=== PATIENT | male | born 1955 | race Caucasian/White ===

== ENCOUNTER 2020-07-03 17:02 | Inpatient (IN) | payer OTHER, SELFPAY ==
[2020-07-03] VITALS (7 sets, daily range): BP systolic 122–148; BP diastolic 60–90; PULSE 95–108; RESP 18–30; TEMP 37.3–37.8; O2SAT 88–95; BMI 34.4
[2020-07-03] MEDS: Acetaminophen 325 MG TABLET 650 MG PO (17:23)
[2020-07-03 17:26] LABS: MANUAL DIFF FLAG NO
--- NOTE | 2020-07-03 17:29 | CT_ITS ---
EXAMINATION: CT ANGIOGRAM OF THE CHEST WITH AND WITHOUT CONTRAST (CT PULMONARY ANGIOGRAM FOR PE) CLINICAL INFORMATION: Reason for Exam Shortness of breath, tachycardia, tachypnea, positive COVID COMPARISON: None TECHNIQUE: Prior to contrast administration, noncontrast localization images were obtained. Subsequently, multidetector volumetric imaging was performed from the thoracic inlet to below the diaphragms following the administration of 65 mL Omnipaque 350 intravenous contrast. No contrast reaction reported Sagittal, coronal, and MIP oblique sagittal reformatted images were obtained on the CT workstation, uploaded to PACS, and reviewed. This CT examination was performed using dose optimization techniques as appropriate, variously including the following: *Automated exposure control *Adjustment of mA and/or kV according to patient size (this includes techniques or standardized protocols for targeted exams where dose is matched to indication/reason for exam; i.e. extremities or head) *Use of iterative reconstruction technique Total exam dose-length product 397 mGy-cm FINDINGS: QUALITY OF STUDY/CONTRAST BOLUS: Suboptimal. PULMONARY ARTERIES: No large central or segmental pulmonary emboli. THORACIC AORTA: No aneurysm or dissection. LUNG: Scattered peripheral groundglass infiltrates are present suggestive of Covid 19 lung disease. PLEURA: No pleural effusion or pneumothorax. MEDIASTINUM: Normal heart size. No pericardial effusion. Coronary calcifications are present. No hilar or mediastinal lymphadenopathy. No evidence of septal bowing or right heart strain. CHEST WALL/AXILLA: No axillary or internal mammary lymphadenopathy. OSSEOUS STRUCTURES: No acute or suspicious osseous abnormality. UPPER ABDOMEN: Marked hepatic steatosis is present. No reflux of contrast into the hepatic veins to suggest elevated right heart pressures. CT/CT angio chest PE protocol IMPRESSION: 1. Suboptimal exam but no large central or segmental pulmonary emboli are seen. 2. Lung changes consistent with Covid 19 pulmonary disease. 3. Hepatic steatosis VTE: Negative, but suboptimal
[2020-07-03 17:30] LABS: Basophils Percent Auto 0.3 % (0-2); Hematocrit 45.8 % (42-52); Hemoglobin 15.3 g/dl (14.0-18.0); Imm Gran Abs Auto 0.02 X10*3/uL (0.00-0.03); Imm Gran Pct Auto 0.6 % (0.0-0.4); Lymphocytes Absolute Auto 1.4 X10*3/uL (1.2-4.9); Lymphocytes Percent Auto 39.1 % (20-40); Mean Corpuscular HGB Conc 33.4 g/dl (31.0-36.0); Mean Corpuscular Hemoglobin 30.1 pg (27.0-33.0); Mean Platelet Volume 10.1 fL (9.4-12.4); Monocytes Absolute Auto 0.4 X10*3/uL (0.1-1.2); Neutrophils Absolute Auto 1.8 X10*3/uL (2.0-8.3); Red Blood Count 5.09 X10*6/uL (4.60-5.80); Red Cell Distribution Width 13.1 % (11.0-16.0); White Blood Count 3.5 X10*3/uL (4.8-10.8)
[2020-07-03 17:31] LABS: Platelet Count 87 X10*3/uL (160-400)
--- NOTE | 2020-07-03 17:37 | ED.SOB ---
HPI - SOB/Dyspnea General Chief Complaint: Dyspnea Stated Complaint: INC SOB W/COUGH,+COVID 07/01/19 Time Seen by Provider: 07/03/20 17:24 Source: patient Mode of arrival: ambulatory Limitations: no limitations History of Present Illness HPI Narrative: This is 65-year-old male who reports history of lumbar disc disease status post back surgery, left knee surgery who presents via EMS from home with complaint of progressively worsening shortness of breath over the past couple of days. He reports 3 days ago he tested positive for COVID 19 after having several days of upper respiratory symptoms and ever since then he has been having shortness of breath worsening with exertion and feels like can not catch his breath. Upon arrival patient hypoxic at 88% on room air tachypneic and tachycardic improved with oxygen. Denies any prior cardiopulmonary history. MD elicited complaint: shortness of breath Related Data Home Medications Medication Instructions Recorded Confirmed No Known Home Meds 07/03/20 07/03/20 Allergies Allergy/AdvReac Type Severity Reaction Status Date / Time No Known Allergies Allergy Verified 07/03/20 17:13 Review of Systems Review of Systems: Constitutional: No Weight loss, No Fever, + Chills, + Night Sweats, No Fatigue, No Malaise ENT/Mouth: No Hearing loss, No Ear Pain, No Sinus Pain, No Hoarseness, No sore throat, + Rhinorrhea, No Swallowing Difficulty Eyes: No Eye Pain, No Swelling, No Redness, No Foreign Body, No Discharge, No Vision Changes Cardiovascular: No Chest Pain, + SOB, + Dyspnea on Exertion, No Edema, No Palpitations Respiratory: + Cough, No Sputum, No Wheezing, No Smoke Exposure, No Dyspnea Gastrointestinal: No Nausea, No Vomiting, No Diarrhea, No Constipation, No abdominal Pain, No Hematochezia, No Melena Genitourinary: no irregular bleeding, No Dysuria, No Urinary Frequency, No Hematuria, No Urinary Incontinence, No Urgency Musculoskeletal: No joint pain, No Myalgias, No Joint Swelling Skin: No Skin Lesions, No rash Neuro: No Weakness, No Numbness, No Paresthesias, No Loss of Consciousness, No Dizziness, No Headache Psych: No Social Issues Heme/Lymph: No Bruising, No Bleeding,No Lymphadenopathy Endocrine: No Polyuria, No Polydipsia, No Temperature Intolerance Yes all other systems are reviewed and are negative PMFSH Past Medical History Medical History No known health problems Social History Social History Alcohol intake: current Alcohol intake frequency: a few times a month Alcohol type: beer Smoking Status: Former smoker Use of substances other than those prescribed or required for medical reasons: No Advance Directives: No Advance Directives Information Provided: Yes Physical Exam Vital Signs: Vital Signs: Last Vital Signs Temp 99.1 F 07/03/20 19:22 Pulse 98 07/03/20 19:22 Resp 24 H 07/03/20 19:22 BP 127/73 07/03/20 19:22 Pulse Ox 94 07/03/20 19:22 Body Mass Index 34.4 Reviewed Const: General: cooperative and in distress (Mild without oxygen improved significantly with 4 L of nasal cannula) respiratory; No intoxicated appearing Nutritional Appearance: average body habitus Orientation/consciousness: patient oriented x3 HENMT: Head: Yes normal to inspection Ears: hearing grossly normal bilaterally Eyes: General: appearance normal, both eyes and all related structures Visual Harrison: normal visual harrison by confrontation Neck: Neck: Yes normal visual inspection, No positive Brudzinski's sign, No positive Kernig's sign and No tender Thyroid: Thyroid normal Chest: Chest palpation & inspection: normal inspection of the chest Resp: Effort & Inspection: normal respiratory effort Cardio: Jugular venous distension: no JVD GI: Inspection: Yes normal to inspection Percussion: Yes normal to percussion Auscultation: normal bowel sounds : General: Yes no CVA tenderness Back/Spine/Pelvis: Back: no CVA tenderness Skin: General skin exam: no rashes or lesions noted Neuro: General: patient oriented x3 Extrem: General: Yes normal to inspection Course Course Course Narrative: 1730 In review 65-year-old male with history of back surgery and left knee surgery presenting via EMS with worsening cough and dyspnea for the past 3 days after testing positive for COVID-19 at Urgent Care in [place] and has been progressively getting worse with symptoms since. Upon arrival febrile, hypoxic, tachypneic, tachycardic improved with supplemental oxygen. COVID stratification labs along with cardiac enzymes, EKG chest x-ray ordered. Will treat with supportive care with nebs, steroids and go ahead and empirically cover for atypical PNA with ceftriaxone/ azithromycin. His SpO2 saturation 93 % NC- Will likely require admission. Rx consult placed. Reevaluation(s) Reevaluation #1: Resting comfortably after receiving treatment. In no acute distress SpO2 94% on 4 L. Does drop significantly without oxygen. CTA without evidence of pulmonary embolism does show scattered peripheral infiltrate consistent with COVID-19. Consultations Consultation #1: 5 Case discussed with hospitalist Elva accepted to service for admission. MDM - SOB/Dyspnea Differential Diagnosis Differential diagnosis: Likely pneumonia (COVID-19, COVID-19 pneumonia), pulmonary embolism and pleural effusion; Unlikely acute exacerbation of chronic obstructive airways disease, congestive heart failure, asthma with exacerbation, sleep apnea and anemia Medical Records Attestation: I reviewed the patient's medical records. Lab Data Attestation: I reviewed the patient's lab results. Result diagrams: 07/03/20 17:18 07/03/20 17:17 Labs: Lab Results 07/03/20 07/03/20 07/03/20 Range/Units 17:17 17:17 17:17 WBC (4.8-10.8) X10*3/uL RBC (4.60-5.80) X10*6/uL Hgb (14.0-18.0) g/dl Hct (42-52) % MCV (80-98) fL MCH (27.0-33.0) pg MCHC (31.0-36.0) g/dl RDW (11.0-16.0) % Plt Count (160-400) X10*3/uL MPV (9.4-12.4) fL Immature Gran % (Auto) (0.0-0.4) % Neut % (Auto) (45-73) % Lymph % (Auto) (20-40) % [place] % (Auto) (2-11) % Eos % (Auto) (0-4) % Baso % (Auto) (0-2) % Lymph # (Auto) (1.2-4.9) X10*3/uL [place] # (Auto) (0.1-1.2) X10*3/uL Eos # (Auto) (0.0-0.4) X10*3/uL Baso # (Auto) (0.0-0.2) X10*3/uL Abs Immat Gran (auto) (0.00-0.03) X10*3/uL Absolute Neuts (auto) (2.0-8.3) X10*3/uL Absolute Nucleated RBC (0.0-0.012) X10*3/uL Nucleated RBC % (auto) (0.0-0.2) /100WBC Hold Purple Top PT 14.0 H (10.8-13.0) SEC INR 1.2 H (0.9-1.1) APTT 34.9 (24.1-38.0) SEC Hold Blue Top SEE NOTE Sodium 141 (135-145) mmol/L Potassium 4.2 (3.3-5.1) mmol/l Chloride 104 (96-108) mmol/L Carbon Dioxide 25 (22-29) mmol/L Anion Gap 16 (12-20) BUN 18 H (9-16) mg/dL Creatinine 1.04 (0.5-1.4) mg/dL Estim Creat Clear Calc 88.6 Estimated GFR > 60 Random Glucose 115 (60-115) mg/dL Lactic Acid 1.9 (0.5-2.0) mmol/L Calcium 8.2 L (8.4-10.2) mg/dL Ferritin 1356 H (20-250) ng/mL Lactate Dehydrogenase 258 (118-273) U/L Troponin I High Sens (<3.5-35.0) ng/L C-Reactive Protein 5.05 H (< or = 0.50) mg/dL Procalcitonin ng/mL Hold Yellow Top 07/03/20 07/03/20 07/03/20 Range/Units 17:18 17:18 17:18 WBC 3.5 L (4.8-10.8) X10*3/uL RBC 5.09 (4.60-5.80) X10*6/uL Hgb 15.3 (14.0-18.0) g/dl Hct 45.8 (42-52) % MCV 90.0 (80-98) fL MCH 30.1 (27.0-33.0) pg MCHC 33.4 (31.0-36.0) g/dl RDW 13.1 (11.0-16.0) % Plt Count 87 L (160-400) X10*3/uL MPV 10.1 (9.4-12.4) fL Immature Gran % (Auto) 0.6 H (0.0-0.4) % Neut % (Auto) 50.0 (45-73) % Lymph % (Auto) 39.1 (20-40) % [place] % (Auto) 10.0 (2-11) % Eos % (Auto) 0.0 (0-4) % Baso % (Auto) 0.3 (0-2) % Lymph # (Auto) 1.4 (1.2-4.9) X10*3/uL [place] # (Auto) 0.4 (0.1-1.2) X10*3/uL Eos # (Auto) 0.0 (0.0-0.4) X10*3/uL Baso # (Auto) 0.0 (0.0-0.2) X10*3/uL Abs Immat Gran (auto) 0.02 (0.00-0.03) X10*3/uL Absolute Neuts (auto) 1.8 L (2.0-8.3) X10*3/uL Absolute Nucleated RBC 0.000 (0.0-0.012) X10*3/uL Nucleated RBC % (auto) 0.0 (0.0-0.2) /100WBC Hold Purple Top SEE NOTE PT (10.8-13.0) SEC INR (0.9-1.1) APTT (24.1-38.0) SEC Hold Blue Top Sodium (135-145) mmol/L Potassium (3.3-5.1) mmol/l Chloride (96-108) mmol/L Carbon Dioxide (22-29) mmol/L Anion Gap (12-20) BUN (9-16) mg/dL Creatinine (0.5-1.4) mg/dL Estim Creat Clear Calc Estimated GFR Random Glucose (60-115) mg/dL Lactic Acid (0.5-2.0) mmol/L Calcium (8.4-10.2) mg/dL Ferritin (20-250) ng/mL Lactate Dehydrogenase (118-273) U/L Troponin I High Sens (<3.5-35.0) ng/L C-Reactive Protein (< or = 0.50) mg/dL Procalcitonin ng/mL Hold Yellow Top See Note 07/03/20 07/03/20 Range/Units 17:18 17:18 WBC (4.8-10.8) X10*3/uL RBC (4.60-5.80) X10*6/uL Hgb (14.0-18.0) g/dl Hct (42-52) % MCV (80-98) fL MCH (27.0-33.0) pg MCHC (31.0-36.0) g/dl RDW (11.0-16.0) % Plt Count (160-400) X10*3/uL MPV (9.4-12.4) fL Immature Gran % (Auto) (0.0-0.4) % Neut % (Auto) (45-73) % Lymph % (Auto) (20-40) % [place] % (Auto) (2-11) % Eos % (Auto) (0-4) % Baso % (Auto) (0-2) % Lymph # (Auto) (1.2-4.9) X10*3/uL [place] # (Auto) (0.1-1.2) X10*3/uL Eos # (Auto) (0.0-0.4) X10*3/uL Baso # (Auto) (0.0-0.2) X10*3/uL Abs Immat Gran (auto) (0.00-0.03) X10*3/uL Absolute Neuts (auto) (2.0-8.3) X10*3/uL Absolute Nucleated RBC (0.0-0.012) X10*3/uL Nucleated RBC % (auto) (0.0-0.2) /100WBC Hold Purple Top PT (10.8-13.0) SEC INR (0.9-1.1) APTT (24.1-38.0) SEC Hold Blue Top Sodium (135-145) mmol/L Potassium (3.3-5.1) mmol/l Chloride (96-108) mmol/L Carbon Dioxide (22-29) mmol/L Anion Gap (12-20) BUN (9-16) mg/dL Creatinine (0.5-1.4) mg/dL Estim Creat Clear Calc Estimated GFR Random Glucose (60-115) mg/dL Lactic Acid (0.5-2.0) mmol/L Calcium (8.4-10.2) mg/dL Ferritin (20-250) ng/mL Lactate Dehydrogenase (118-273) U/L Troponin I High Sens 3.6 (<3.5-35.0) ng/L C-Reactive Protein (< or = 0.50) mg/dL Procalcitonin 0.03 ng/mL Hold Yellow Top Imaging Data CTA chest: Radiologist's impression: [address] [address] [address] Scan Report Signed Patient: Mohan GoldMR#: [id number] : 6Acct:[id number] Age/Sex: 65 / MADM Date: 07/03/20 Loc: .ED Attending Dr: Ordering Physician: Tesfaye Nicholson NP Date of Service: 07/03/20 Procedure(s): CT angio chest PE protocol Accession Number(s): [id number] cc: Tesfaye Nicholson 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 Subsequently, multidetector volumetric imaging was performed from the thoracic inlet to below the diaphragms following the administration of 65 mL Omnipaque 350 intravenous contrast. No contrast reaction reported Sagittal, coronal, and MIP oblique sagittal reformatted images were obtained on the CT workstation, uploaded to PACS, and reviewed. This CT examination was performed using dose optimization techniques as appropriate, variously including the following: *Automated exposure control *Adjustment of mA and/or kV according to patient size (this includes techniques or standardized protocols for targeted exams where dose is matched to indication/reason for exam; i.e. extremities or head) *Use of iterative reconstruction technique Total exam dose-length product 397 mGy-cm FINDINGS: QUALITY OF STUDY/CONTRAST BOLUS: Suboptimal. PULMONARY ARTERIES: No large central or segmental pulmonary emboli. THORACIC AORTA: No aneurysm or dissection. LUNG: Scattered peripheral groundglass infiltrates are present suggestive of Covid 19 lung disease. PLEURA: No pleural effusion or pneumothorax. MEDIASTINUM: Normal heart size. No pericardial effusion. Coronary calcifications are present. No hilar or mediastinal lymphadenopathy. No evidence of septal bowing or right heart strain. CHEST WALL/AXILLA: No axillary or internal mammary lymphadenopathy. OSSEOUS STRUCTURES: No acute or suspicious osseous abnormality. UPPER ABDOMEN: Marked hepatic steatosis is present. No reflux of contrast into the hepatic veins to suggest elevated right heart pressures. CT/CT angio chest PE protocol IMPRESSION: 1. Suboptimal exam but no large central or segmental pulmonary emboli are seen. 2. Lung changes consistent with Covid 19 pulmonary disease. 3. Hepatic steatosis VTE: Negative, but suboptimal Dictated By:AROLDO VIVAS MD Signed By:<Electronically signed by AROLDO VIVAS MD in [place]>07/03/20 1910 DD/ 1729 TD/TT: Spinning Mule Operator: MARK ECG Data Interpretation: Sinus tachycardia Rate [address] segment changes No previous to compare to Discharge Plan Discharge Clinical Impression: COVID-19, Hypoxia Patient Disposition: Admitted As Inpatient Prescriptions: No Action No Known Home Meds RF: 0
[2020-07-03 17:48] LABS: Lactic Acid 1.9 mmol/L (0.5-2.0)
[2020-07-03 17:50] LABS: Anion Gap 16 (12-20); Blood Urea Nitrogen 18 mg/dL (9-16); Calcium 8.2 mg/dL (8.4-10.2); Carbon Dioxide 25 mmol/L (22-29); Chloride 104 mmol/L (96-108); Creatinine Clr Calc Pharmacy 88.6; Estimated Glomerular Filt Rate > 60; Glucose Random 115 mg/dL (60-115); Potassium 4.2 mmol/l (3.3-5.1); Sodium 141 mmol/L (135-145)
[2020-07-03 17:52] LABS: INTERNATIONAL NORM RATIO 1.2 (0.9-1.1)
[2020-07-03] MEDS: dexAMETHasone sod phosphate 4 MG/ML VIAL 6 MG IVPUSH (17:53)
[2020-07-03] MEDS: cefTRIAXone sodium 1 GM in 0.9 % Sodium Chloride 50 ML IV ×2 (17:54→21:52)
[2020-07-03 17:55] LABS: Partial Thromboplastin Time 34.9 SEC (24.1-38.0)
[2020-07-03] MEDS: Albuterol Sulfate 90 MCG 8 GM INHALER 4 PUFF INHALE (17:56)
[2020-07-03 17:59] LABS: C Reactive Protein 5.05 mg/dL (< or = 0.50); Lactate Dehydrogenase 258 U/L (118-273)
[2020-07-03] MEDS: iohexoL 350 MG/ML 100 ML INFUS..BTL IV (18:09)
[2020-07-03 18:21] LABS: Ferritin 1356 ng/mL (20-250)
[2020-07-03 18:29] LABS: Troponin-I High Sensitivity 3.6 ng/L (<3.5-35.0)
[2020-07-03] MEDS: Azithromycin 500 MG in 0.9 % Sodium Chloride 250 ML 125 MG IV ×2 (18:30→22:11)
[2020-07-03 18:31] LABS: Procalcitonin 0.03 ng/mL
--- NOTE | 2020-07-03 19:21 | PM.IMHP ---
History of Present Illness Date of Service: 07/03/20 <Elva Feliciano NP - Last Filed: 07/03/20 20:07> Chief Complaint: Shortness of breath <Elva Feliciano NP - Last Filed: 07/03/20 20:07> 65 year old man with no significant medical history presenting with worsening shortness of breath since his Covid 19 diagnosis on Thursday. he reports that he had been together with some of his family approximately 2 weeks ago and then his and mother with whom he lives with started feeling ill. They went to an urgent care and were subsequently diagnosed with COVID-19. He reports worsening shortness of breath over the last 24 hours with cough, clear phlegm, fever, chills, runny nose. He denies nausea, vomiting, diarrhea, chest pain. Ferritin was 1356, lactic acid 1.9, LDH 258. all of his other labs were within acceptable limits. He was noted to be hypoxic at 80% on room air arrival to the ER. He was given a dose Rocephin azithromycin, Decadron, albuterol, Tylenol appear to be admitted for further management of acute respiratory failure secondary to COVID-19. <Elva Feliciano NP - Last Filed: 07/03/20 20:07> Review of Systems Review of Systems: Denies any recent fever chills or decrease in appetite respiratory See HPI cardiovascular is adjustment of any PND or edema gastrointestinal denies any dysphagia abdominal pain nausea vomiting or diarrhea genitourinary denies any dysuria frequency or hematuria musculoskeletal denies any joint pain or swelling neuropsych denies any weakness or seizures all other systems reviewed are negative <Elva Feliciano NP - Last Filed: 07/03/20 20:07> [facility] Medical History: Medical History (Updated 08/02/20 @ 00:00 by Omero White) No known health problems Pneumomediastinum Pneumothorax <DEZ Davis Last Filed: 07/03/20 20:07> Pertinent family history: diabetes <Elva Feliciano NP - Last Filed: 07/03/20 20:07> Surgical History: Surgical History H/O knee surgery <DEZ Davis Last Filed: 07/03/20 20:07> Social History: Social History Household Members: Spouse Housing: House Alcohol intake: current Alcohol intake frequency: a few times a month Alcohol type: beer Smoking Status: Former smoker service: No <Elva Feliciano NP - Last Filed: 07/03/20 20:07> Meds Allergies/Adverse reactions: Allergies Allergy/AdvReac Type Severity Reaction Status Date / Time No Known Allergies Allergy Verified 07/03/20 17:13 <Elva Feliciano NP - Last Filed: 07/03/20 20:07> Home medications: Home Medications Medication Instructions Recorded Confirmed Type No Known Home Meds 07/03/20 07/03/20 History <Elva Feliciano NP - Last Filed: 07/03/20 20:07> Physical Exam Vital Signs and Narrative: Vital Signs: Last Vital Signs Temp 99.3 F 07/03/20 18:39 Pulse 95 07/03/20 18:39 Resp 18 07/03/20 18:39 BP 127/73 07/03/20 18:39 Pulse Ox 94 07/03/20 18:39 Body Mass Index 34.4 <Elva Feliciano NP - Last Filed: 07/03/20 20:07> Appearing in no acute distress head is normocephalic atraumatic eyes pupils are PERRLA sclera is anicteric mouth throat mucous membranes are intact and moist neck is supple no lymphadenopathy, no JVD noted lung sounds are clear to auscultation heart regular rate rhythm, clear S1, S2 positive bowel sounds, abdomen is soft, nontender neuro patient is alert x3, no focal deficits <Elva Feliciano NP - Last Filed: 07/03/20 20:07> Results Labs CBC and Chem 7: : 07/23/20 05:30 07/24/20 05:27 <Elva Feliciano NP - Last Filed: 07/03/20 20:07> Labs: Laboratory Results - last 24 hr 07/03/20 07/03/20 07/03/20 17:17 17:17 17:17 MCV MCH MCHC RDW Plt Count MPV Immature Gran % (Auto) Neut % (Auto) Lymph % (Auto) [place] % (Auto) Eos % (Auto) Baso % (Auto) Lymph # (Auto) [place] # (Auto) Eos # (Auto) Baso # (Auto) Abs Immat Gran (auto) Absolute Neuts (auto) Absolute Nucleated RBC Nucleated RBC % (auto) Hold Purple Top PT 14.0 H INR 1.2 H APTT 34.9 Hold Blue Top SEE NOTE Anion Gap 16 Estim Creat Clear Calc 88.6 Estimated GFR > 60 Random Glucose 115 Lactic Acid 1.9 Calcium 8.2 L Ferritin 1356 H Lactate Dehydrogenase 258 Troponin I High Sens C-Reactive Protein 5.05 H Procalcitonin Hold Yellow Top 07/03/20 07/03/20 07/03/20 17:18 17:18 17:18 MCV 90.0 MCH 30.1 MCHC 33.4 RDW 13.1 Plt Count 87 L MPV 10.1 Immature Gran % (Auto) 0.6 H Neut % (Auto) 50.0 Lymph % (Auto) 39.1 [place] % (Auto) 10.0 Eos % (Auto) 0.0 Baso % (Auto) 0.3 Lymph # (Auto) 1.4 [place] # (Auto) 0.4 Eos # (Auto) 0.0 Baso # (Auto) 0.0 Abs Immat Gran (auto) 0.02 Absolute Neuts (auto) 1.8 L Absolute Nucleated RBC 0.000 Nucleated RBC % (auto) 0.0 Hold Purple Top SEE NOTE PT INR APTT Hold Blue Top Anion Gap Estim Creat Clear Calc Estimated GFR Random Glucose Lactic Acid Calcium Ferritin Lactate Dehydrogenase Troponin I High Sens C-Reactive Protein Procalcitonin Hold Yellow Top See Note 07/03/20 07/03/20 17:18 17:18 MCV MCH MCHC RDW Plt Count MPV Immature Gran % (Auto) Neut % (Auto) Lymph % (Auto) [place] % (Auto) Eos % (Auto) Baso % (Auto) Lymph # (Auto) [place] # (Auto) Eos # (Auto) Baso # (Auto) Abs Immat Gran (auto) Absolute Neuts (auto) Absolute Nucleated RBC Nucleated RBC % (auto) Hold Purple Top PT INR APTT Hold Blue Top Anion Gap Estim Creat Clear Calc Estimated GFR Random Glucose Lactic Acid Calcium Ferritin Lactate Dehydrogenase Troponin I High Sens 3.6 C-Reactive Protein Procalcitonin 0.03 Hold Yellow Top <Elva Feliciano NP - Last Filed: 07/03/20 20:07> Imaging Radiologist's Impressions: Impressions Chest CTA 07/03/20 17:29 IMPRESSION: 1. Suboptimal exam but no large central or segmental pulmonary emboli are seen. 2. Lung changes consistent with Covid 19 pulmonary disease. 3. Hepatic steatosis VTE: Negative, but suboptimal <Elva Feliciano NP - Last Filed: 07/03/20 20:07> Assessment and Plan (1) COVID-19: Status: Deleted <Elva Feliciano NP - Last Filed: 07/03/20 20:07> (2) Hypoxia: Status: Deleted <Elva Feliciano NP - Last Filed: 07/03/20 20:07> 65 year old man admitted with acute respiratory failure secondary to Covid 19. Acute hypoxic respiratory failure secondary to covid 19. continue supplemental oxygen. Decadron, Rocephin, azithromycin for viral pneumonia. Id consult. Amy for cough. Obesity. BMI 34.4. Discussed importance of weight loss. DVT prophylaxis with Lovenox. Discussed with Dr. Heart Full code <Elva Feliciano NP - Last Filed: 07/03/20 20:07>
[2020-07-03] MEDS: guaiFENesin DM 100/10/5 ML 5 ML SYRUP PO (22:14)
[2020-07-04] VITALS (8 sets, daily range): BP systolic 117–131; BP diastolic 61–83; PULSE 86–118; RESP 16–35; TEMP 36.4–38.4; O2SAT 90–99; BMI 34.4
[2020-07-04] MEDS: 0.9 % Sodium Chloride Flush 3 ML SYRINGE IVFLUSH ×3 (00:07→16:46)
[2020-07-04] MEDS: guaiFENesin DM 100/10/5 ML 5 ML SYRUP PO ×3 (04:14→17:47)
[2020-07-04 06:51] LABS: Hematocrit 42.8 % (42-52); Hemoglobin 14.5 g/dl (14.0-18.0); Imm Gran Abs Auto 0.01 X10*3/uL (0.00-0.03); Imm Gran Pct Auto 0.4 % (0.0-0.4); Lymphocytes Absolute Auto 0.6 X10*3/uL (1.2-4.9); Lymphocytes Percent Auto 23.7 % (20-40); MANUAL DIFF FLAG SCAN; Mean Corpuscular HGB Conc 33.9 g/dl (31.0-36.0); Mean Corpuscular Hemoglobin 30.3 pg (27.0-33.0); Mean Corpuscular Volume 89.5 fL (80-98); Mean Platelet Volume 10.1 fL (9.4-12.4); Monocytes Absolute Auto 0.3 X10*3/uL (0.1-1.2); Monocytes Percent Auto 9.6 % (2-11); Neutrophils Absolute Auto 1.8 X10*3/uL (2.0-8.3); Neutrophils Percent Auto 66.3 % (45-73); Red Blood Count 4.78 X10*6/uL (4.60-5.80); Red Cell Distribution Width 13.1 % (11.0-16.0); SCAN SMEAR FLAG 1; White Blood Count 2.7 X10*3/uL (4.8-10.8)
[2020-07-04 06:53] LABS: Platelet Count 90 X10*3/uL (160-400)
[2020-07-04 07:04] LABS: Anion Gap 19 (12-20); Blood Urea Nitrogen 17 mg/dL (9-16); Calcium 8.3 mg/dL (8.4-10.2); Carbon Dioxide 19 mmol/L (22-29); Chloride 105 mmol/L (96-108); Creatinine Clr Calc Pharmacy 112.4; Estimated Glomerular Filt Rate > 60; Glucose Random 131 mg/dL (60-115); Potassium 4.2 mmol/l (3.3-5.1); Sodium 139 mmol/L (135-145)
[2020-07-04 07:36] LABS: SLIDE REVIEW VERIFIED
--- NOTE | 2020-07-04 08:27 | MHC.CM.PN ---
pt lives c his in their home . he reports that he is independent in his care. his is able to help him should he need it, this will include a ride home at dc. at this time there is no need for any svcs at dc. dc plan is therefore home no svcs. cm to cont. to follow.
--- NOTE | 2020-07-04 10:09 | HO.PM.IMPN ---
Subjective Subjective Date of Service: 07/05/20 Interval History: Seen in follow-up for acute hypoxic respiratory failure due to COVID infection. Still having difficulty breathing and coughing a lot. Robitussin does not seem to be helping. Review of Systems Gen: no fever Resp: + sob, + cough CV: no chest, no العلي, no leg edema GI: No n/v, no abd pain Neuro: No confusion Physical Exam Vital Signs: Vital Signs: Last Vital Signs Temp 97.9 F 07/04/20 08:00 Pulse 103 H 07/04/20 08:00 Resp 20 07/04/20 08:00 BP 124/79 07/04/20 08:00 Pulse Ox 92 07/04/20 08:00 Body Mass Index 34.4 General: AO X 3, no acute distress Resp: CTA bilateral CVS: S1,S2,RRR GI: +BS, NT, no distention Skin: No rash Neuro: motor grossly intact Psych: appropriate affect Objective Data Current Medications Generic Name Dose Route Start Last Admin Trade Name Freq PRN Reason Stop Dose Admin Acetaminophen 650 mg 07/03/20 21:05 Acetaminophen 325 Mg Tablet PO Q6H PRN Pain, Mild (Pain Scale 1-3) Dexamethasone Sodium Phosphate 6 mg 07/04/20 09:00 Dexamethasone Sod Phosphate 4 Mg/Ml Vial IVPUSH DAILY ASCENCION Guaifenesin/Dextromethorphan 5 ml 07/03/20 22:05 07/04/20 04:14 Guaifenesin Dm 100/10/5 Ml 5 Ml Syrup PO 5 ml Q6H PRN Administration cough Ceftriaxone Sodium 1 gm/ 50 mls @ 100 mls/hr 07/03/20 21:05 07/03/20 22:22 Sodium Chloride IV Infused Q24H ASCENCION Infusion Azithromycin 500 mg/ Sodium 250 mls @ 125 mls/hr 07/03/20 21:05 07/04/20 00:12 Chloride IV Infused Q24H ASCENCION Infusion Ondansetron HCl 4 mg 07/03/20 21:05 Ondansetron Hcl 4 Mg/2 Ml Vial IVPUSH Q8H PRN Nausea and Vomiting Pharmacy Consult 1 each 07/03/20 17:48 Consult Rx Perform Med Rec MISCELLANE ONCE PRN Consult order Sodium Chloride 3 ml 07/04/20 00:00 07/04/20 00:07 0.9 % Sodium Chloride Flush 3 Ml Syringe IVFLUSH 3 ml QSHIFT ASCENCION Administration Labs CBC & Chem 7: 07/04/20 06:05 07/04/20 06:05 Assessment and Plan (1) COVID-19: Status: Acute (2) Hypoxia: Status: Acute Assessment and Plan: 65 year old man admitted with acute respiratory failure secondary to Covid 19. Acute hypoxic respiratory failure secondary to covid 19. Covid pneumonia -O2 to maintain saturation 90% or greater. -id consult -Decadron for 10 days, d2/10 -id to decide for or against Remdesevir -empiric doxycycline and ceftriaxone in the event days severe underlying arterial infection. Obesity. BMI 34.4. Discussed importance of weight loss. DVT prophylaxis with Lovenox. Full code
[2020-07-04] MEDS: dexAMETHasone sod phosphate 4 MG/ML VIAL 6 MG IVPUSH (11:30)
[2020-07-04] MEDS: Enoxaparin Sodium 40 MG/0.4 ML SYRINGE SUBCUT (11:31)
--- NOTE | 2020-07-04 12:14 | PC.NURSE ---
pt c/o SOB at rest and upon exertion. SPO2 93% on 4L 02, lungs dimininished throughout. incentive spirometer at bedside. pt educated on use and demonstrates understanding. PRN cough medicine given upon request. denies dizziness/lightheadedness. updated via phone call.
--- NOTE | 2020-07-04 14:23 | W.PM.IDCN ---
History of Present Illness Data of Consult Service Date: 07/04/20 Primary Care Provider: Chaz Bearden MD [facility] Reason for consult: shortness of breath He presents to hospital with worsening shortness of breath with worsening dry cough over last 3 days He has had symptoms of shortness of breath since 06/24 after exposure 06/16 to six family members at a get together He has had chills and weakness His is also ill with COVID but not as symptomatic Review of Systems Review of Systems: Yes all other systems are reviewed and are negative Cardiovascular: Cardiovascular: Reports dyspnea Respiratory: Respiratory: Reports cough and Reports dyspnea PMFSH Past Medical History Medical History No known health problems Family History Family history: reviewed and not pertinent Surgical History Surgical History H/O knee surgery Social History Social History Household Members: Spouse Housing: House Do you presently have visiting nurse or other home services: No Alcohol intake: current Alcohol intake frequency: a few times a month Alcohol type: beer Smoking Status: Former smoker Use of substances other than those prescribed or required for medical reasons: No Currently Displaying Signs/Symptoms of Drug Intoxication Withdrawal: No Have you been hit, kicked, punched, or otherwise hurt by someone within the past year? If so, by whom?: No Do you feel safe in your current relationship?: Yes Is there a partner from a previous relationship who is making you feel unsafe now?: No Are you made to feel afraid or neglected: No Advance Directives: No Advance Directives Information Provided: Yes Do you have thoughts of harming others: None Do you have a plan to hurt others: No Plan Recently lost weight without trying: No service: No Meds Allergies Allergy/AdvReac Type Severity Reaction Status Date / Time No Known Allergies Allergy Verified 07/03/20 17:13 Home Medications Medication Instructions Recorded Confirmed Type No Known Home Meds 07/03/20 07/03/20 History Physical Exam Vital Signs: Vital Signs: Last Vital Signs Temp 97.5 F 07/04/20 11:43 Pulse 105 H 07/04/20 11:43 Resp 16 07/04/20 11:43 BP 122/75 07/04/20 11:43 Pulse Ox 93 07/04/20 11:43 Body Mass Index 34.4 Const: Other: he is slumped over guardrail in bed trying to use incentive spirometer General: cooperative Orientation/consciousness: oriented to person, oriented to place and oriented to time HENMT: Head: Yes normal to inspection Ears: hearing grossly normal bilaterally Mouth: Normal oral and palatal mucosa present Eyes: General: appearance normal, both eyes and all related structures Resp: Effort & Inspection: abnormal respiratory pattern and labored Cardio: Rate: tachycardic Rhythm: regular rhythm GI: Inspection: Yes normal to inspection Palpation (GI): Soft to palpation and nontender : General: Yes no CVA tenderness Back/Spine/Pelvis: Back: no CVA tenderness Skin: General skin exam: no rashes or lesions noted Neuro: General: oriented to person, oriented to place and oriented to time Extrem: General: Yes normal to inspection Assessment and Plan (1) COVID-19: Problem details: Moderate COVID He has worsening respiratory status and is now day 11 of symptoms He has no evidence of bacterial pneumonia with no productive sputum,no leukocytosis ,no lobar pneumonia and very low procalcitonin of .03 which is indicative of viral not bacterial process Antibiotics are not used to treat viral or postviral lung process It is possible for him to have lung damage ?pulmonary fibrosis pattern post COVID Remdesivir is not useful except for early viral phase when there is is high viral load Status: Acute Can still use steroids although he is at outer limit of their benefit as well, give for 10 days Stop Ceftriaxone and Azithromycin No Remdesivir indication Oxygen support Isolation (2) Hypoxia: Status: Acute Results Labs CBC & Chem 7: 07/04/20 06:05 07/04/20 06:05 Labs: Short CBC 07/03/20 07/04/20 Range/Units 17:18 06:05 WBC 3.5 L 2.7 L (4.8-10.8) X10*3/uL Hgb 15.3 14.5 (14.0-18.0) g/dl Hct 45.8 42.8 (42-52) % Plt Count 87 L 90 L (160-400) X10*3/uL BMP 07/03/20 07/04/20 17:17 06:05 Sodium 141 139 Potassium 4.2 4.2 Chloride 104 105 Carbon Dioxide 25 19 L BUN 18 H 17 H Creatinine 1.04 0.82 Calcium 8.2 L 8.3 L
[2020-07-04] MEDS: Acetaminophen 325 MG TABLET 650 MG PO (20:42)
[2020-07-04] MEDS: diphenhydrAMINE HCL 50 MG/ML VIAL 25 MG IVPUSH (20:42)
[2020-07-04] MEDS: HYDROcodone/Homat 5/1.5/5 ML 5 ML SYRUP PO (20:59)
[2020-07-04] MEDS: Albuterol Sulfate 90 MCG 8 GM INHALER 2 PUFF INHALE (22:00)
[2020-07-05] VITALS (7 sets, daily range): BP systolic 116–130; BP diastolic 73–78; PULSE 90–108; RESP 16–40; TEMP 36.1–37.2; O2SAT 86–97
[2020-07-05] MEDS: guaiFENesin DM 100/10/5 ML 5 ML SYRUP PO ×2 (01:32→20:58)
[2020-07-05] MEDS: 0.9 % Sodium Chloride Flush 3 ML SYRINGE IVFLUSH ×3 (01:32→16:48)
[2020-07-05] MEDS: Albuterol Sulfate 90 MCG 8 GM INHALER 2 PUFF INHALE ×2 (01:34→05:44)
[2020-07-05] MEDS: HYDROcodone/Homat 5/1.5/5 ML 5 ML SYRUP PO ×2 (05:31→11:21)
--- NOTE | 2020-07-05 07:43 | PC.NURSE ---
Assumed care at 1900. About 2100, patient tripoding, short of breath, accessory muscle use, frequent cough, grunting, labored breathing. Patient very anxious and difficult to help regain control of his breathing. On 4.5 lpm spo2 was 90%; rr was 36-37, tachycardia 110's, T was 101.1; discussed with md, new orders for ventolin inhaler prn q2hrs and hydrocodone cough syrup prn, these were administered and patient was proned to very good effect, with hr down to 70's-80's, T within normal limits, and spo2 was 95-100% briefly. Patient had two more dyspnea episodes like this overnight, particularly around being out of bed to use the urinal, and this was treated with similar prn ventolin, prn cough medicine, and proning. Patient needs further education about proning and about inhaler use. FiO2 requirements were climbing overnight, from 4.5 lpm to 6lpm and then to NRB 100% this morning per MD. Lung sounds were dim throughout, patient did have audible wheezing early on, which has improved. Patient also reported a hx of sleep apnea, but that he had never used a CPAP machine, md aware. RT was updated regarding this patient and they had suggested possible hi flow if he continues to decline. Patient's had been updated at the start of the evening.
[2020-07-05] MEDS: Enoxaparin Sodium 40 MG/0.4 ML SYRINGE SUBCUT (10:53)
[2020-07-05] MEDS: dexAMETHasone sod phosphate 4 MG/ML VIAL 6 MG IVPUSH (10:53)
--- NOTE | 2020-07-05 11:05 | HO.PM.IMPN ---
Subjective Subjective Date of Service: 07/05/20 Interval History: Seen in follow-up for acute hypoxic respiratory failure due to COVID infection. Still having difficulty breathing and coughing a lot. Still hypoxic, cough. Getting relief with proning position Review of Systems Gen: no fever since yesterd Resp: + sob, + cough CV: no chest, no العلي, no leg edema GI: No n/v, no abd pain Neuro: No confusion Physical Exam Vital Signs: Vital Signs: Last Vital Signs Temp 98.2 F 07/05/20 03:46 Pulse 98 07/05/20 05:56 Resp 31 H 07/05/20 05:56 BP 130/78 07/05/20 03:46 Pulse Ox 97 07/05/20 05:56 Body Mass Index 34.4 General: AO X 3, no acute distress Resp: in prone positio, mild respiratory difficulty CVS: S1,S2,RRR GI: NT, no distention Skin: No rash Neuro: motor grossly intact Psych: appropriate affect Objective Data Current Medications Generic Name Dose Route Start Last Admin Trade Name Freq PRN Reason Stop Dose Admin Acetaminophen 650 mg 07/03/20 21:05 07/04/20 20:42 Acetaminophen 325 Mg Tablet PO 650 mg Q6H PRN Administration Pain, Mild (Pain Scale 1-3) Albuterol Sulfate 2 puff 07/05/20 00:25 07/05/20 05:44 Albuterol Sulfate 90 Mcg 8 Gm Inhaler INHALE 2 puff Q2H PRN Administration Shortness of Breath/Wheezing Dexamethasone Sodium Phosphate 6 mg 07/04/20 09:00 07/05/20 10:53 Dexamethasone Sod Phosphate 4 Mg/Ml Vial IVPUSH 6 mg DAILY ASCENCION Administration Enoxaparin Sodium 40 mg 07/04/20 11:00 07/05/20 10:53 Enoxaparin Sodium 40 Mg/0.4 Ml Syringe SUBCUT 40 mg Q24H ASCENCION Administration Guaifenesin/Dextromethorphan 5 ml 07/03/20 22:05 07/05/20 01:32 Guaifenesin Dm 100/10/5 Ml 5 Ml Syrup PO 5 ml Q6H PRN Administration cough Hydrocodone Bit/Homatropine Methylb 5 ml 07/04/20 20:32 07/05/20 05:31 Hydrocodone/Homat 5/1.5/5 Ml 5 Ml Syrup PO 5 ml Q6H PRN Administration cough Ondansetron HCl 4 mg 07/03/20 21:05 Ondansetron Hcl 4 Mg/2 Ml Vial IVPUSH Q8H PRN Nausea and Vomiting Pharmacy Consult 1 each 07/03/20 17:48 Consult Rx Perform Med Rec MISCELLANE ONCE PRN Consult order Sodium Chloride 3 ml 07/04/20 00:00 07/05/20 08:12 0.9 % Sodium Chloride Flush 3 Ml Syringe IVFLUSH 3 ml QSHIFT ASCENCION Administration Labs CBC & Chem 7: 07/04/20 06:05 07/04/20 06:05 Microbiology Microbiology Results: Microbiology 07/03/20 17:50 Blood - Venous Blood Culture - Preliminary No growth after 24 hours. 07/03/20 17:17 Blood - Venous Blood Culture - Preliminary No growth after 24 hours. Assessment and Plan (1) COVID-19: Status: Acute (2) Hypoxia: Status: Acute Assessment and Plan: 65 year old man admitted with acute respiratory failure secondary to Covid 19. Acute hypoxic respiratory failure secondary to covid 19. Covid pneumonia -O2 to maintain saturation 90% or greater. -Decadron for 10 days, D2/10 -empiric doxycycline and ceftriaxone in the event days severe underlying arterial infection. ID is not recommended antibiotics or Remdesevir at this time. Will focus on supportive care including proning. Continue Pronining Obesity. BMI 34.4. Discussed importance of weight loss. DVT prophylaxis with Lovenox. Full code
--- NOTE | 2020-07-05 18:15 | PC.NURSE ---
Patient remains in ISO unit on tele. Patient slept most of the day with little appetite. Pt self proning and chest PT done by this nurse. Vitals remain stable but unable to wean off nonrebreather.
[2020-07-06] VITALS (20 sets, daily range): BP systolic 122–150; BP diastolic 61–92; PULSE 103–121; RESP 20–48; TEMP 36–38.7; O2SAT 81–100
--- NOTE | 2020-07-06 | XR_ITS ---
EXAMINATION: XR CHEST CLINICAL INFORMATION: Acute respiratory failure COMPARISON: None TECHNIQUE: Portable upright AP view of the chest was obtained. FINDINGS: There are streaky opacities right perihilar and right infrahilar region and scattered opacities left mid and lower zone. There are bronchograms left retrocardiac region. Findings may suggest multifocal pneumonia, possibly atypical/viral. The heart is within normal size. The vascularity is normal. There is no overt effusion. The hilar and mediastinal contours and bony structures are unremarkable. XR/XR chest 1V IMPRESSION: Bilateral streaky and groundglass opacities with air bronchograms left retrocardiac region. Findings suggest multifocal pneumonia, possibly atypical/viral.
[2020-07-06] MEDS: 0.9 % Sodium Chloride Flush 3 ML SYRINGE IVFLUSH ×3 (00:15→16:32)
[2020-07-06] MEDS: HYDROcodone/Homat 5/1.5/5 ML 5 ML SYRUP PO ×3 (00:38→13:55)
[2020-07-06] MEDS: Albuterol Sulfate 90 MCG 8 GM INHALER 2 PUFF INHALE (02:59)
[2020-07-06] MEDS: Morphine Sulfate 2 MG/ML CARTRIDGE IVPUSH ×2 (03:24→03:39)
[2020-07-06] MEDS: guaiFENesin DM 100/10/5 ML 5 ML SYRUP PO ×2 (03:25→11:17)
--- NOTE | 2020-07-06 03:46 | PC.NURSE ---
Patient sitting on side of bed stating he is unable to prone or sit with HOB up at this time d/t coughing/choking . Patient previously given cough medication with minimal effect. On assessment , this patient appears to have increased work of breathing on 100% non rebreather, O2 sats 89%, using accessory muscles, RR 28, HR 105. Respiratory called to see patient, prn inhaler administered. Patient placed on high flow oxygen in addition to 100% non rebreather, O2 sats 88-89%. Dr. Barry notified, and came to unit to assess patient. Morphine 2 mg IV ordered / administered. O2 sats 91-93 % at present, will continue to monitor.
[2020-07-06] MEDS: dexAMETHasone sod phosphate 4 MG/ML VIAL 6 MG IVPUSH (07:46)
--- NOTE | 2020-07-06 08:20 | HO.PM.IMPN ---
Subjective Subjective Date of Service: 07/06/20 Interval History: Seen in follow-up for acute hypoxic respiratory failure due to COVID infection. Patient had hard time breathing overnight and is max on non-rebreather and high flow O2. Variable respiratory rate 20s to 40 and O2 sat has been as low as 85. ICU consulted Review of Systems Gen: no fever Resp: + sob, + cough CV: no chest, no العلي, no leg edema GI: No n/v, no abd pain Neuro: No confusion Physical Exam Vital Signs: Vital Signs: Last Vital Signs Temp 99.7 F 07/06/20 08:00 Pulse 113 H 07/06/20 08:00 Resp 33 H 07/06/20 08:00 BP 138/82 07/06/20 08:00 Pulse Ox 92 07/06/20 08:00 Body Mass Index 34.4 General: AO X 3, in moderate resp distress, but able to helen in full sentences Resp: diminished bilaterlly CVS: S1,S2,RRR,tachy GI: +BS, NT, no distention Skin: No rash Neuro: motor grossly intact Psych: appropriate affect Objective Data Current Medications Generic Name Dose Route Start Last Admin Trade Name Freq PRN Reason Stop Dose Admin Acetaminophen 650 mg 07/03/20 21:05 07/04/20 20:42 Acetaminophen 325 Mg Tablet PO 650 mg Q6H PRN Administration Pain, Mild (Pain Scale 1-3) Albuterol Sulfate 2 puff 07/05/20 00:25 07/06/20 02:59 Albuterol Sulfate 90 Mcg 8 Gm Inhaler INHALE 2 puff Q2H PRN Administration Shortness of Breath/Wheezing Alprazolam 0.125 mg 07/06/20 03:10 Alprazolam 0.25 Mg Tablet PO BID PRN anxiety/restlessness Dexamethasone Sodium Phosphate 6 mg 07/04/20 09:00 07/06/20 07:46 Dexamethasone Sod Phosphate 4 Mg/Ml Vial IVPUSH 6 mg DAILY ASCENCION Administration Enoxaparin Sodium 40 mg 07/04/20 11:00 07/05/20 10:53 Enoxaparin Sodium 40 Mg/0.4 Ml Syringe SUBCUT 40 mg Q24H ASCENCION Administration Guaifenesin/Dextromethorphan 5 ml 07/03/20 22:05 07/06/20 03:25 Guaifenesin Dm 100/10/5 Ml 5 Ml Syrup PO 5 ml Q6H PRN Administration cough Hydrocodone Bit/Homatropine Methylb 5 ml 07/04/20 20:32 07/06/20 06:36 Hydrocodone/Homat 5/1.5/5 Ml 5 Ml Syrup PO 5 ml Q6H PRN Administration cough Ondansetron HCl 4 mg 07/03/20 21:05 Ondansetron Hcl 4 Mg/2 Ml Vial IVPUSH Q8H PRN Nausea and Vomiting Pharmacy Consult 1 each 07/03/20 17:48 Consult Rx Perform Med Rec MISCELLANE ONCE PRN Consult order Sodium Chloride 3 ml 07/04/20 00:00 07/06/20 07:46 0.9 % Sodium Chloride Flush 3 Ml Syringe IVFLUSH 3 ml QSHIFT ASCENCION Administration Labs CBC & Chem 7: 07/04/20 06:05 07/04/20 06:05 Microbiology Microbiology Results: Microbiology 07/03/20 17:50 Blood - Venous Blood Culture - Preliminary No growth after 48 hours. 07/03/20 17:17 Blood - Venous Blood Culture - Preliminary No growth after 48 hours. Assessment and Plan (1) COVID-19: Status: Acute (2) Hypoxia: Status: Acute Assessment and Plan: 65 year old man admitted with acute respiratory failure secondary to Covid 19. Acute hypoxic respiratory failure secondary to covid 19 Covid pneumonia -clinically worse today -O2 to maintain saturation 90% or greater. -Decadron for 10 days, [id number] -empiric doxycycline and ceftriaxone in the event days severe underlying arterial infection. ID is not recommended antibiotics or Remdesevir at this time. Will focus on supportive care including proning. Continue Pronining -I discuss use of plasam with patient and he is in favor of this -Pulmonology/ICU consult -Check routine labs and prognostic labs Obesity. BMI 34.4. Discussed importance of weight loss. DVT prophylaxis with Lovenox. Full code
[2020-07-06 09:21] LABS: ABG PCO2 39 mmhg (32-45); PO2 ABG 59 mmhg (83-108); Pt Ventilation O2% 100%; pH ABG 7.45 (7.35-7.45)
[2020-07-06 09:22] LABS: Blood Gas Serial # 5414; HCO3 ABG 26 mmol/l (22-26); Oxygen Saturation ABG 91.1 %
[2020-07-06 09:47] LABS: PLT CLUMP 1; Red Cell Distribution Width 13.2 % (11.0-16.0)
[2020-07-06 09:48] LABS: Hematocrit 43.4 % (42-52); Hemoglobin 14.4 g/dl (14.0-18.0); Mean Corpuscular HGB Conc 33.2 g/dl (31.0-36.0); Mean Corpuscular Hemoglobin 30.3 pg (27.0-33.0); Mean Corpuscular Volume 91.2 fL (80-98); Mean Platelet Volume 9.5 fL (9.4-12.4); Platelet Count 114 X10*3/uL (160-400); Red Blood Count 4.76 X10*6/uL (4.60-5.80); White Blood Count 4.9 X10*3/uL (4.8-10.8)
[2020-07-06 10:01] LABS: D Dimer 300 NG/ML
[2020-07-06 10:19] LABS: Anion Gap 15 (12-20); Blood Urea Nitrogen 23 mg/dL (9-16); C Reactive Protein 11.47 mg/dL (< or = 0.50); Calcium 8.5 mg/dL (8.4-10.2); Carbon Dioxide 27 mmol/L (22-29); Chloride 103 mmol/L (96-108); Creatinine Clr Calc Pharmacy 108.4; Estimated Glomerular Filt Rate > 60; Glucose Random 150 mg/dL (60-115); Lactate Dehydrogenase 314 U/L (118-273); Potassium 3.9 mmol/l (3.3-5.1); Sodium 141 mmol/L (135-145)
[2020-07-06] MEDS: Enoxaparin Sodium 40 MG/0.4 ML SYRINGE SUBCUT (11:17)
--- NOTE | 2020-07-06 12:48 | P.CONCC_ITS ---
History of Present Illness Data of Consult Service Date: 07/06/20 [facility] Primary Care Provider: Chaz Bearden MD HPI Reason for consult: Level of care 65-year-old gentleman with now on underlying medical history admitted on 07/03/2020 with acute hypoxic respiratory failure secondary to COVID-19 with symptoms for approximately 5 days prior. Patient has been treated with dexamethasone and required high-level of supplemental FiO2, now maintain his O2 saturation around 90% on high-flow nasal cannula and non-rebreather. Review of Systems Constitutional: Constitutional: Reports malaise and Reports weakness Eyes: Eyes: Denies change in vision and Denies loss of vision Cardiovascular: Cardiovascular: Denies chest pain, Reports dyspnea and Reports dyspnea on exertion Respiratory: Respiratory: Reports dyspnea and Reports dyspnea on exertion Gastrointestinal: Gastrointestinal: Denies constipation and Denies diarrhea Genitourinary: Genitourinary: Denies urinary incontinence and Denies urinary urgency Integumentary/Breasts: Skin/Breast: Denies rash Neurologic: Denies focal weakness, Denies loss of vision and Reports weakness Endocrine: Endocrine: Denies cold intolerance and Denies heat intolerance Hematologic/Lymphatic: Hematologic/Lymphatic: Denies easy bleeding and Denies easy bruising PMFSH Past Medical History Medical History No known health problems Family History Family history: reviewed and not pertinent Surgical History Surgical History H/O knee surgery Social History Social History Household Members: Spouse Housing: House Do you presently have visiting nurse or other home services: No Alcohol intake: current Alcohol intake frequency: a few times a month Alcohol type: beer Smoking Status: Former smoker Use of substances other than those prescribed or required for medical reasons: No Currently Displaying Signs/Symptoms of Drug Intoxication Withdrawal: No Have you been hit, kicked, punched, or otherwise hurt by someone within the past year? If so, by whom?: No Do you feel safe in your current relationship?: Yes Is there a partner from a previous relationship who is making you feel unsafe now?: No Are you made to feel afraid or neglected: No Advance Directives: No Advance Directives Information Provided: Yes Do you have thoughts of harming others: None Do you have a plan to hurt others: No Plan Recently lost weight without trying: No service: No Meds Allergies Allergy/AdvReac Type Severity Reaction Status Date / Time No Known Allergies Allergy Verified 07/03/20 17:13 Home Medications Medication Instructions Recorded Confirmed Type No Known Home Meds 07/03/20 07/03/20 History Physical Exam Vital Signs: Vital Signs: Last Vital Signs Temp 98.9 F 07/06/20 11:40 Pulse 114 H 07/06/20 11:40 Resp 22 H 07/06/20 12:07 BP 141/80 H 07/06/20 11:40 Pulse Ox 85 L 07/06/20 11:40 Body Mass Index 34.4 Const: General: no acute distress, alert, awake and other (Tired) Eyes: Sclerae: sclerae normal EOM: EOMs intact bilaterally Neck: Neck: Yes no lymphadenopathy, Yes trachea midline and Yes supple Resp: Effort & Inspection: normal respiratory effort and no respiratory distress Auscultation: crackles (Diffuse bilateral) Cardio: Rate: tachycardic Rhythm: regular rhythm Heart sounds: no gallops, no murmurs and no rubs GI: Palpation (GI): Soft to palpation and Other GI palpation findings present ( Nontender) Auscultation: normal bowel sounds Extrem: General: No clubbing, No cyanosis and Yes edema (1+ bilateral) Results Labs CBC & Chem 7: 07/06/20 09:26 07/06/20 09:26 Labs: Short CBC 07/06/20 Range/Units 09:26 WBC 4.9 (4.8-10.8) X10*3/uL Hgb 14.4 (14.0-18.0) g/dl Hct 43.4 (42-52) % Plt Count 114 L D (160-400) X10*3/uL BMP 07/06/20 09:26 Sodium 141 Potassium 3.9 Chloride 103 Carbon Dioxide 27 BUN 23 H Creatinine 0.85 Calcium 8.5 Microbiology Microbiology Results: Microbiology 07/03/20 17:50 Blood - Venous Blood Culture - Preliminary No growth after 48 hours. 07/03/20 17:17 Blood - Venous Blood Culture - Preliminary No growth after 48 hours. Assessment and Plan (1) Acute respiratory failure with hypoxia: Status: Acute Impression: COVID-19 related ARDS resulting in acute hypoxic respiratory failure. Now maintains O2 saturation around 90% on high-flow nasal cannula and non-rebreather. Recommendations: Will administer 1 dose of IV Lasix 20 mg to keep euvolemic. Continue supplemental oxygen where high-flow nasal cannula and non-rebreather. At this time patient does not require intensive care unit level of care. Please notify for re-evaluation if his oxygenation start to worsen. (2) COVID-19: Status: Acute
[2020-07-06] MEDS: Furosemide 20 MG/2 ML VIAL IVPUSH (13:55)
--- NOTE | 2020-07-06 14:34 | PC.NURSE ---
Patient remains on nonrebreather and highflo. Maintained sats 84-91. Dr. Meneses and Dr. Lovett came in to see the patient. ABG and CXR obtained. Pt very weak and required assistance eating as the nonrebreather has to come on and off. Will continue to monitor.
[2020-07-06 16:52] LABS: ABG PCO2 38 mmhg (32-45); PO2 ABG 54 mmhg (83-108); Pt Ventilation O2% 100%; pH ABG 7.48 (7.35-7.45)
[2020-07-06 16:53] LABS: Base Excess ABG 4.1; Blood Gas Serial # 5396; HCO3 ABG 28 mmol/l (22-26); Oxygen Saturation ABG 89.1 %
--- NOTE | 2020-07-06 17:49 | PM.CCN ---
Critical Care Event Note Summary Code activated: No Narrative: Patient with slowly worsening oxygenation services the, now saturating 93% on high-flow nasal cannula/non-rebreather. Will start on CPAP support and transfer to intensive care. Critical Care Time (minutes): 0
--- NOTE | 2020-07-06 17:52 | PC.NURSE ---
Assumed care @ 15:00; Pt a/o x4.
--- NOTE | 2020-07-06 17:57 | PC.NURSE ---
Assumed care @ 15:00; Pt A/O x4, pt sats low, 83-85% on High flow/NRB since 16:00, RR 30's, Sinus-Tach 110's, pt lungs dim throughout, pt encouraged to deep breath/cough, pt states he feels more short of breath. Dr. Waite updated, STAT ABGs ordered and completed. Pt do to be transferred to ICU for BIPAP treatment. Pt aware of plan of care, called and updated on transfer.
--- NOTE | 2020-07-06 19:35 | PC.NURSE ---
Patient transferred from Isolation unit at 1800. Alert and oriented. Placed on CPAP-15, 80% fio2; spo2 is 96-100% currently, frequent dry cough; tachypnea was in the low 30's.. 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 Patient is on telemetry, had hr 106, is now 97, sinus rhythm. sbp in 130's. valentine placed per MD, and tolerated well. Skin is intact. last bm 2 days ago.
--- NOTE | 2020-07-06 20:00 | P.EN_ITS ---
Event Note Date of Service: 07/06/20 Event Note: Patient continue to decompensate with progressive hypoxia and max on NRB and High flow. Repeat ABG was was worse. Patient was reevaluated by the strategic marketing leader Dr. Lovett and will be admitted to the ICU.
[2020-07-07] VITALS (30 sets, daily range): BP systolic 116–148; BP diastolic 67–89; PULSE 95–116; RESP 15–37; TEMP 37.9–39; O2SAT 86–98
[2020-07-07] MEDS: 0.9 % Sodium Chloride Flush 3 ML SYRINGE IVFLUSH ×4 (00:40→23:21)
[2020-07-07 05:58] LABS: Monocytes Absolute Auto 0.3 X10*3/uL (0.1-1.2); PLT CLUMP 1; Red Cell Distribution Width 13.2 % (11.0-16.0); SCAN SMEAR FLAG 1
[2020-07-07 06:00] LABS: Hematocrit 43.5 % (42-52); Hemoglobin 14.4 g/dl (14.0-18.0); Imm Gran Abs Auto 0.06 X10*3/uL (0.00-0.03); Imm Gran Pct Auto 1.2 % (0.0-0.4); Lymphocytes Absolute Auto 0.7 X10*3/uL (1.2-4.9); Lymphocytes Percent Auto 14.6 % (20-40); Mean Corpuscular HGB Conc 33.1 g/dl (31.0-36.0); Mean Corpuscular Hemoglobin 30.3 pg (27.0-33.0); Mean Corpuscular Volume 91.6 fL (80-98); Mean Platelet Volume 9.6 fL (9.4-12.4); Monocytes Percent Auto 5.6 % (2-11); Neutrophils Absolute Auto 3.9 X10*3/uL (2.0-8.3); Neutrophils Percent Auto 78.6 % (45-73); Platelet Count 132 X10*3/uL (160-400); Red Blood Count 4.75 X10*6/uL (4.60-5.80)
[2020-07-07 06:03] LABS: MANUAL DIFF FLAG NO
[2020-07-07 06:16] LABS: Base Excess VBG 5.4 mmol/L; HCO3 VBG 31 mmol/L; Oxygen Saturation VBG 67.2 %; PCO2 VBG 48 mmhg; PO2 VBG 31 mmhg; pH VBG 7.42 (7.32-7.43)
[2020-07-07 06:27] LABS: Alanine Aminotransferase 54 U/L (0-40); Albumin Level 3.9 g/dL (3.5-5.0); Alkaline Phosphatase 51 U/L (39-117); Anion Gap 16 (12-20); Aspartate Amino Transferase 57 U/L (5-37); Bilirubin Total 1.5 mg/dL (0.0-1.0); Blood Urea Nitrogen 24 mg/dL (9-16); Calcium 8.5 mg/dL (8.4-10.2); Carbon Dioxide 31 mmol/L (22-29); Chloride 100 mmol/L (96-108); Creatinine Clr Calc Pharmacy 102.4; Estimated Glomerular Filt Rate > 60; Glucose Random 128 mg/dL (60-115); Magnesium 2.4 mg/dL (1.6-2.6); Phosphorus 3.4 mg/dL (2.7-4.5); Potassium 4.7 mmol/l (3.3-5.1); Sodium 142 mmol/L (135-145); Total Protein 6.9 g/dL (6.5-8.0)
[2020-07-07] MEDS: dexAMETHasone sod phosphate 4 MG/ML VIAL 6 MG IVPUSH (10:50)
[2020-07-07] MEDS: Enoxaparin Sodium 40 MG/0.4 ML SYRINGE SUBCUT (10:50)
--- NOTE | 2020-07-07 13:17 | P.PNCC_ITS ---
Subjective Subjective Date of Service: 07/07/20 Interval History: 65-year-old gentleman with no underlying medical history admitted on 07/03/2020 with acute hypoxic respiratory failure secondary to COVID-19 with symptoms for approximately 5 days prior. Patient has been treated with dexamethasone and required high-level of supplemental FiO2. His FiO2 requirements continue to escalate on 07/06/2020 requiring initiation of CPAP support and transfer to intensive care unit. No events overnight. Physical Exam Vital Signs: Vital Signs: Last Vital Signs Temp 100.2 F 07/07/20 13:00 Pulse 103 H 07/07/20 13:00 Resp 22 H 07/07/20 13:00 BP 127/77 07/07/20 13:00 Pulse Ox 91 L 07/07/20 13:00 Body Mass Index 34.4 Const: General: no acute distress, alert and awake Eyes: Sclerae: sclerae normal EOM: EOMs intact bilaterally Neck: Neck: Yes no lymphadenopathy, Yes trachea midline and Yes supple Resp: Effort & Inspection: normal respiratory effort and no respiratory distress Auscultation: crackles (Diffuse bilateral) Cardio: Rate: tachycardic Rhythm: regular rhythm Heart sounds: no gal lops, no murmurs and no rubs GI: Palpation (GI): Soft to palpation and Other GI palpation findings present ( Nontender) Auscultation: normal bowel sounds Extrem: General: No clubbing, No cyanosis and Yes edema (Trace bilateral) Objective Data Labs CBC & Chem 7: 07/07/20 05:38 07/07/20 05:38 Labs: Laboratory Results - last 24 hr 07/06/20 07/07/20 07/07/20 16:32 05:38 05:38 WBC 5.0 RBC 4.75 Hgb 14.4 Hct 43.5 MCV 91.6 MCH 30.3 MCHC 33.1 RDW 13.2 Plt Count 132 L MPV 9.6 Immature Gran % (Auto) 1.2 H Neut % (Auto) 78.6 H Lymph % (Auto) 14.6 L [place] % (Auto) 5.6 Eos % (Auto) 0.0 Baso % (Auto) 0.0 Lymph # (Auto) 0.7 L [place] # (Auto) 0.3 Eos # (Auto) 0.0 Baso # (Auto) 0.0 Abs Immat Gran (auto) 0.06 H Absolute Neuts (auto) 3.9 Absolute Nucleated RBC 0.000 Nucleated RBC % (auto) 0.0 ABG pH 7.48 H ABG pCO2 38 ABG pO2 54 L ABG HCO3 28 H ABG O2 Saturation 89.1 ABG Base Excess 4.1 VBG pH VBG pCO2 VBG pO2 VBG HCO3 VBG O2 Saturation VBG Base Excess Oxygen Given 100% Sodium 142 Potassium 4.7 D Chloride 100 Carbon Dioxide 31 H Anion Gap 16 BUN 24 H Creatinine 0.90 Estim Creat Clear Calc 102.4 Estimated GFR > 60 Random Glucose 128 H Calcium 8.5 Phosphorus 3.4 Magnesium 2.4 Total Bilirubin 1.5 H AST 57 H ALT 54 H Alkaline Phosphatase 51 Total Protein 6.9 Albumin 3.9 07/07/20 05:38 WBC RBC Hgb Hct MCV MCH MCHC RDW Plt Count MPV Immature Gran % (Auto) Neut % (Auto) Lymph % (Auto) [place] % (Auto) Eos % (Auto) Baso % (Auto) Lymph # (Auto) [place] # (Auto) Eos # (Auto) Baso # (Auto) Abs Immat Gran (auto) Absolute Neuts (auto) Absolute Nucleated RBC Nucleated RBC % (auto) ABG pH ABG pCO2 ABG pO2 ABG HCO3 ABG O2 Saturation ABG Base Excess VBG pH 7.42 VBG pCO2 48 VBG pO2 31 VBG HCO3 31 VBG O2 Saturation 67.2 VBG Base Excess 5.4 Oxygen Given Sodium Potassium Chloride Carbon Dioxide Anion Gap BUN Creatinine Estim Creat Clear Calc Estimated GFR Random Glucose Calcium Phosphorus Magnesium Total Bilirubin AST ALT Alkaline Phosphatase Total Protein Albumin Microbiology Microbiology Results: Microbiology 07/03/20 17:50 Blood - Venous Blood Culture - Preliminary No growth after 48 hours. 07/03/20 17:17 Blood - Venous Blood Culture - Preliminary No growth after 48 hours. Progress Note: A&P Assessment and plan (1) Acute respiratory failure with hypoxia: Status: Acute Assessment and Plan: Assessment: 65-year-old gentleman with acute hypoxic respiratory failure secondary to COVID-19 related ARDS requiring CPAP support. Plan: Neuro: No acute issues. Cardiac: Peripheral edema, will obtain 2D echocardiogram for evaluation underlying cardiac function. Pulmonary: Acute hypoxic respiratory failure secondary to COVID-19 ARDS requiring CPAP support. Continue to titrate off as tolerated. Continue dexamethasone for total of 10 days. Renal: No acute issues. Endo: No acute issues. GI: No acute issues. ID: COVID 19 Heme/Onc: No acute issues. Psych: No acute issues. Miscellaneous: No acute issues. Prophylaxis: Heparin Diet: Regular Critical care time spent: 45 minutes (2) Acute respiratory distress syndrome (ARDS) due to COVID-19 virus: Status: Acute Time Spent With Patient Total time spent with greater than 50% in coordination of care (as documented) at patient's floor/unit and/or counseling patient:: 0 Critical Care Time 45
[2020-07-07] MEDS: guaiFENesin 200 MG/10 ML 10 ML LIQUID PO (21:22)
[2020-07-08] VITALS (31 sets, daily range): BP systolic 108–167; BP diastolic 60–94; PULSE 88–103; RESP 18–923; TEMP 37.5–37.9; O2SAT 88–100
[2020-07-08 05:16] LABS: Basophils Percent Auto 0.2 % (0-2); Hematocrit 42.3 % (42-52); Hemoglobin 13.9 g/dl (14.0-18.0); Imm Gran Abs Auto 0.04 X10*3/uL (0.00-0.03); Imm Gran Pct Auto 0.8 % (0.0-0.4); Lymphocytes Absolute Auto 0.6 X10*3/uL (1.2-4.9); Lymphocytes Percent Auto 12.8 % (20-40); Mean Corpuscular HGB Conc 32.9 g/dl (31.0-36.0); Mean Corpuscular Hemoglobin 30.4 pg (27.0-33.0); Mean Corpuscular Volume 92.6 fL (80-98); Mean Platelet Volume 9.6 fL (9.4-12.4); Monocytes Absolute Auto 0.3 X10*3/uL (0.1-1.2); Monocytes Percent Auto 5.4 % (2-11); Neutrophils Percent Auto 80.8 % (45-73); Platelet Count 146 X10*3/uL (160-400); Red Blood Count 4.57 X10*6/uL (4.60-5.80); Red Cell Distribution Width 13.2 % (11.0-16.0); SCAN SMEAR FLAG 1
[2020-07-08 05:17] LABS: MANUAL DIFF FLAG NO
[2020-07-08 05:19] LABS: Base Excess VBG 8.2 mmol/L; HCO3 VBG 35 mmol/L; Oxygen Saturation VBG 41.3 %; PCO2 VBG 56 mmhg; PO2 VBG 23 mmhg; pH VBG 7.41 (7.32-7.43)
[2020-07-08 05:43] LABS: Albumin Level 3.6 g/dL (3.5-5.0); Anion Gap 15 (12-20); Blood Urea Nitrogen 27 mg/dL (9-16); Calcium 8.7 mg/dL (8.4-10.2); Carbon Dioxide 32 mmol/L (22-29); Chloride 102 mmol/L (96-108); Estimated Glomerular Filt Rate > 60; Glucose Random 144 mg/dL (60-115); Magnesium 2.4 mg/dL (1.6-2.6); Phosphorus 3.4 mg/dL (2.7-4.5); Potassium 4.2 mmol/l (3.3-5.1); Sodium 145 mmol/L (135-145)
[2020-07-08] MEDS: Enoxaparin Sodium 40 MG/0.4 ML SYRINGE SUBCUT (08:53)
[2020-07-08] MEDS: dexAMETHasone sod phosphate 4 MG/ML VIAL 6 MG IVPUSH (08:54)
[2020-07-08] MEDS: 0.9 % Sodium Chloride Flush 3 ML SYRINGE IVFLUSH ×2 (08:54→14:55)
[2020-07-08 09:53] LABS: SARS COV2 IgG Negative (Negative)
--- NOTE | 2020-07-08 11:16 | PM.CCPN ---
Subjective Subjective Date of Service: 07/08/20 Interval History: ICU day 3 for acute hypoxic respiratory failure secondary to COVID-19 ARDS. 65-year-old gentleman with no underlying medical history admitted on 07/03/2020 with acute hypoxic respiratory failure secondary to COVID-19 with symptoms for approximately 5 days prior. Patient has been treated with dexamethasone and required high-level of supplemental FiO2. His FiO2 requirements continued to escalate on 07/06/2020 requiring initiation of CPAP support and transfer to intensive care unit. No events overnight. Physical Exam Vital Signs: Vital Signs: Last Vital Signs Temp 99.5 F 07/08/20 10:00 Pulse 101 H 07/08/20 10:00 Resp 18 07/08/20 10:00 BP 123/66 07/08/20 10:00 Pulse Ox 91 L 07/08/20 10:00 Body Mass Index 34.4 Const: General: no acute distress, alert and awake Eyes: Sclerae: sclerae normal EOM: EOMs intact bilaterally Neck: Neck: Yes no lymphadenopathy, Yes trachea midline and Yes supple Resp: Effort & Inspection: normal respiratory effort and no respiratory distress (On CPAP or high-flow) Auscultation: crackles (Diffuse bilateral) Cardio: Rate: tachycardic Rhythm: regular rhythm Heart sounds: no gallops, no murmurs and no rubs GI: Palpation (GI): Soft to palpation and Other GI palpation findings present ( Nontender) Auscultation: normal bowel sounds Extrem: General: No clubbing, No cyanosis and Yes edema (Trace bilateral) Objective Data Labs CBC & Chem 7: 07/08/20 05:02 07/08/20 05:02 Labs: Laboratory Results - last 24 hr 07/06/20 07/08/20 07/08/20 14:10 05:02 05:02 WBC 5.0 RBC 4.57 L Hgb 13.9 L Hct 42.3 MCV 92.6 MCH 30.4 MCHC 32.9 RDW 13.2 Plt Count 146 L MPV 9.6 Immature Gran % (Auto) 0.8 H Neut % (Auto) 80.8 H Lymph % (Auto) 12.8 L [place] % (Auto) 5.4 Eos % (Auto) 0.0 Baso % (Auto) 0.2 Lymph # (Auto) 0.6 L [place] # (Auto) 0.3 Eos # (Auto) 0.0 Baso # (Auto) 0.0 Abs Immat Gran (auto) 0.04 H Absolute Neuts (auto) 4.0 Absolute Nucleated RBC 0.000 Nucleated RBC % (auto) 0.0 VBG pH VBG pCO2 VBG pO2 VBG HCO3 VBG O2 Saturation VBG Base Excess Sodium 145 Potassium 4.2 Chloride 102 Carbon Dioxide 32 H Anion Gap 15 BUN 27 H Creatinine 0.83 Estim Creat Clear Calc 111.0 Estimated GFR > 60 Random Glucose 144 H Calcium 8.7 Phosphorus 3.4 Magnesium 2.4 Albumin 3.6 SARS-CoV-2 IgG Ab Negative 07/08/20 05:02 WBC RBC Hgb Hct MCV MCH MCHC RDW Plt Count MPV Immature Gran % (Auto) Neut % (Auto) Lymph % (Auto) [place] % (Auto) Eos % (Auto) Baso % (Auto) Lymph # (Auto) [place] # (Auto) Eos # (Auto) Baso # (Auto) Abs Immat Gran (auto) Absolute Neuts (auto) Absolute Nucleated RBC Nucleated RBC % (auto) VBG pH 7.41 VBG pCO2 56 VBG pO2 23 VBG HCO3 35 VBG O2 Saturation 41.3 VBG Base Excess 8.2 Sodium Potassium Chloride Carbon Dioxide Anion Gap BUN Creatinine Estim Creat Clear Calc Estimated GFR Random Glucose Calcium Phosphorus Magnesium Albumin SARS-CoV-2 IgG Ab Microbiology Microbiology Results: Microbiology 07/03/20 17:50 Blood - Venous Blood Culture - Preliminary No growth after 48 hours. 07/03/20 17:17 Blood - Venous Blood Culture - Preliminary No growth after 48 hours. Progress Note: A&P Assessment and plan (1) Acute respiratory distress syndrome (ARDS) due to COVID-19 virus: Status: Acute Assessment and Plan: Assessment: 65-year-old gentleman with acute hypoxic respiratory failure secondary to COVID-19 related ARDS requiring CPAP support. Plan: Neuro: No acute issues. Cardiac: Peripheral edema, 2D echo is pending. Pulmonary: Acute hypoxic respiratory failure secondary to COVID-19 ARDS requiring CPAP support. Continue to titrate off as tolerated. Continue dexamethasone for total of 10 days. Renal: No acute issues. Endo: No acute issues. GI: No acute issues. ID: COVID 19 Heme/Onc: No acute issues. Psych: No acute issues. Miscellaneous: No acute issues. Prophylaxis: Heparin Diet: Regular Critical care time spent: 45 minutes (2) Acute respiratory failure with hypoxia: Status: Acute Time Spent With Patient Total time spent with greater than 50% in coordination of care (as documented) at patient's floor/unit and/or counseling patient:: 0 Critical Care Time 45
[2020-07-08] MEDS: guaiFENesin 200 MG/10 ML 10 ML LIQUID PO (18:12)
[2020-07-09] VITALS (16 sets, daily range): BP systolic 120–149; BP diastolic 64–98; PULSE 84–109; RESP 16–40; TEMP 36–37.9; O2SAT 85–97
[2020-07-09] MEDS: LORazepam 2 MG/ML VIAL 0.5 MG IVPUSH (03:17)
--- NOTE | 2020-07-09 05:06 | PC.NURSE ---
PT A&OX4. TMAX 100.2 CORE. NSR/ST 90-100s, HR UP TO 130s WITH EXERTION. SBP WNL. INITIALLY ON MAXED ON HFNC/NRB. DESATS EASILY WHEN REMOVED TO 70s. NO C/O SOB. PLACED ON CPAP 12/100% AT APPROX 0400 PER PT REQUEST AND MD ORDER. PRE-MEDICATED WITH 0.5 MG IV ATIVAN X1, PT ANXIOUS. MUNOZ IN PLACE. SKIN INTACT. TO BE TRANSFERRED TO [facility] AT THIS TIME, REPORT GIVEN TO IMC RN.
[2020-07-09] MEDS: Acetaminophen 325 MG TABLET 650 MG PO (06:03)
[2020-07-09 06:07] LABS: Hematocrit 44.9 % (42-52); Hemoglobin 14.8 g/dl (14.0-18.0); Imm Gran Abs Auto 0.04 X10*3/uL (0.00-0.03); Imm Gran Pct Auto 0.6 % (0.0-0.4); Lymphocytes Absolute Auto 0.9 X10*3/uL (1.2-4.9); Lymphocytes Percent Auto 13.5 % (20-40); MANUAL DIFF FLAG NO; Mean Corpuscular Hemoglobin 30.3 pg (27.0-33.0); Mean Platelet Volume 9.6 fL (9.4-12.4); Monocytes Absolute Auto 0.3 X10*3/uL (0.1-1.2); Monocytes Percent Auto 3.7 % (2-11); Neutrophils Absolute Auto 5.7 X10*3/uL (2.0-8.3); Neutrophils Percent Auto 82.2 % (45-73); Platelet Count 170 X10*3/uL (160-400); Red Blood Count 4.88 X10*6/uL (4.60-5.80); Red Cell Distribution Width 13.1 % (11.0-16.0)
[2020-07-09 06:14] LABS: HCO3 VBG 31 mmol/L; Oxygen Saturation VBG 27.8 %; PCO2 VBG 42 mmhg; PO2 VBG 17 mmhg; pH VBG 7.48 (7.32-7.43)
[2020-07-09 06:29] LABS: D Dimer 502 NG/ML
[2020-07-09 06:37] LABS: Alanine Aminotransferase 71 U/L (0-40); Albumin Level 3.8 g/dL (3.5-5.0); Alkaline Phosphatase 62 U/L (39-117); Anion Gap 17 (12-20); Aspartate Amino Transferase 54 U/L (5-37); Bilirubin Total 1.7 mg/dL (0.0-1.0); Blood Urea Nitrogen 31 mg/dL (9-16); Calcium 8.9 mg/dL (8.4-10.2); Carbon Dioxide 28 mmol/L (22-29); Chloride 103 mmol/L (96-108); Creatinine Clr Calc Pharmacy 100.2; Estimated Glomerular Filt Rate > 60; Glucose Random 123 mg/dL (60-115); Magnesium 2.4 mg/dL (1.6-2.6); Phosphorus 3.9 mg/dL (2.7-4.5); Sodium 144 mmol/L (135-145)
[2020-07-09] MEDS: 0.9 % Sodium Chloride Flush 3 ML SYRINGE IVFLUSH ×3 (08:04→20:16)
[2020-07-09] MEDS: dexAMETHasone sod phosphate 4 MG/ML VIAL 6 MG IVPUSH (08:04)
[2020-07-09 08:23] LABS: Ferritin 3020 ng/mL (20-250)
--- NOTE | 2020-07-09 11:00 | CA_ITS ---
Transthoracic Echocardiogram Patient (Last, First, Middle): Mohan Gold, Gender: Male Date of : 1955 Age: 65 Procedure Date: 07/09/2020 Procedure Type: Transthoracic Echocardiogram Location: [facility] [place] Height: 177.8 cm Weight: 108.86 kg BSA: 2.26 m2 Heart Rate: bpm BP: 125 / 66 mmHg Auto Wheel Alignment Specialist: SUJATHA Referring MD: Vijay Lovett MD Planning Aide: Jose Jane MD Symptoms: dyspnea Study Quality: Fair ECG Rhythm: Sinus Conclusions: - 1. Normal LV systolic function with mild LVH with grade 1 diastolic dysfunction 2. Mild aortic regurgitation 3. Normal RV systolic pressure 4. No pericardial effusion Findings Left Ventricle Normal left ventricular size and systolic function. There is mildly increased left ventricular wall thickness. The visually estimated ejection fraction is between 60-65%. Spectral Doppler is indicative of an impaired relaxation filling pattern. E/E prime ratio is <8, consistent with normal filling pressures. Evidence suggests grade I (mild) diastolic dysfunction. Right Ventricle Normal right ventricular cavity size and systolic function. Atria The left atrium is likely dilated. There is no evidence of interatrial shunt. The right atrium is normal in size. Aortic Valve There is mild calcification of the aortic valve. There is no aortic valve stenosis. There is mild aortic valve regurgitation. Mitral Valve Normal mitral valve structure and function. There is trace mitral valve regurgitation. There is no mitral valve stenosis. Pulmonic Valve The pulmonic valve was not well visualized. Tricuspid Valve Normal tricuspid valve structure. The right ventricular systolic pressure is normal. The right ventricular systolic pressure is 33 mmHg. There is no evidence of pulmonary hypertension. Great Vessels All visible segments of the aorta are normal in size. The pulmonary artery was not well visualized. Venous The inferior vena cava is normal in size and collapses greater than 50% with inspiration. Pericardium/Pleural There is no evidence of pericardial effusion. Prior Study Comparison No prior study available for comparison. Measurements 2D Linear Measurements IVSd: 1.30 0.6-0.9/0.6-1.0 cm LVIDd: 4.78 3.9-5.3/4.2-5.9 cm LVIDd Index: 2.12 2.4-3.2/2.2-3.1 cm/m2 LVIDs: 3.09 2.0-3.6 cm LVPWd: 1.23 0.7-1.1 cm Ao Root: 3.80 2.1-3.5 cm LA Diam: 3.80 2.7-3.8/3.0-4.0 cm LAIDs Index: 1.68 1.5-2.3 cm/m2 LV Mass: 292.66 67-162/88-224 g LV Mass Index: 129.49 43-95/49-115 g/m2 LVOT Diam: 2.60 3.0+(-)1.3 cm 2D Systolic Function EF 4C: 57.30 >55% Mitral Valve E'Lateral: 11.30 E'Medial: 7.54 Aortic Valve AoV Pk [place]: 1.17 AoV Pk Grad: 5.00 AI Pk [place]: 3.98 AI [place]: 2.00 LVOT LVOT Pk [place]: 1.25 LVOT Mn [place]: 0.74 LVOT VTI: 0.21 LVOT Pk Grad: 6.00 LVOT Mn Grad: 3.00 LVOT Diam: 2.60 LVOT Area: 5.31 Diastolic Function E'Medial: 7.54 E' Laterial: 11.30 Tricuspid Valve TR Pk Davon: 2.74 TR Pk Grad: 30.00 RA Press: 3.00 RVSP: 33.00 Great Vessels Aorta Ao Root-2D: 3.80 2.0-3.7 cm Ao Asc: 3.30 2.1-3.4 cm Updated in Other Vendor System with Status of Final Jose Jane MD electronically signed on 07/09/2020 5:19:12 PM with status of Final
--- NOTE | 2020-07-09 11:24 | MHC.CM.PN ---
Patient is still requiring IV Decadron and high flow O2. Home, no services is the goal for dc and CM will continue to follow for dc planning and possible need to adjust the dc plan.
[2020-07-09] MEDS: Enoxaparin Sodium 40 MG/0.4 ML SYRINGE SUBCUT (13:44)
--- NOTE | 2020-07-09 21:47 | PC.NURSE ---
ASSESSED PATIENT AT 1900. PATIENT IS ALERT AND ORIENTED X 3. NO DISTRESS, APPEARS MUCH MORE COMFORTABLE THAN THREE DAYS AGO. PATIENT IS BREATHING EASILY ON HIGH FLOW OXYGEN SYSTEM 90% FIO2 AND 50 LPM. PATIENT IS SPEAKING IN FULL SENTENCES AND HAS NO COMPLAINTS. HIS LUNGS SOUNDS CURRENTLY ARE CLEAR IN UPPERS AND DIM AT BASES. PATIENT HEART RATE REGULAR AND WNL. PATIENT IS NOT CURRENTLY COUGHING, NO DYSPNEA. PATIENT NEUROS INTACT, PERRLA. PATIENT DOES STILL HAVE MUNOZ CATHETER, PUTTING OUT CONCENTRATED YELLOW URINE, AND THIS RN DID DISCUSS WITH HIS ONCOMING EVENING RN THAT HE FEELS HE MAY BE ABLE TO UTILIZE THE URINAL NOW AND TO CONSIDER DC OF MUNOZ. PATIENT INDICATED HE WAS OOB TO CHAIR TODAY. HE ALSO INDICATED THAT HE HAS UPDATED HIS TO HIS CURRENT STATUS. CONTINUING TO MONITOR.
[2020-07-10] VITALS (14 sets, daily range): BP systolic 119–138; BP diastolic 63–87; PULSE 88–115; RESP 18–40; TEMP 36.6–37; O2SAT 86–95
[2020-07-10] MEDS: dexAMETHasone sod phosphate 4 MG/ML VIAL 6 MG IVPUSH (07:35)
[2020-07-10] MEDS: 0.9 % Sodium Chloride Flush 3 ML SYRINGE IVFLUSH ×2 (07:35→17:28)
[2020-07-10] MEDS: Enoxaparin Sodium 40 MG/0.4 ML SYRINGE SUBCUT (11:20)
--- NOTE | 2020-07-10 14:22 | HO.PM.IMPN ---
Subjective Subjective Date of Service: 07/10/20 Interval History: Seen in follow-up for acute hypoxic respiratory failure due to COVID infection and required some ICU level but did not arise to mechanical ventilation, just CPAP. He is doing better, however remains hypoxic and on high flow oxygen--he is not struggling as he did prior to going to ICU. He's thinking he might be able to go home in a few days. Review of Systems Gen: no fever Resp: + sob, no cough CV: no chest, no العلي, no leg edema GI: No n/v, no abd pain Neuro: No confusion Physical Exam Vital Signs: Vital Signs: Last Vital Signs Temp 98.0 F 07/10/20 11:33 Pulse 106 H 07/10/20 11:33 Resp 22 H 07/10/20 11:50 BP 135/66 07/10/20 11:33 Pulse Ox 95 07/10/20 11:33 Body Mass Index 34.4 Const: General: cooperative and comfortable Resp: Effort & Inspection: normal respiratory effort and able to speak in complete sentences Cardio: Jugular venous distension: no JVD Rhythm: regular rhythm Heart sounds: S1 normal heart sound present and S2 normal heart sound present GI: Palpation (GI): Soft to palpation Percussion: Yes normal to percussion Objective Data Current Medications Generic Name Dose Route Start Last Admin Trade Name Freq PRN Reason Stop Dose Admin Acetaminophen 650 mg 07/03/20 21:05 07/09/20 06:03 Acetaminophen 325 Mg Tablet PO 650 mg Q6H PRN Administration Pain, Mild (Pain Scale 1-3) Dexamethasone Sodium Phosphate 6 mg 07/04/20 09:00 07/10/20 07:35 Dexamethasone Sod Phosphate 4 Mg/Ml Vial IVPUSH 6 mg DAILY ASCENCION Administration Enoxaparin Sodium 40 mg 07/04/20 11:00 07/10/20 11:20 Enoxaparin Sodium 40 Mg/0.4 Ml Syringe SUBCUT 40 mg Q24H ASCENCION Administration Guaifenesin 10 ml 07/07/20 20:51 07/08/20 18:12 Guaifenesin 200 Mg/10 Ml 10 Ml Liquid PO 10 ml Q6H PRN Administration Cough Ondansetron HCl 4 mg 07/03/20 21:05 Ondansetron Hcl 4 Mg/2 Ml Vial IVPUSH Q8H PRN Nausea and Vomiting Pharmacy Consult 1 each 07/03/20 17:48 Consult Rx Perform Med Rec MISCELLANE ONCE PRN Consult order Sodium Chloride 3 ml 07/04/20 00:00 07/10/20 07:35 0.9 % Sodium Chloride Flush 3 Ml Syringe IVFLUSH 3 ml QSHIFT ASCENCION Administration Labs CBC & Chem 7: 07/09/20 06:00 07/09/20 06:00 Microbiology Microbiology Results: Microbiology 07/03/20 17:50 Blood - Venous Blood Culture - Final No growth after 5 days. 07/03/20 17:17 Blood - Venous Blood Culture - Final No growth after 5 days. Assessment and Plan (1) COVID-19: Status: Acute (2) Hypoxia: Status: Acute Assessment and Plan: 65 year old man admitted with acute respiratory failure secondary to Covid 19. Acute hypoxic respiratory failure secondary to covid 19 Covid pneumonia, required CPAP in ICU for several days and is making progress -O2 to maintain saturation 90% or greater and wean as much as possible -Decadron for 10 days, D7/10 -Of Abx, he was not candidate for Remdesevir d/t late presentation -I discuss use of plasam with patient and he is in favor of this -Check routine labs and prognostic labs Obesity. BMI 34.4. Discussed importance of weight loss. DVT prophylaxis with Lovenox. Full code
[2020-07-11] VITALS (12 sets, daily range): BP systolic 122–137; BP diastolic 61–75; PULSE 103–118; RESP 18–27; TEMP 36.4–36.6; O2SAT 88–96
[2020-07-11] MEDS: Morphine Sulfate 4 MG/ML CARTRIDGE IVPUSH (00:36)
[2020-07-11] MEDS: 0.9 % Sodium Chloride Flush 3 ML SYRINGE IVFLUSH ×4 (02:12→21:25)
[2020-07-11] MEDS: dexAMETHasone sod phosphate 4 MG/ML VIAL 6 MG IVPUSH (07:41)
--- NOTE | 2020-07-11 09:53 | PM.PNPUL ---
Subjective Subjective Date of Service: 07/11/20 Principal diagnosis: COVID - ARDS Interval history: I REVIEWED THE CASE AND HOSPITAL COURSE . PT STILL REQUIRING HIGH FLOW O2 AT 60 L/MT OTHERWISE DOING BETTER . Objective Data Labs CBC & Chem 7: 07/09/20 06:00 07/09/20 06:00 Microbiology Microbiology Results: Microbiology 07/03/20 17:50 Blood - Venous Blood Culture - Final No growth after 5 days. 07/03/20 17:17 Blood - Venous Blood Culture - Final No growth after 5 days. Review of Systems Constitutional: Reports weakness Eyes: Denies loss of vision Denies focal weakness, Denies loss of vision and Reports weakness Physical Exam Vital Signs: Vital Signs: Last Vital Signs Temp 97.9 F 07/11/20 07:22 Pulse 118 H 07/11/20 07:22 Resp 24 H 07/11/20 07:26 BP 122/61 07/11/20 07:22 Pulse Ox 92 07/11/20 07:22 Body Mass Index 34.4 Assessment and Plan Assessment and plan (1) COVID-19: Problem details: COMPLETE THE COURSE OF DEXAMETHASONE 6 MG IV FOR 10 DAYS Status: Acute (2) Acute respiratory distress syndrome (ARDS) due to COVID-19 virus: Problem details: STILL REQUIRING HIGH FLOW O2 AT 60 L/MT Status: Acute (3) Acute respiratory failure with hypoxia: Problem details: CONT. HIGH FLOW O2 BY NASAL CANULA . FOLLOW THE RESP. THERAPY , PROTOCOL TO WEAN OFF THE HIGH FLOW SLOWLY . NEXT STEP WOULD BE TO REDUCE THE FLOW DOWN TO 50 L/MT . GOAL IS TO KEEP O2 SAT 90 % OR ABOVE MAY TRY VENTI MASK , OR NASAL CANULA WITH OXIMIZER , WHEN TOLERATED . Status: Acute Time Spent With Patient Time: Total time spent is greater than 50% in coordination of care (as documented) at patient's floor/unit and/or counseling patient: Time with patient: 15 - 24 minutes
--- NOTE | 2020-07-11 11:20 | MHC.CM.PN ---
Per ROUNDS discussion, Patient is not yet medically cleared for dc (IV Decadron,high flow O2/Nonrebreather (still Hypoxic). Home is the goal for dc and CM will continue to follow for dc planning and possible need to adjust the dc plan.
--- NOTE | 2020-07-11 13:23 | MHC.CLN ---
F/U VARIABLE PO INTAKE DIET RX: REGULAR-APPROPRIATE 2000 CALORIES PER DAY WILL PROMOTE SLOW WT LOSS CONTINUE TO MONITOR PO CLOSELY FOLLOWING
[2020-07-11] MEDS: Enoxaparin Sodium 40 MG/0.4 ML SYRINGE SUBCUT (14:05)
--- NOTE | 2020-07-11 14:48 | HO.PM.IMPN ---
Subjective Subjective Date of Service: 07/11/20 Interval History: Seen in follow-up for acute hypoxic respiratory failure due to COVID infection and required some ICU level but did not arise to mechanical ventilation, just CPAP. He is doing better, however remains hypoxic and on high flow oxygen--he is not struggling as he did prior to going to ICU. He remains very hypoxic and requiring more and more oxygen Review of Systems Gen: no fever Resp: + sob, no cough CV: no chest, no العلي, no leg edema GI: No n/v, no abd pain Neuro: No confusion Physical Exam Vital Signs: Vital Signs: Last Vital Signs Temp 97.7 F 07/11/20 10:58 Pulse 113 H 07/11/20 10:58 Resp 20 07/11/20 11:10 BP 131/69 07/11/20 10:58 Pulse Ox 95 07/11/20 10:58 Body Mass Index 34.4 Const: General: cooperative and comfortable Resp: Effort & Inspection: normal respiratory effort and able to speak in complete sentences Cardio: Jugular venous distension: no JVD Rhythm: regular rhythm Heart sounds: S1 normal heart sound present and S2 normal heart sound present GI: Palpation (GI): Soft to palpation Percussion: Yes normal to percussion Objective Data Current Medications Generic Name Dose Route Start Last Admin Trade Name Freq PRN Reason Stop Dose Admin Acetaminophen 650 mg 07/03/20 21:05 07/09/20 06:03 Acetaminophen 325 Mg Tablet PO 650 mg Q6H PRN Administration Pain, Mild (Pain Scale 1-3) Dexamethasone Sodium Phosphate 6 mg 07/04/20 09:00 07/11/20 07:41 Dexamethasone Sod Phosphate 4 Mg/Ml Vial IVPUSH 6 mg DAILY ASCENCION Administration Enoxaparin Sodium 40 mg 07/04/20 11:00 07/11/20 14:05 Enoxaparin Sodium 40 Mg/0.4 Ml Syringe SUBCUT 40 mg Q24H ASCENCION Administration Guaifenesin 10 ml 07/07/20 20:51 07/08/20 18:12 Guaifenesin 200 Mg/10 Ml 10 Ml Liquid PO 10 ml Q6H PRN Administration Cough Ondansetron HCl 4 mg 07/03/20 21:05 Ondansetron Hcl 4 Mg/2 Ml Vial IVPUSH Q8H PRN Nausea and Vomiting Pharmacy Consult 1 each 07/03/20 17:48 Consult Rx Perform Med Rec MISCELLANE ONCE PRN Consult order Sodium Chloride 3 ml 07/04/20 00:00 07/11/20 07:41 0.9 % Sodium Chloride Flush 3 Ml Syringe IVFLUSH 3 ml QSHIFT ASCENCION Administration Labs CBC & Chem 7: 07/09/20 06:00 07/09/20 06:00 Microbiology Microbiology Results: Microbiology 07/03/20 17:50 Blood - Venous Blood Culture - Final No growth after 5 days. 07/03/20 17:17 Blood - Venous Blood Culture - Final No growth after 5 days. Assessment and Plan (1) COVID-19: Status: Acute (2) Acute respiratory distress syndrome (ARDS) due to COVID-19 virus: Status: Acute (3) Acute respiratory failure with hypoxia: Status: Acute Assessment and Plan: 65 year old man admitted with acute respiratory failure secondary to Covid 19. Acute hypoxic respiratory failure secondary to covid 19 Covid pneumonia, required CPAP in ICU for several days and is making progress -O2 to maintain saturation 90% or greater and wean as much as possible -Decadron for 10 days, D8/10 -Of Abx, he was not candidate for Remdesevir d/t late presentation -He received plasma -Check routine labs and prognostic labs -Pulmonary following Obesity. BMI 34.4. Discussed importance of weight loss. I updated the over the phone, she was concern about patient not getting PT and advises her that current requirement of oxgygen is not safe to do PT DVT prophylaxis with Lovenox.
[2020-07-12] VITALS (11 sets, daily range): BP systolic 127–141; BP diastolic 65–86; PULSE 97–115; RESP 18–22; TEMP 36.7–37.8; O2SAT 89–95
[2020-07-12] MEDS: dexAMETHasone sod phosphate 4 MG/ML VIAL 6 MG IVPUSH (08:19)
[2020-07-12] MEDS: 0.9 % Sodium Chloride Flush 3 ML SYRINGE IVFLUSH ×2 (08:19→16:31)
[2020-07-12 10:24] LABS: Anion Gap 14 (12-20); Blood Urea Nitrogen 29 mg/dL (9-16); Calcium 8.6 mg/dL (8.4-10.2); Carbon Dioxide 31 mmol/L (22-29); Chloride 105 mmol/L (96-108); Creatinine Clr Calc Pharmacy 102.4; Estimated Glomerular Filt Rate > 60; Glucose Random 188 mg/dL (60-115); Potassium 4.1 mmol/l (3.3-5.1); Sodium 146 mmol/L (135-145)
[2020-07-12] MEDS: Enoxaparin Sodium 40 MG/0.4 ML SYRINGE SUBCUT (10:59)
--- NOTE | 2020-07-12 17:12 | PC.NURSE ---
Patient off nonrebreather but remains on high robb NC at 55L/100%. Vitals stable. OOB to chair. Continues to have poor appetite. Will continue to monitor.
--- NOTE | 2020-07-12 18:00 | HO.PM.IMPN ---
Subjective Subjective Date of Service: 07/13/20 Interval History: covid pneumonia Review of Systems covid pneumonia -acute hypoxic respiratory failure due to COVID infection, patient seems to be short of breath still but seems improving slowly, at least the work of breathing seems better and he could able to speak in full sentences. Denies any chest pain or abdominal pain or fever or chills. Physical Exam Vital Signs: Vital Signs: Last Vital Signs Temp 99.7 F 07/12/20 15: Pulse 99 07/12/20 15:21 Resp 20 07/12/20 15:21 BP 127/68 07/12/20 15: Pulse Ox 90 L 07/12/20 15: Body Mass Index 34.4 Physical exam: Constitutional: Not in acute distress Cvs: rrr, [id number] , no murmur res: Fair air entry, slightly diminished at bases. abd: no rebound or guarding ,nt, bs present. ext pulses present , no cyanosis neuro: axo3 , nonfocal. Objective Data Current Medications Generic Name Dose Route Start Last Admin Trade Name Freq PRN Reason Stop Dose Admin Acetaminophen 650 mg 07/03/20 21:05 07/09/20 06:03 Acetaminophen 325 Mg Tablet PO 650 mg Q6H PRN Administration Pain, Mild (Pain Scale 1-3) Dexamethasone Sodium Phosphate 6 mg 07/04/20 09:00 07/12/20 08:19 Dexamethasone Sod Phosphate 4 Mg/Ml Vial IVPUSH 6 mg DAILY ASCENCION Administration Enoxaparin Sodium 40 mg 07/04/20 11:00 07/12/20 10:59 Enoxaparin Sodium 40 Mg/0.4 Ml Syringe SUBCUT 40 mg Q24H ASCENCION Administration Guaifenesin 10 ml 07/07/20 20:51 07/08/20 18:12 Guaifenesin 200 Mg/10 Ml 10 Ml Liquid PO 10 ml Q6H PRN Administration Cough Ondansetron HCl 4 mg 07/03/20 21:05 Ondansetron Hcl 4 Mg/2 Ml Vial IVPUSH Q8H PRN Nausea and Vomiting Pharmacy Consult 1 each 07/03/20 17:48 Consult Rx Perform Med Rec MISCELLANE ONCE PRN Consult order Sodium Chloride 3 ml 07/04/20 00:00 07/12/20 16:31 0.9 % Sodium Chloride Flush 3 Ml Syringe IVFLUSH 3 ml QSHIFT ASCENCION Administration Labs CBC & Chem 7: 07/09/20 06:00 07/13/20 05:50 Microbiology Microbiology Results: Microbiology 07/03/20 17:50 Blood - Venous Blood Culture - Final No growth after 5 days. 07/03/20 17:17 Blood - Venous Blood Culture - Final No growth after 5 days. Assessment and Plan (1) Acute respiratory distress syndrome (ARDS) due to COVID-19 virus: Status: Acute (2) Acute respiratory failure with hypoxia: Status: Acute Assessment and Plan: 65 year old man admitted with acute respiratory failure secondary to Covid 19. 1.Acute hypoxic respiratory failure secondary to covid 19: Covid pneumonia, required CPAP in ICU for several days and is making progress O2 to maintain saturation 90% or greater and wean as much as possible Decadron for 10 days, D9/10 Of Abx, he was not candidate for Remdesevir d/t late presentation. 2.Obesity. BMI 34.4. Discussed importance of weight loss. I updated the over the phone, she was concern about patient not getting PT and advises she that current requirement of oxgygen is not safe to do PT DVT prophylaxis with Lovenox. (3) COVID-19: Status: Acute
[2020-07-12] MEDS: Dextrose 5 % 1,000 ML 50 ML IVCONT (22:06)
[2020-07-13] VITALS (22 sets, daily range): BP systolic 110–138; BP diastolic 40–73; PULSE 92–112; RESP 16–34; TEMP 36.2–37.5; O2SAT 87–94
--- NOTE | 2020-07-13 | XR_ITS ---
EXAMINATION: XR CHEST CLINICAL INFORMATION: ] Pneumonia COMPARISON: Chest 07/06/2020 TECHNIQUE: Frontal view of the chest was obtained. FINDINGS: The lungs are well-expanded with patchy airspace disease both lower lobes. The heart size and pulmonary vascularity is normal. No gross bony abnormality seen. XR/XR chest 1V IMPRESSION: Bilateral patchy opacities seen in both lower lobes. Previously seen right midlung opacity has improved.
[2020-07-13 03:18] LABS: Pt Ventilation O2% 100%
[2020-07-13 03:25] LABS: ABG PCO2 37 mmHg (32-45); Base Excess ABG 3.9; HCO3 ABG 27 mmol/L (22-26); PO2 ABG 66 mmHg (83-108); pH ABG 7.47 (7.35-7.45)
[2020-07-13 07:45] LABS: Anion Gap 20 (12-20); Blood Urea Nitrogen 30 mg/dL (9-16); Calcium 8.7 mg/dL (8.4-10.2); Carbon Dioxide 25 mmol/L (22-29); Chloride 106 mmol/L (96-108); Estimated Glomerular Filt Rate > 60; Glucose Random 154 mg/dL (60-115); Sodium 147 mmol/L (135-145)
[2020-07-13] MEDS: dexAMETHasone sod phosphate 4 MG/ML VIAL 6 MG IVPUSH (08:06)
[2020-07-13] MEDS: 0.9 % Sodium Chloride Flush 3 ML SYRINGE IVFLUSH (08:06)
[2020-07-13 09:30] LABS: C Reactive Protein 24.79 mg/dL (< or = 0.50)
[2020-07-13 11:00] LABS: Ferritin 2640 ng/mL (20-250)
[2020-07-13] MEDS: HYDROmorphone HCl 0.5 MG/0.5 ML SYRINGE IVPUSH (11:25)
--- NOTE | 2020-07-13 12:57 | PM.CCPN ---
Subjective Subjective Date of Service: 07/13/20 Interval History: Mr. Gold is transferred back to ICU with hypoxemic respiratory failure secondary to COVID pneumonia. 65 year old man with no significant medical history other than lumbar disc disease, status post back surgery, and status post left knee surgery. He presented to the ED via EMS on July 03 with worsening dyspnea on exertion since his Covid 19 diagnosis on June 30. He had been symptomatic with URI systems for several days prior to that. He had been together with some of his family around that weekend, and then his and mother with whom he lives started feeling ill. They went to an urgent care and were subsequently diagnosed with COVID-19. He reported worsening shortness of breath over the 24 hours [employer], with cough, clear phlegm, fever, chills, runny nose. He denies GI sx. In the ED, sat was 88% on room air with tachypnea and tachycardia and mild respiratory distress. Labs were largely unremarkable except for Ferritin 1356 and CRP 5. Procalcitonin was 0.03. COVID IgG antibody was negative. CTPA showed mild scattered pulmonary parenchymal ground-glass infiltrates characteristic of COVID-19. No pulmonary emboli were seen. The right heart is borderline enlarged (my reading), with straightened septal border. He was given empiric antibiotics and Decadron, Sat sayra to 94% on 4 L oxygen by nasal cannula. He was admitted to Medicine for further management of acute respiratory failure secondary to COVID-19. Since then has had progressively increasing oxygen requirement. He was not given remdesivir nor convalescent plasma because he was felt to be out of the time range. On July 06 he was transferred to the ICU, requiring high-flow nasal cannula + NRBFM. He was started on CPAP and diuresed. He did well and transition to high-flow nasal cannula alone. He was then transferred out of the ICU on July 08. Echo done on July 09 was fairly normal notable only for mildly increased LV wall thickness and grade 1 diastolic dysfunction. RV cavity size and systolic function were normal. RVSP estimate was 33 mm. Today his sats dropped and non-rebreather face mask was added to the high-flow nasal cannula. Reportedly, sats were running in the mid to high 80s. Dr. Garza called me to evaluate the patient. On IMC, the patient was tachypneic but nonlabored and saying that he was having difficulty breathing, although he didn?t look it. We therefore transferred him down to ICU for CPAP. See vital signs below. On CPAP 10 cm/100%, respiratory rate was high 30s, tidal volumes in the 700s, sat 94%. We changed him to BiPAP and gave him Dilaudid 0.5 mg. On BiPAP 10/14/90%, respiratory rate was 30, tidal volumes averaging 700 cc, minute volume averaging 21 L, sat was 94%. The patient looked quite comfortable. However he said he did not like the BiPAP mask, said he would prefer the high-flow with a non-rebreather. Therefore we changed him back to high-flow. On 60 L/100%, he is satting 86-89%. Respiratory rate is 27-30 and he looks quite comfortable, with no increased work of breathing, other than that attributable to his respiratory rate. Temperature has been running 99-100 degrees. No accessory muscle use. He has no peripheral edema. LABORATORY DATA: Last CBC on July 09 showed white count 7.0. D-dimer was 502. Arterial blood gas at 03:00 this morning, reportedly on 100% oxygen, showed 7.47/37/66/3. Chemistries this morning were notable for sodium 147, BUN and creatinine 30/0.8, glucose glucose 154, ferritin down to 2640, CRP up to 24. Chest x-ray this morning shows mild bilateral patchy opacities, especially in both lower lobes. This morning's film is actually improved from that of July 06. IMPRESSION: 1. Bilateral pulmonary infiltrates due to COVID pneumonia. I?ll up his steroids to Solumedrol 80mg bid, and add thiamine, Pepcid, Vit D, and Vit C. I?m going to increase Lovenox to ? mg/kg bid. 2. Acute hypoxemic respiratory failure secondary to the above. I?m OK with Sat?s in the mid 80s on the [facility] if he?s most comfortable on that. Opiates to control WOB. 3. Acute kidney injury. Hypovolemia versus right heart strain. Check U-Na. 4. Hypernatremia. Started on D5W. 5. ID. No antibiotics indicated at this time. Prognosis is guarded. Spoke to his . The patient and his requested transfer to [facility]. I called the transfer line. I was told that they are not accepting lateral transfers. Furthermore, they do not have the Regeneron monoclonal antibody, nor do they have any plans to get any this year. I discussed that with the patient and he accepted it. I told the patient's that his condition was very serious and his survival is not guaranteed. Critical care time (including full chart review and hospital course summary): 90+ min. Physical Exam Vital Signs: Vital Signs: Last Vital Signs Temp 97.6 F 07/13/20 10:37 Pulse 105 H 07/13/20 12:00 Resp 30 H 07/13/20 12:00 BP 122/60 07/13/20 12:00 Pulse Ox 92 07/13/20 12:00 Body Mass Index 34.4 Objective Data Labs CBC & Chem 7: 07/09/20 06:00 07/13/20 05:50 Labs: Laboratory Results - last 24 hr 07/13/20 07/13/20 07/13/20 03:09 05:50 05:50 ABG pH 7.47 H ABG pCO2 37 ABG pO2 66 L ABG HCO3 27 H ABG O2 Saturation 91.0 ABG Base Excess 3.9 Oxygen Given 100% Sodium 147 H Potassium 4.0 Chloride 106 Carbon Dioxide 25 Anion Gap 20 BUN 30 H Creatinine 0.83 Estim Creat Clear Calc 111.0 Estimated GFR > 60 Random Glucose 154 H Calcium 8.7 Ferritin 2640 H C-Reactive Protein 24.79 H Microbiology Microbiology Results: Microbiology 07/03/20 17:50 Blood - Venous Blood Culture - Final No growth after 5 days. 07/03/20 17:17 Blood - Venous Blood Culture - Final No growth after 5 days. Progress Note: A&P Time Spent With Patient Time: Total time spent is greater than 50% in coordination of care (as documented) at patient's floor/unit and/or counseling patient: Total time spent with greater than 50% in coordination of care (as documented) at patient's floor/unit and/or counseling patient:: 0 Critical Care Time Critical Care Time (minutes): 90
[2020-07-13] MEDS: Enoxaparin Sodium 40 MG/0.4 ML SYRINGE SUBCUT (12:58)
--- NOTE | 2020-07-13 14:55 | HO.PM.IMPN ---
Subjective Subjective Date of Service: 07/17/20 Interval History: covid pneumonia Review of Systems Patient shortness of breath progressively worsening this morning , Saturation is in 80s And patient is also saying that he is struggling to breath, denies any chest pain or cough or phlegm Physical Exam Vital Signs: Vital Signs: Last Vital Signs Temp 97.9 F 07/13/20 14:00 Pulse 107 H 07/13/20 14:00 Resp 16 07/13/20 14:00 BP 127/46 L 07/13/20 14:00 Pulse Ox 89 L 07/13/20 14:00 Body Mass Index 34.4 Physio: Constitutional: Worsening shortness of breath Cvs: rrr, [id number] , no murmur res: Diminished breath sounds at bases, no rales or wheezing abd: no rebound or guarding ,nt, bs present. ext pulses present , no cyanosis neuro: axo3 , nonfocal. Objective Data Current Medications Generic Name Dose Route Start Last Admin Trade Name Freq PRN Reason Stop Dose Admin Acetaminophen 650 mg 07/03/20 21:05 07/09/20 06:03 Acetaminophen 325 Mg Tablet PO 650 mg Q6H PRN Administration Pain, Mild (Pain Scale 1-3) Dexamethasone Sodium Phosphate 6 mg 07/13/20 21:00 Dexamethasone Sod Phosphate 4 Mg/Ml Vial IVPUSH BID ASCENCION Enoxaparin Sodium 40 mg 07/04/20 11:00 07/13/20 12:58 Enoxaparin Sodium 40 Mg/0.4 Ml Syringe SUBCUT 40 mg Q24H ASCENCION Administration Famotidine 20 mg 07/13/20 21:00 Famotidine/Pf 20 Mg/2 Ml Vial IVPUSH BID ASCENCION Guaifenesin 10 ml 07/07/20 20:51 07/08/20 18:12 Guaifenesin 200 Mg/10 Ml 10 Ml Liquid PO 10 ml Q6H PRN Administration Cough Hydromorphone HCl 0.5 mg 07/13/20 11:30 07/13/20 11:25 Hydromorphone Hcl 0.5 Mg/0.5 Ml Syringe IVPUSH 0.5 mg Q1H PRN Administration WOB Dextrose 1,000 mls @ 75 mls/hr 07/12/20 19:30 07/12/20 22:06 D5w IVCONT 50 mls/hr .[id number] ASCENCION Administration Ondansetron HCl 4 mg 07/03/20 21:05 Ondansetron Hcl 4 Mg/2 Ml Vial IVPUSH Q8H PRN Nausea and Vomiting Pharmacy Consult 1 each 07/03/20 17:48 Consult Rx Perform Med Rec MISCELLANE ONCE PRN Consult order Sodium Chloride 3 ml 07/04/20 00:00 07/13/20 08:06 0.9 % Sodium Chloride Flush 3 Ml Syringe IVFLUSH 3 ml QSHIFT ASCENCION Administration Labs CBC & Chem 7: 07/16/20 05:35 07/16/20 05:35 Microbiology Microbiology Results: Microbiology 07/03/20 17:50 Blood - Venous Blood Culture - Final No growth after 5 days. 07/03/20 17:17 Blood - Venous Blood Culture - Final No growth after 5 days. Assessment and Plan (1) Acute respiratory distress syndrome (ARDS) due to COVID-19 virus: Status: Acute (2) Acute respiratory failure with hypoxia: Status: Acute Assessment and Plan: 65 year old man admitted with acute respiratory failure secondary to Covid 19. 1.Acute hypoxic respiratory failure secondary to covid 19: Covid pneumonia, required CPAP in ICU for several days and is making progress Was feeling progressive shortness of breath overnight, ABG done overnight-O2 sats are in low range 80s Patient is on and nbrm and high-flow Decadron for 10 days, D10/10,as per chart review-he was not candidate for Remdesevir d/t late presentation. Chest x-ray seems bibasilar opacities probable worsening COVID pneumonia as above Due to worsening shortness of breath and progressive respiratory failure and unable to maintain sats, increased work of work of breathing: Patient will benefit from ICU level of care. 2.Obesity. BMI 34.4. Discussed importance of weight loss. (3) COVID-19: Status: Acute
--- NOTE | 2020-07-13 15:34 | PC.NURSE ---
Patient desatting on highflow 100% 60L and 100% nonrebreather. patient complained of difficulty breathing. Notified Doctor Greg. New orders for labs, chest xray and intensive care consult. With activity patient de-satted to 72% Patient was placed on CPAP per Dr. Goldberg. New order to transfer to ICU report given to ICU nurse. Patient transferred to ICU on CPAP.
[2020-07-13] MEDS: Thiamine HCL 200 MG/2 ML VIAL IVPUSH (17:40)
[2020-07-13] MEDS: methylPREDNISolone Sod Succ/PF 125 MG/2 ML VIAL 80 MG IVPUSH (17:41)
[2020-07-13] MEDS: Dextrose 5 % 1,000 ML 50 ML IVCONT (17:41)
[2020-07-13] MEDS: Nystatin Oral Susp 500,000 UNIT/5 ML ORAL.SUSP 500000 UNIT PO ×2 (17:42→19:57)
[2020-07-13 18:44] LABS: PCO2 VBG 53 mmHg; PO2 VBG 33 mmHg; pH VBG 7.41 (7.32-7.43)
[2020-07-13 18:45] LABS: Base Excess VBG 7.5 mmol/L; HCO3 VBG 33 mmol/L
[2020-07-13 18:46] LABS: Basophils Percent Auto 0.1 % (0-2); Hemoglobin 14.3 g/dl (14.0-18.0); Imm Gran Abs Auto 0.08 X10*3/uL (0.00-0.03); Lymphocytes Absolute Auto 0.6 X10*3/uL (1.2-4.9); Lymphocytes Percent Auto 7.9 % (20-40); MANUAL DIFF FLAG SCAN; Mean Corpuscular HGB Conc 32.5 g/dl (31.0-36.0); Mean Corpuscular Hemoglobin 30.1 pg (27.0-33.0); Mean Corpuscular Volume 92.6 fL (80-98); Mean Platelet Volume 10.2 fL (9.4-12.4); Monocytes Absolute Auto 0.2 X10*3/uL (0.1-1.2); Monocytes Percent Auto 2.1 % (2-11); Neutrophils Absolute Auto 7.1 X10*3/uL (2.0-8.3); Neutrophils Percent Auto 88.9 % (45-73); Platelet Count 193 X10*3/uL (160-400); Red Blood Count 4.75 X10*6/uL (4.60-5.80); Red Cell Distribution Width 13.1 % (11.0-16.0); SCAN SMEAR FLAG 1
[2020-07-13 19:06] LABS: D Dimer 3143 NG/ML
[2020-07-13 19:13] LABS: Alanine Aminotransferase 67 U/L (0-40); Albumin Level 3.4 g/dL (3.5-5.0); Alkaline Phosphatase 79 U/L (39-117); Anion Gap 14 (12-20); Aspartate Amino Transferase 28 U/L (5-37); Bilirubin Total 1.7 mg/dL (0.0-1.0); Blood Urea Nitrogen 27 mg/dL (9-16); Calcium 8.6 mg/dL (8.4-10.2); Carbon Dioxide 31 mmol/L (22-29); Chloride 105 mmol/L (96-108); Creatinine Clr Calc Pharmacy 93.1; Estimated Glomerular Filt Rate > 60; Glucose Random 231 mg/dL (60-115); Magnesium 2.6 mg/dL (1.6-2.6); Phosphorus 3.4 mg/dL (2.7-4.5); Potassium 4.4 mmol/l (3.3-5.1); Sodium 146 mmol/L (135-145); Total Protein 6.6 g/dL (6.5-8.0)
[2020-07-13 19:27] LABS: Procalcitonin 0.08 ng/mL
[2020-07-13 19:38] LABS: SLIDE REVIEW VERIFIED
[2020-07-13] MEDS: Famotidine/PF 20 MG/2 ML VIAL 40 MG IVPUSH (19:57)
[2020-07-13] MEDS: Enoxaparin Sodium 60 MG/0.6 ML SYRINGE 50 MG SUBCUT (22:42)
[2020-07-14] VITALS (31 sets, daily range): BP systolic 111–133; BP diastolic 52–89; PULSE 87–104; RESP 20–33; TEMP 36.1–36.6; O2SAT 85–94
[2020-07-14] MEDS: methylPREDNISolone Sod Succ/PF 125 MG/2 ML VIAL 80 MG IVPUSH ×2 (05:02→16:26)
[2020-07-14 05:22] LABS: PCO2 VBG 47 mmHg; PO2 VBG 32 mmHg; pH VBG 7.47 (7.32-7.43)
[2020-07-14 05:23] LABS: Base Excess VBG 9.7 mmol/L; HCO3 VBG 35 mmol/L
[2020-07-14 05:26] LABS: Hematocrit 42.4 % (42-52); Hemoglobin 13.8 g/dl (14.0-18.0); Imm Gran Abs Auto 0.05 X10*3/uL (0.00-0.03); Imm Gran Pct Auto 0.7 % (0.0-0.4); Lymphocytes Absolute Auto 0.5 X10*3/uL (1.2-4.9); Lymphocytes Percent Auto 7.7 % (20-40); MANUAL DIFF FLAG SCAN; Mean Corpuscular HGB Conc 32.5 g/dl (31.0-36.0); Mean Corpuscular Hemoglobin 30.3 pg (27.0-33.0); Mean Platelet Volume 10.3 fL (9.4-12.4); Monocytes Absolute Auto 0.2 X10*3/uL (0.1-1.2); Monocytes Percent Auto 2.7 % (2-11); Neutrophils Percent Auto 88.9 % (45-73); Platelet Count 201 X10*3/uL (160-400); Red Blood Count 4.56 X10*6/uL (4.60-5.80); Red Cell Distribution Width 13.1 % (11.0-16.0); SCAN SMEAR FLAG 1; White Blood Count 6.8 X10*3/uL (4.8-10.8)
[2020-07-14 05:42] LABS: Anion Gap 16 (12-20); Blood Urea Nitrogen 28 mg/dL (9-16); C Reactive Protein 20.82 mg/dL (< or = 0.50); Calcium 8.5 mg/dL (8.4-10.2); Carbon Dioxide 29 mmol/L (22-29); Chloride 103 mmol/L (96-108); Creatinine Clr Calc Pharmacy 103.5; Estimated Glomerular Filt Rate > 60; Glucose Random 188 mg/dL (60-115); Potassium 4.3 mmol/l (3.3-5.1); Sodium 144 mmol/L (135-145)
[2020-07-14 05:49] LABS: D Dimer 3763 NG/ML
--- NOTE | 2020-07-14 05:55 | PC.NURSE ---
PT REFUSED TO WEAR BIPAP, TOLERATING HFNC/NRB 60L/100% WELL. RR 20-30, BREATHING EASY, NO C/O SOB PER PT. LS DIMINISHED. العلي, DESATS EASILY. SpO2 88-90%. OOB/RECLINER ALL NIGHT. OTHERWISE AFEBRILE, NSR ON TELE, HR 90s, BP WNL. VOIDING IN URINAL. SKIN INTACT, ORAL THRUSH NOTED. MEDICATED PER EMAR. PT'S SISTER CALLED, GIVEN UPDATE WITH PT PERMISSION.
[2020-07-14 05:57] LABS: SLIDE REVIEW VERIFIED
[2020-07-14 06:40] LABS: Ferritin 2425 ng/mL (20-250)
[2020-07-14] MEDS: 0.9 % Sodium Chloride Flush 3 ML SYRINGE IVFLUSH ×3 (07:20→23:57)
[2020-07-14] MEDS: Famotidine/PF 20 MG/2 ML VIAL 40 MG IVPUSH ×2 (07:20→19:51)
[2020-07-14] MEDS: Thiamine HCL 200 MG/2 ML VIAL IVPUSH ×2 (07:20→19:51)
[2020-07-14] MEDS: Ascorbic Acid 500 MG TABLET 1000 MG PO ×4 (07:20→19:50)
[2020-07-14] MEDS: Nystatin Oral Susp 500,000 UNIT/5 ML ORAL.SUSP 500000 UNIT PO ×4 (07:20→19:51)
[2020-07-14] MEDS: Cholecalciferol (Vitamin D3) 25 MCG TABLET 50 MCG PO (07:21)
[2020-07-14] MEDS: Dextrose 5 % 1,000 ML 75 ML IVCONT (11:05)
[2020-07-14] MEDS: Enoxaparin Sodium 60 MG/0.6 ML SYRINGE 50 MG SUBCUT ×2 (11:05→23:58)
--- NOTE | 2020-07-14 11:42 | US_ITS ---
EXAMINATION: US VENOUS ULTRASOUND WITH DOPPLER LOWER EXTREMITY, BILATERAL CLINICAL INFORMATION: Leg pain. Evaluate for deep vein thrombosis. COMPARISON: None TECHNIQUE: Ultrasound of the deep veins is performed from the hip to the calf with compression sonography and color and pulse Doppler assessment. Spectral analysis with color-flow imaging is performed. FINDINGS: The common femoral vein is compressible and exhibits a normal phasic waveform, bilaterally; this suggests that the iliac veins are widely patent above. Within each proximal thigh, the visualized profunda femoris vein is patent. The visualized greater saphenous veins and saphenofemoral junctions are normal. Superficial femoral vein is patent in the proximal, mid and distal aspect of each thigh. Popliteal vein appears normal to the level of the trifurcation, bilaterally, and the tibial and peroneal veins of each calf are normal. No evidence of Doe's cyst. US/US venous duplex LE IMPRESSION: No evidence of deep vein thrombosis in either lower extremity.
--- NOTE | 2020-07-14 12:37 | PM.CCPN ---
Subjective Subjective Date of Service: 07/14/20 Interval History: Mr. Gold is transferred back to ICU with hypoxemic respiratory failure secondary to COVID pneumonia. The patient is a 65 year old man with no significant medical history other than lumbar disc disease, status post back surgery, and status post left knee surgery. He presented to the ED via EMS on July 03 with worsening dyspnea on exertion since his Covid 19 diagnosis on June 30. He had been symptomatic with URI systems for several days prior to that. He had been together with some of his family around that weekend, and then his and mother with whom he lives started feeling ill. They went to an urgent care and were subsequently diagnosed with COVID-19. He reported worsening shortness of breath over the 24 hours [employer], with cough, clear phlegm, fever, chills, runny nose. He had no GI sx. In the ED, sat was 88% on room air with tachypnea and tachycardia and mild respiratory distress. Labs were largely unremarkable except for Ferritin 1356 and CRP 5. Procalcitonin was 0.03. COVID IgG antibody was negative. CTPA showed mild scattered pulmonary parenchymal ground-glass infiltrates characteristic of COVID-19. No pulmonary emboli were seen. The right heart is borderline enlarged (my reading), with straightened septal border. He was given empiric antibiotics and Decadron, On 4 L NC oxygen, Sat sayra to 94%. He was admitted to Medicine for further management of acute respiratory failure secondary to COVID-19. Since then he had progressively increasing oxygen requirement. He was not given remdesivir nor convalescent plasma because he was felt to be out of the time range. On July 06 he was transferred to the ICU, requiring high-flow nasal cannula + NRBFM. He was started on CPAP and diuresed. He did well and transitioned to high-flow nasal cannula alone. He was then transferred out of the ICU on July 08. Echo done on July 09 was fairly normal, notable only for mildly increased LV wall thickness and grade 1 diastolic dysfunction. RV cavity size and systolic function were reportedly normal. RVSP estimate was 33 mm. Yesterday morning (07/13) his sats dropped and non-rebreather face mask was added to the high-flow nasal cannula. He was tachypneic but nonlabored, and saying that he was having difficulty breathing, although he didn?t look it. We therefore transferred him down to ICU for CPAP. On CPAP 10 cm/100%, respiratory rate was high 30s, tidal volumes in the 700s, sat 94%. We changed him to BiPAP and gave him small dose opoid. On BiPAP 10/14/90%, respiratory rate was 30, tidal volumes averaging 700 cc, minute volume averaging 21 L, sat was 94%. The patient looked quite comfortable, and mentation was fully intact. He did not like the BiPAP mask, said he would prefer the high-flow with a non-rebreather. Therefore we changed him back to high-flow. On 60 L/100% high flow alone, he was satting 86-89%. Respiratory rate was high 20?s and he looked quite comfortable, with no increased work of breathing, other than that attributable to his respiratory rate. He did well on that overnight. This morning, his feeling of dyspnea waxes and wanes. When I went in to talk with him, we had an extended conversation. His speech was not limited by dyspnea. See vital signs below. He was breathing easy with a respiratory rate in the mid 20s on high-flow nasal cannula 60 L/100%, with sat high 80s. Central venous blood gas this morning shows 7.47/47/+9. Work of breathing was not increased, other than that attributable to his respiratory rate. No accessory muscle use He was reclining in the bedside chair with his legs crossed. He remains afebrile. Heart rate is down into the 90s. He has no JVD. Expiratory phase is normal. No edema. LABORATORY DATA: As below. Notably, sodium is down to 144. Glucose 188. D-dimer is in the 3000s. Ferritin and CRP are down slightly. IMPRESSION: 1. Bilateral pulmonary infiltrates due to COVID pneumonia. We upped his steroids to Solumedrol 80mg bid, and add thiamine, Pepcid, Vit D, and Vit C, and increased Lovenox to ? mg/kg bid. 2. Elevated D-dimer. Ordered a duplex scan of his lower extremities. I will order troponin and BNP tomorrow morning (r/o PE). 3. Acute hypoxemic respiratory failure secondary to the above. I?m OK with Sat?s in the mid 80s on the HFNC if he?s most comfortable on that. Opiates to control WOB. Discussed proning with him. He normally sleeps on his stomach. We?ll try it tonight. I?ll order some Ambien to help him sleep. 4. Acute kidney injury. Hypovolemia versus right heart strain. U-Na was low. For now, we?ll just continue low dose D5W. 5. Hypernatremia. Resolving on D5W. 6. Metabolic alkalosis. Wrote him for Diamox. Probably won?t need more than a couple of doses. 7. Hyperglycemia. We?ll start SS insulin if POC > 200. 8. ID. No antibiotics indicated at this time. Prognosis is guarded, but he does look better today. I told him to plan on another two weeks like this. Spoke to his yesterday. The patient and his requested transfer to [facility]. I called the transfer line at [facility] and was told that they are not accepting lateral transfers. Furthermore, they do not have the Regeneron monoclonal antibody, nor do they have any plans to get any this year. I discussed that with the patient and he accepted it. I told the patient's that his condition is very serious and his survival is not guaranteed. Critical care time: 50 min. Physical Exam Vital Signs: Vital Signs: Last Vital Signs Temp 96.9 F 07/14/20 09:00 Pulse 96 07/14/20 11:57 Resp 28 H 07/14/20 11:57 BP 118/63 07/14/20 11:57 Pulse Ox 91 L 07/14/20 11:57 Body Mass Index 34.4 Objective Data Labs CBC & Chem 7: 07/14/20 05:05 07/14/20 05:05 Labs: Laboratory Results - last 24 hr 07/13/20 07/13/20 07/13/20 14:35 18:31 18:31 WBC 8.0 RBC 4.75 Hgb 14.3 Hct 44.0 MCV 92.6 MCH 30.1 MCHC 32.5 RDW 13.1 Plt Count 193 MPV 10.2 Immature Gran % (Auto) 1.0 H Neut % (Auto) 88.9 H Lymph % (Auto) 7.9 L [place] % (Auto) 2.1 Eos % (Auto) 0.0 Baso % (Auto) 0.1 Lymph # (Auto) 0.6 L [place] # (Auto) 0.2 Eos # (Auto) 0.0 Baso # (Auto) 0.0 Abs Immat Gran (auto) 0.08 H Absolute Neuts (auto) 7.1 Absolute Nucleated RBC 0.000 Nucleated RBC % (auto) 0.0 Smear Tech's Comments VERIFIED D-Dimer 3143 VBG pH VBG pCO2 VBG pO2 VBG HCO3 VBG O2 Saturation VBG Base Excess Sodium Potassium Chloride Carbon Dioxide Anion Gap BUN Creatinine Estim Creat Clear Calc Estimated GFR Random Glucose Calcium Phosphorus Magnesium Ferritin Total Bilirubin AST ALT Alkaline Phosphatase C-Reactive Protein Total Protein Albumin Procalcitonin Ur Random Sodium 29.0 07/13/20 07/13/20 07/13/20 18:31 18:32 18:32 WBC RBC Hgb Hct MCV MCH MCHC RDW Plt Count MPV Immature Gran % (Auto) Neut % (Auto) Lymph % (Auto) [place] % (Auto) Eos % (Auto) Baso % (Auto) Lymph # (Auto) [place] # (Auto) Eos # (Auto) Baso # (Auto) Abs Immat Gran (auto) Absolute Neuts (auto) Absolute Nucleated RBC Nucleated RBC % (auto) Smear Tech's Comments D-Dimer VBG pH 7.41 VBG pCO2 53 VBG pO2 33 VBG HCO3 33 VBG O2 Saturation 47.0 VBG Base Excess 7.5 Sodium 146 H Potassium 4.4 Chloride 105 Carbon Dioxide 31 H Anion Gap 14 BUN 27 H Creatinine 0.99 Estim Creat Clear Calc 93.1 Estimated GFR > 60 Random Glucose 231 H D Calcium 8.6 Phosphorus 3.4 Magnesium 2.6 Ferritin Total Bilirubin 1.7 H AST 28 D ALT 67 H Alkaline Phosphatase 79 D C-Reactive Protein Total Protein 6.6 Albumin 3.4 L Procalcitonin 0.08 Ur Random Sodium 07/14/20 07/14/20 07/14/20 05:05 05:05 05:05 WBC 6.8 RBC 4.56 L Hgb 13.8 L Hct 42.4 MCV 93.0 MCH 30.3 MCHC 32.5 RDW 13.1 Plt Count 201 MPV 10.3 Immature Gran % (Auto) 0.7 H Neut % (Auto) 88.9 H Lymph % (Auto) 7.7 L [place] % (Auto) 2.7 Eos % (Auto) 0.0 Baso % (Auto) 0.0 Lymph # (Auto) 0.5 L [place] # (Auto) 0.2 Eos # (Auto) 0.0 Baso # (Auto) 0.0 Abs Immat Gran (auto) 0.05 H Absolute Neuts (auto) 6.0 Absolute Nucleated RBC 0.000 Nucleated RBC % (auto) 0.0 Smear Tech's Comments VERIFIED D-Dimer 3763 VBG pH VBG pCO2 VBG pO2 VBG HCO3 VBG O2 Saturation VBG Base Excess Sodium 144 Potassium 4.3 Chloride 103 Carbon Dioxide 29 Anion Gap 16 BUN 28 H Creatinine 0.89 Estim Creat Clear Calc 103.5 Estimated GFR > 60 Random Glucose 188 H Calcium 8.5 Phosphorus Magnesium Ferritin 2425 H Total Bilirubin AST ALT Alkaline Phosphatase C-Reactive Protein 20.82 H Total Protein Albumin Procalcitonin Ur Random Sodium 07/14/20 05:05 WBC RBC Hgb Hct MCV MCH MCHC RDW Plt Count MPV Immature Gran % (Auto) Neut % (Auto) Lymph % (Auto) [place] % (Auto) Eos % (Auto) Baso % (Auto) Lymph # (Auto) [place] # (Auto) Eos # (Auto) Baso # (Auto) Abs Immat Gran (auto) Absolute Neuts (auto) Absolute Nucleated RBC Nucleated RBC % (auto) Smear Tech's Comments D-Dimer VBG pH 7.47 H VBG pCO2 47 VBG pO2 32 VBG HCO3 35 VBG O2 Saturation 43.0 VBG Base Excess 9.7 Sodium Potassium Chloride Carbon Dioxide Anion Gap BUN Creatinine Estim Creat Clear Calc Estimated GFR Random Glucose Calcium Phosphorus Magnesium Ferritin Total Bilirubin AST ALT Alkaline Phosphatase C-Reactive Protein Total Protein Albumin Procalcitonin Ur Random Sodium Microbiology Microbiology Results: Microbiology 07/03/20 17:50 Blood - Venous Blood Culture - Final No growth after 5 days. 07/03/20 17:17 Blood - Venous Blood Culture - Final No growth after 5 days. Progress Note: A&P Time Spent With Patient Time: Total time spent is greater than 50% in coordination of care (as documented) at patient's floor/unit and/or counseling patient: Total time spent with greater than 50% in coordination of care (as documented) at patient's floor/unit and/or counseling patient:: 0 Critical Care Time Critical Care Time (minutes): 60
--- NOTE | 2020-07-14 13:51 | PC.NURSE ---
Pt A&Ox3, complains of increased WOB at rest. Pt is on highflow oxygen FiO2 100% at 60L/min, will intermittently desat to 80%, supplemented with a nonrebreather which brings SaO2 back up to 94%. Does stay 92% on highflow alone at times. Tachypneic RR 24-30, fine crackles bases, dyspneic on minimal exertion, nonproductive cough. Denies pain. NSR with occasional PVC 90's, 2+ pitting edema BLE, BP stable. Ddimer trending up 3,763, venous ultrasound lower extremities being done at bedside at this time. Pt ate very little of meals. Voiding in urinal 600ml out this shift. MD Goldberg spoke to patient, pt prefers to sleep prone and will try tonight. Bed locked and in lowest position. Call barajas in reach.
[2020-07-14] MEDS: acetaZOLAMIDE 250 MG TABLET 500 MG PO ×2 (14:44→19:50)
[2020-07-14 17:53] LABS: Glucose, Whole Blood 193 mg/dL (60-115)
[2020-07-14] MEDS: Zolpidem Tartrate 5 MG TABLET PO (19:51)
[2020-07-14] MEDS: HYDROmorphone HCl 0.5 MG/0.5 ML SYRINGE IVPUSH (22:15)
[2020-07-15] VITALS (26 sets, daily range): BP systolic 101–122; BP diastolic 53–78; PULSE 76–108; RESP 17–39; TEMP 36–36.8; O2SAT 86–95
[2020-07-15] MEDS: methylPREDNISolone Sod Succ/PF 125 MG/2 ML VIAL 80 MG IVPUSH ×2 (04:32→17:31)
[2020-07-15 05:38] LABS: MANUAL DIFF FLAG NO
[2020-07-15 05:39] LABS: Basophils Percent Auto 0.1 % (0-2); Hematocrit 42.8 % (42-52); Hemoglobin 14.1 g/dl (14.0-18.0); Imm Gran Abs Auto 0.09 X10*3/uL (0.00-0.03); Imm Gran Pct Auto 1.1 % (0.0-0.4); Lymphocytes Absolute Auto 0.7 X10*3/uL (1.2-4.9); Lymphocytes Percent Auto 8.7 % (20-40); Mean Corpuscular HGB Conc 32.9 g/dl (31.0-36.0); Mean Corpuscular Hemoglobin 29.9 pg (27.0-33.0); Mean Corpuscular Volume 90.9 fL (80-98); Mean Platelet Volume 10.4 fL (9.4-12.4); Monocytes Absolute Auto 0.4 X10*3/uL (0.1-1.2); Monocytes Percent Auto 4.2 % (2-11); Neutrophils Absolute Auto 7.1 X10*3/uL (2.0-8.3); Neutrophils Percent Auto 85.9 % (45-73); Platelet Count 185 X10*3/uL (160-400); Red Blood Count 4.71 X10*6/uL (4.60-5.80); Red Cell Distribution Width 12.8 % (11.0-16.0); White Blood Count 8.3 X10*3/uL (4.8-10.8)
[2020-07-15 05:42] LABS: HCO3 VBG 23 mmol/L; PCO2 VBG 31 mmHg; PO2 VBG 179 mmHg; pH VBG 7.48 (7.32-7.43)
[2020-07-15 06:06] LABS: D Dimer 2221 NG/ML
[2020-07-15 06:13] LABS: Alanine Aminotransferase 76 U/L (0-40); Albumin Level 3.3 g/dL (3.5-5.0); Alkaline Phosphatase 76 U/L (39-117); Anion Gap 16 (12-20); Aspartate Amino Transferase 29 U/L (5-37); Bilirubin Total 1.1 mg/dL (0.0-1.0); Blood Urea Nitrogen 29 mg/dL (9-16); Calcium 8.4 mg/dL (8.4-10.2); Carbon Dioxide 23 mmol/L (22-29); Chloride 106 mmol/L (96-108); Creatinine Clr Calc Pharmacy 105.9; Estimated Glomerular Filt Rate > 60; Glucose Random 179 mg/dL (60-115); Potassium 3.9 mmol/l (3.3-5.1); Sodium 141 mmol/L (135-145); Total Protein 6.4 g/dL (6.5-8.0)
[2020-07-15 06:35] LABS: B Type Natriuretic Peptide 12 pg/mL (<100)
[2020-07-15 07:25] LABS: Ferritin 2210 ng/mL (20-250)
--- NOTE | 2020-07-15 08:36 | MHC.CM.PN ---
pt is now in the icu, dc plan at this time remains home no svcs. cm to cont. to follow.
[2020-07-15] MEDS: Thiamine HCL 200 MG/2 ML VIAL IVPUSH ×2 (08:42→22:29)
[2020-07-15] MEDS: Ascorbic Acid 500 MG TABLET 1000 MG PO ×4 (08:42→22:30)
[2020-07-15] MEDS: Famotidine/PF 20 MG/2 ML VIAL 40 MG IVPUSH ×2 (08:42→22:29)
[2020-07-15] MEDS: Nystatin Oral Susp 500,000 UNIT/5 ML ORAL.SUSP 500000 UNIT PO ×4 (08:42→22:30)
[2020-07-15] MEDS: Dextrose 5 % 1,000 ML 40 ML IVCONT (08:43)
[2020-07-15] MEDS: Cholecalciferol (Vitamin D3) 25 MCG TABLET 50 MCG PO (08:43)
[2020-07-15] MEDS: 0.9 % Sodium Chloride Flush 3 ML SYRINGE IVFLUSH ×3 (08:44→22:32)
--- NOTE | 2020-07-15 11:42 | PC.NURSE ---
Pt A&Ox3, no pain reported, states breathing feels slightly better from yesterday. Continues hi-flow 60L/min FiO2 100% + NRB SaO2 93%, tachypneic RR 27, lung sounds clear upper, dim with fine crackles in bilat bases. Dyspenic just from taking pills crushed in ice cream. Pt states he attempted to prone last night and he felt he was too short of breath. Currently sitting in recliner. NSR 70s, BP stable, 2+ edema BLE. Voided 425ml in urinal. urine sodium 74 from todays sample. Minimal PO intake with food. Will continue to monitor.
[2020-07-15] MEDS: Zinc Sulfate 220 MG CAPSULE PO (11:57)
[2020-07-15] MEDS: Enoxaparin Sodium 60 MG/0.6 ML SYRINGE 50 MG SUBCUT ×2 (11:57→22:31)
--- NOTE | 2020-07-15 12:27 | PM.CCPN ---
Subjective Subjective Date of Service: 07/15/20 Interval History: Mr. Gold is transferred back to ICU with hypoxemic respiratory failure secondary to COVID pneumonia. The patient is a 65 year old man with no significant medical history other than lumbar disc disease, status post back surgery, and status post left knee surgery. He presented to the ED via EMS on July 03 with worsening dyspnea on exertion since his Covid 19 diagnosis on June 30. He had been symptomatic with URI systems for several days prior to that. He had been together with some of his family around that weekend, and then his and mother with whom he lives started feeling ill. They went to an urgent care and were subsequently diagnosed with COVID-19. He reported worsening shortness of breath over the 24 hours [employer], with cough, clear phlegm, fever, chills, runny nose. He had no GI sx. In the ED, sat was 88% on room air with tachypnea and tachycardia and mild respiratory distress. Labs were largely unremarkable except for Ferritin 1356 and CRP 5. Procalcitonin was 0.03. COVID IgG antibody was negative. CTPA showed mild scattered pulmonary parenchymal ground-glass infiltrates characteristic of COVID-19. No pulmonary emboli were seen. The right heart is borderline enlarged (my reading), with straightened septal border. He was given empiric antibiotics and Decadron, On 4 L NC oxygen, Sat sayra to 94%. He was admitted to Medicine for further management of acute respiratory failure secondary to COVID-19. Following admission, he had progressively increasing oxygen requirement. He was not given remdesivir nor convalescent plasma because he was felt to be out of the time range. On July 06 he was transferred to the ICU, requiring high-flow nasal cannula + NRBFM. He was started on CPAP and diuresed. He did well and transitioned to high-flow nasal cannula alone. He was then transferred out of the ICU on July 08. Echo done on July 09 was fairly normal, notable only for mildly increased LV wall thickness and grade 1 diastolic dysfunction. RV cavity size and systolic function were reportedly normal. RVSP estimate was 33 mm. chairman ceo Jul 13 his sats dropped and non-rebreather face mask was added to the high-flow nasal cannula. He was tachypneic but nonlabored, and saying that he was having difficulty breathing, although he didn?t look it. We therefore transferred him down to ICU for CPAP. On CPAP 10 cm/100%, respiratory rate was high 30s, tidal volumes in the 700s, sat 94%. We changed him to BiPAP and gave him small dose opoid. On BiPAP 10/14/90%, respiratory rate was 30, tidal volumes averaging 700 cc, minute volume averaging 21 L, sat was 94%. The patient looked quite comfortable, and mentation was fully intact. He didn?t like the BiPAP mask though, said he would prefer the high-flow with a non-rebreather. Therefore we changed him back to high-flow. On 60 L/100% high flow alone, he was satting 86-89%. Respiratory rate was high 20?s and he looked quite comfortable, with no increased work of breathing, other than that attributable to his respiratory rate. He did well on that overnight and yesterday. He?s been mostly staying in the recliner chair. Last night when he went bed and tried to turn prone, his Sat?s deteriorated and he got very SOB. He sat up in bed and added the NRBFM and his Sat came back up to 90%. This morning, his feeling of dyspnea waxes and wanes. See Vital Signs below. Currently on the HFNC 60L/100% + NRBFM at full flush, RR is high 20s, with Sat 93-94%. We were able to have a normal conversation, his speech was not limited by dyspnea. He?s breathing easy. Work of breathing is not increased, other than that attributable to his respiratory rate. No accessory muscle use. CVBG this morning showed 7.48/31/+1. He was reclining in the bedside chair with his legs crossed. He remains afebrile. Heart rate is 70s-90s. He has no JVD. Expiratory phase is normal. No edema. LABORATORY DATA: As below. Notably, sodium is down to 141. Glucose 179. D-dimer and ferritin are down. Trop and BNP negative. Urine Na 74. DUPLEX US of LEs: Negative for DVT. IMPRESSION: 1. Bilateral pulmonary infiltrates due to COVID pneumonia. On readmission to the ICU, we upped his steroids to Solumedrol 80mg bid, and added thiamine, Pepcid, Vit D, and Vit C, and increased Lovenox to ? mg/kg bid. 2. Elevated D-dimer. Duplex scan of lower extremities was negative. Troponin and BNP are negative (sufficient to r/o significant PE). 3. Acute hypoxemic respiratory failure secondary to the above. I?m OK with Sat?s in the mid 80s on the HFNC +/- NRBFM if he?s most comfortable on that. Opiates to control WOB. Proning didn?t go well last night. I?ve ordered [facility] Ambien to help him sleep. 4. Acute kidney injury. U-Na is normal. For now, I?ve discontinued his IV fluids. Not likely that he?s hypovolemic. 5. Hypernatremia. Resolved w D5W. 6. Metabolic alkalosis. Resolved w Diamox. 7. Hyperglycemia. We?ll start SS insulin if POC > 200. 8. ID. No antibiotics indicated at this time. Prognosis is guarded. So far he?s holding his own. I?ve told him to plan on another two weeks like this. Spoke to his on Jul 13. The patient and his requested transfer to [facility]. I called the transfer line at [facility] and was told that they are not accepting lateral transfers. Furthermore, they do not have the Regeneron monoclonal antibody, nor do they have any plans to get any this year. I discussed that with the patient and he accepted it. I told the patient's that his condition is very serious and his survival is not guaranteed. Critical care time: 45+ min. Physical Exam Vital Signs: Vital Signs: Last Vital Signs Temp 96.8 F 07/15/20 09:00 Pulse 96 07/15/20 12:00 Resp 17 07/15/20 12:00 BP 116/70 07/15/20 12:00 Pulse Ox 87 L 07/15/20 12:00 Body Mass Index 34.4 Objective Data Labs CBC & Chem 7: 07/15/20 05:32 07/15/20 05:32 Labs: Laboratory Results - last 24 hr 07/14/20 07/15/20 07/15/20 17:49 05:32 05:32 WBC 8.3 RBC 4.71 Hgb 14.1 Hct 42.8 MCV 90.9 MCH 29.9 MCHC 32.9 RDW 12.8 Plt Count 185 MPV 10.4 Immature Gran % (Auto) 1.1 H Neut % (Auto) 85.9 H Lymph % (Auto) 8.7 L [place] % (Auto) 4.2 Eos % (Auto) 0.0 Baso % (Auto) 0.1 Lymph # (Auto) 0.7 L [place] # (Auto) 0.4 Eos # (Auto) 0.0 Baso # (Auto) 0.0 Abs Immat Gran (auto) 0.09 H Absolute Neuts (auto) 7.1 Absolute Nucleated RBC 0.000 Nucleated RBC % (auto) 0.0 D-Dimer 2221 VBG pH VBG pCO2 VBG pO2 VBG HCO3 VBG O2 Saturation VBG Base Excess Sodium Potassium Chloride Carbon Dioxide Anion Gap BUN Creatinine Estim Creat Clear Calc Estimated GFR POC Glucose 193 H Random Glucose Calcium Ferritin Total Bilirubin AST ALT Alkaline Phosphatase Troponin I High Sens B-Natriuretic Peptide Total Protein Albumin Ur Random Sodium 07/15/20 07/15/20 07/15/20 05:32 05:32 05:32 WBC RBC Hgb Hct MCV MCH MCHC RDW Plt Count MPV Immature Gran % (Auto) Neut % (Auto) Lymph % (Auto) [place] % (Auto) Eos % (Auto) Baso % (Auto) Lymph # (Auto) [place] # (Auto) Eos # (Auto) Baso # (Auto) Abs Immat Gran (auto) Absolute Neuts (auto) Absolute Nucleated RBC Nucleated RBC % (auto) D-Dimer VBG pH 7.48 H VBG pCO2 31 VBG pO2 179 VBG HCO3 23 VBG O2 Saturation 98.0 VBG Base Excess 1.0 Sodium 141 Potassium 3.9 Chloride 106 Carbon Dioxide 23 Anion Gap 16 BUN 29 H Creatinine 0.87 Estim Creat Clear Calc 105.9 Estimated GFR > 60 POC Glucose Random Glucose 179 H Calcium 8.4 Ferritin 2210 H Total Bilirubin 1.1 H AST 29 ALT 76 H Alkaline Phosphatase 76 Troponin I High Sens 4.0 B-Natriuretic Peptide 12 Total Protein 6.4 L Albumin 3.3 L Ur Random Sodium 07/15/20 09:00 WBC RBC Hgb Hct MCV MCH MCHC RDW Plt Count MPV Immature Gran % (Auto) Neut % (Auto) Lymph % (Auto) [place] % (Auto) Eos % (Auto) Baso % (Auto) Lymph # (Auto) [place] # (Auto) Eos # (Auto) Baso # (Auto) Abs Immat Gran (auto) Absolute Neuts (auto) Absolute Nucleated RBC Nucleated RBC % (auto) D-Dimer VBG pH VBG pCO2 VBG pO2 VBG HCO3 VBG O2 Saturation VBG Base Excess Sodium Potassium Chloride Carbon Dioxide Anion Gap BUN Creatinine Estim Creat Clear Calc Estimated GFR POC Glucose Random Glucose Calcium Ferritin Total Bilirubin AST ALT Alkaline Phosphatase Troponin I High Sens B-Natriuretic Peptide Total Protein Albumin Ur Random Sodium 74.0 Microbiology Microbiology Results: Microbiology 07/03/20 17:50 Blood - Venous Blood Culture - Final No growth after 5 days. 07/03/20 17:17 Blood - Venous Blood Culture - Final No growth after 5 days. Progress Note: A&P Time Spent With Patient Time: Total time spent is greater than 50% in coordination of care (as documented) at patient's floor/unit and/or counseling patient: Total time spent with greater than 50% in coordination of care (as documented) at patient's floor/unit and/or counseling patient:: 0 Critical Care Time Critical Care Time (minutes): 60
[2020-07-15] MEDS: Zolpidem Tartrate 5 MG TABLET PO (22:31)
--- NOTE | 2020-07-15 23:13 | PC.NURSE ---
Shift eval 7p-11p: Patient alert and oriented, on high flow nasal cannula 60 liters, 100% & 100% NRB. Patient tolerating - desat to low 80's with activity or drinking. Recovers. Non productive cough. Discussed plan for night - Dr Goldberg encouraging patient to prone, patient reports he can't breath when proning and doesn't want to. Patient also not wanting to go on bipap. Afebrile. IV noted to be painful & leaking - attempted new IV. Unable to get new IV. Report given to Chaz KAUFMAN. After taking medications patient got into a coughing fit @ approx 2300, could not get O2Sat above 80-82 - RT called. Advised to go on BIPAP, but patient refused. Reports he has a hard time taking PO medications. O2sat back up to 92% - patient recovered @ 2315.
[2020-07-16] VITALS (29 sets, daily range): BP systolic 102–126; BP diastolic 56–91; PULSE 74–108; RESP 15–36; TEMP 35.6–36.8; O2SAT 86–100
[2020-07-16] MEDS: HYDROmorphone HCl 0.5 MG/0.5 ML SYRINGE IVPUSH (00:12)
[2020-07-16] MEDS: guaiFENesin 200 MG/10 ML 10 ML LIQUID PO (00:13)
[2020-07-16] MEDS: methylPREDNISolone Sod Succ/PF 125 MG/2 ML VIAL 80 MG IVPUSH (03:10)
[2020-07-16 05:47] LABS: Base Excess VBG -0.2 mmol/L; Basophils Percent Auto 0.1 % (0-2); HCO3 VBG 23 mmol/L; Hematocrit 41.4 % (42-52); Imm Gran Abs Auto 0.08 X10*3/uL (0.00-0.03); Imm Gran Pct Auto 1.1 % (0.0-0.4); Lymphocytes Absolute Auto 0.5 X10*3/uL (1.2-4.9); Lymphocytes Percent Auto 6.4 % (20-40); MANUAL DIFF FLAG SCAN; Mean Corpuscular HGB Conc 33.8 g/dl (31.0-36.0); Mean Corpuscular Hemoglobin 30.4 pg (27.0-33.0); Mean Corpuscular Volume 89.8 fL (80-98); Mean Platelet Volume 10.4 fL (9.4-12.4); Monocytes Absolute Auto 0.2 X10*3/uL (0.1-1.2); Monocytes Percent Auto 2.9 % (2-11); Neutrophils Absolute Auto 6.7 X10*3/uL (2.0-8.3); Neutrophils Percent Auto 89.5 % (45-73); PCO2 VBG 33 mmHg; PO2 VBG 102 mmHg; Platelet Count 181 X10*3/uL (160-400); Red Blood Count 4.61 X10*6/uL (4.60-5.80); Red Cell Distribution Width 12.5 % (11.0-16.0); SCAN SMEAR FLAG 1; White Blood Count 7.5 X10*3/uL (4.8-10.8); pH VBG 7.44 (7.32-7.43)
--- NOTE | 2020-07-16 06:01 | PC.NURSE ---
CARE ASSUMED 23:15..AWAKE ..ALERT..ORIENTED X3...DYSPNEIC AT HS...FREQUENT NON-PRODUCTIVE COUGH...SAO2 86-85% WITH 100% NRB-MASK AND 100% FIO2 HI-SUZY CANNULA...IV ACCESS OBTAINED AFTER MULTIPLE ATTEMPTS...#22 ANGIO/PRN ADAPTOR STARTED TO LEFT WRIST/FOREARM...MEDICATED WITH PRN DILAUDID FOR COUGH/WORK OF BREATHING AND PRN COUGH MED...GOOD EFFECT POST-MEDS..RESPIRATIONS EASY AT REST..RARE COUGH... MUCH BETTER NOW PER PATIENT...DESATS READILY WHEN TAKES OFF NRB MASK TO DRINK AND/OR WITH ACTIVITY...GRADUAL RECOVERY TO 90-92% WHEN RESTFUL AND BOTH HI-SUZY/NRB MASK IN PLACE...SPENT NIGHT OOB IN RECLINER...REFUSES BACK TO BED/PRONE POSITION/BIPAP...CURRENTLY RESTFUL...DENIES/OFFERS NO COMPLAINTS
[2020-07-16 06:07] LABS: D Dimer 1894 NG/ML
[2020-07-16 06:10] LABS: SLIDE REVIEW VERIFIED
[2020-07-16 06:12] LABS: Alanine Aminotransferase 95 U/L (0-40); Albumin Level 3.2 g/dL (3.5-5.0); Alkaline Phosphatase 73 U/L (39-117); Anion Gap 16 (12-20); Aspartate Amino Transferase 37 U/L (5-37); Bilirubin Total 1.5 mg/dL (0.0-1.0); Blood Urea Nitrogen 30 mg/dL (9-16); C Reactive Protein 5.68 mg/dL (< or = 0.50); Calcium 8.3 mg/dL (8.4-10.2); Carbon Dioxide 22 mmol/L (22-29); Chloride 104 mmol/L (96-108); Creatinine Clr Calc Pharmacy 102.4; Estimated Glomerular Filt Rate > 60; Glucose Random 177 mg/dL (60-115); Magnesium 2.4 mg/dL (1.6-2.6); Phosphorus 3.7 mg/dL (2.7-4.5); Potassium 4.5 mmol/l (3.3-5.1); Sodium 137 mmol/L (135-145); Total Protein 6.3 g/dL (6.5-8.0)
[2020-07-16 06:29] LABS: Procalcitonin 0.05 ng/mL
[2020-07-16 07:11] LABS: Ferritin 2122 ng/mL (20-250)
[2020-07-16] MEDS: 0.9 % Sodium Chloride Flush 3 ML SYRINGE IVFLUSH ×2 (08:20→16:19)
[2020-07-16] MEDS: Famotidine/PF 20 MG/2 ML VIAL 40 MG IVPUSH ×2 (08:49→20:12)
[2020-07-16] MEDS: Cholecalciferol (Vitamin D3) 25 MCG TABLET 50 MCG PO (08:49)
[2020-07-16] MEDS: Nystatin Oral Susp 500,000 UNIT/5 ML ORAL.SUSP 500000 UNIT PO ×4 (08:49→20:12)
[2020-07-16] MEDS: Ascorbic Acid 500 MG TABLET 1000 MG PO (08:49)
[2020-07-16] MEDS: Thiamine HCL 200 MG/2 ML VIAL IVPUSH ×2 (08:49→20:13)
[2020-07-16] MEDS: Zinc Sulfate 220 MG CAPSULE PO (08:49)
--- NOTE | 2020-07-16 10:03 | MHC.CLN ---
F/U POOR PO WILL START ENSURE TID TO INCREASE KCALS MONITOR PO INTAKE CLOSELY
[2020-07-16] MEDS: Enoxaparin Sodium 60 MG/0.6 ML SYRINGE 50 MG SUBCUT (12:29)
--- NOTE | 2020-07-16 12:50 | P.PNCC_ITS ---
Subjective Subjective Date of Service: 07/16/20 Interval History: 65-year-old with COVID-19 bilateral pneumonitis/ARDS still on the high-flow nasal oxygen and non-rebreather but with much less respiratory effort sustaining resting oxygen saturations up to 94% without respiratory effort or accessory muscle use No fever in other words no indication of secondary or nosocomial superinfection Physical Exam Vital Signs: Vital Signs: Last Vital Signs Temp 98.0 F 07/16/20 03:51 Pulse 80 07/16/20 12:00 Resp 20 07/16/20 12:00 BP 123/74 07/16/20 12:00 Pulse Ox 94 07/16/20 12:00 Body Mass Index 34.4 Const: Other: Awake and alert Diminished respiratory effort without accessory muscle use and no adventitious sounds Cardiac exam with normal S1 normal S2 and no gallops or murmurs Abdomen benign with no organomegaly and good bowel sounds Peripherally no edema Objective Data Labs CBC & Chem 7: 07/16/20 05:35 07/16/20 05:35 Labs: Laboratory Results - last 24 hr 07/16/20 07/16/20 07/16/20 05:35 05:35 05:35 WBC 7.5 RBC 4.61 Hgb 14.0 Hct 41.4 L MCV 89.8 MCH 30.4 MCHC 33.8 RDW 12.5 Plt Count 181 MPV 10.4 Immature Gran % (Auto) 1.1 H Neut % (Auto) 89.5 H Lymph % (Auto) 6.4 L [place] % (Auto) 2.9 Eos % (Auto) 0.0 Baso % (Auto) 0.1 Lymph # (Auto) 0.5 L [place] # (Auto) 0.2 Eos # (Auto) 0.0 Baso # (Auto) 0.0 Abs Immat Gran (auto) 0.08 H Absolute Neuts (auto) 6.7 Absolute Nucleated RBC 0.000 Nucleated RBC % (auto) 0.0 Smear Tech's Comments VERIFIED D-Dimer 1894 VBG pH VBG pCO2 VBG pO2 VBG HCO3 VBG O2 Saturation VBG Base Excess Sodium 137 Potassium 4.5 Chloride 104 Carbon Dioxide 22 Anion Gap 16 BUN 30 H Creatinine 0.90 Estim Creat Clear Calc 102.4 Estimated GFR > 60 Random Glucose 177 H Calcium 8.3 L Phosphorus 3.7 Magnesium 2.4 Ferritin 2122 H Total Bilirubin 1.5 H AST 37 ALT 95 H Alkaline Phosphatase 73 C-Reactive Protein 5.68 H Total Protein 6.3 L Albumin 3.2 L Procalcitonin 07/16/20 07/16/20 05:35 05:35 WBC RBC Hgb Hct MCV MCH MCHC RDW Plt Count MPV Immature Gran % (Auto) Neut % (Auto) Lymph % (Auto) [place] % (Auto) Eos % (Auto) Baso % (Auto) Lymph # (Auto) [place] # (Auto) Eos # (Auto) Baso # (Auto) Abs Immat Gran (auto) Absolute Neuts (auto) Absolute Nucleated RBC Nucleated RBC % (auto) Smear Tech's Comments D-Dimer VBG pH 7.44 H VBG pCO2 33 VBG pO2 102 VBG HCO3 23 VBG O2 Saturation 96.0 VBG Base Excess -0.2 Sodium Potassium Chloride Carbon Dioxide Anion Gap BUN Creatinine Estim Creat Clear Calc Estimated GFR Random Glucose Calcium Phosphorus Magnesium Ferritin Total Bilirubin AST ALT Alkaline Phosphatase C-Reactive Protein Total Protein Albumin Procalcitonin 0.05 Microbiology Microbiology Results: Microbiology 07/03/20 17:50 Blood - Venous Blood Culture - Final No growth after 5 days. 07/03/20 17:17 Blood - Venous Blood Culture - Final No growth after 5 days. Progress Note: A&P Assessment and plan (1) Acute respiratory distress syndrome (ARDS) due to COVID-19 virus: Status: Acute (2) Acute respiratory failure with hypoxia: Status: Acute (3) Hypoxia: Status: Acute (4) COVID-19: Status: Acute Assessment and Plan: Comfortable status quo and with diminishing work of breathing hopefully this is on the mend but there is no impending intubation at this point is just an observation Time Spent With Patient Time: Total time spent is greater than 50% in coordination of care (as documented) at patient's floor/unit and/or counseling patient: Total time spent with greater than 50% in coordination of care (as documented) at patient's floor/unit and/or counseling patient:: 30
--- NOTE | 2020-07-16 14:14 | PC.NURSE ---
pt a&ox3, oob to recliner per pt choice, pt on 100% non rebreather and 100% high flow, o2 sat 90-95%,HR SR, RR tachypneic, pt had ensure shake for lunch and water, pt uses urinal at bedside, plan to downgrade, will cont to monitor
--- NOTE | 2020-07-16 14:51 | MHC.CM.PN ---
Per MD rounds, pt on HF O2 at 100% and 100% non-rebreather. A&O. SOB with minimal exertion. Plan is to rest today. D/C plan remains home with services, but plan may change depending on hospital course. Will follow for d/c needs
[2020-07-16] MEDS: Zolpidem Tartrate 5 MG TABLET PO (20:13)
[2020-07-17] VITALS (13 sets, daily range): BP systolic 106–122; BP diastolic 60–74; PULSE 83–109; RESP 18–23; TEMP 36.4–37.3; O2SAT 90–95
[2020-07-17] MEDS: 0.9 % Sodium Chloride Flush 3 ML SYRINGE IVFLUSH ×3 (00:01→18:13)
[2020-07-17] MEDS: Enoxaparin Sodium 60 MG/0.6 ML SYRINGE 50 MG SUBCUT (00:01)
[2020-07-17] MEDS: HYDROmorphone HCl 0.5 MG/0.5 ML SYRINGE IVPUSH ×3 (03:16→22:01)
[2020-07-17] MEDS: Nystatin Oral Susp 500,000 UNIT/5 ML ORAL.SUSP 500000 UNIT PO ×2 (07:40→21:24)
[2020-07-17] MEDS: Famotidine/PF 20 MG/2 ML VIAL 40 MG IVPUSH ×2 (07:40→21:24)
--- NOTE | 2020-07-17 08:59 | HO.PM.IMPN ---
Subjective Subjective Date of Service: 07/18/20 Interval History: THE ACUTE HYPOXEMIC RESPIRATORY FAILURE Review of Systems Patient still short of breath, but says his work of breathing seems better. Still on high-flow Denies any chest pain or abdominal pain Physical Exam Vital Signs: Vital Signs: Last Vital Signs Temp 97.9 F 07/17/20 03:49 Pulse 92 07/17/20 07:55 Resp 20 07/17/20 07:55 BP 106/74 07/17/20 07:55 Pulse Ox 93 07/17/20 07:55 Body Mass Index 34.4 Physical exam: Constitutional: Not in acute distress. Cvs: rrr, [id number] , no murmur res: fair air entry , no rales or wheezing abd: no rebound or guarding ,nt, bs present. ext pulses present , no cyanosis neuro: axo3 , nonfocal. Objective Data Current Medications Generic Name Dose Route Start Last Admin Trade Name Freq PRN Reason Stop Dose Admin Acetaminophen 650 mg 07/03/20 21:05 07/09/20 06:03 Acetaminophen 325 Mg Tablet PO 650 mg Q6H PRN Administration Pain, Mild (Pain Scale 1-3) Enoxaparin Sodium 50 mg 07/14/20 00:00 07/17/20 00:01 Enoxaparin Sodium 60 Mg/0.6 Ml Syringe SUBCUT 50 mg Q12H ASCENCION Administration Famotidine 40 mg 07/13/20 21:00 07/17/20 07:40 Famotidine/Pf 20 Mg/2 Ml Vial IVPUSH 40 mg BID ASCENCION Administration Hydromorphone HCl 0.5 mg 07/13/20 11:30 07/17/20 03:16 Hydromorphone Hcl 0.5 Mg/0.5 Ml Syringe IVPUSH 0.5 mg Q1H PRN Administration WOB Nystatin 500,000 unit 07/13/20 17:15 07/17/20 07:40 Nystatin Oral Susp 500,000 Unit/5 Ml Oral.Susp PO 500,000 unit QID ASCENCION Administration Protocol Sodium Chloride 3 ml 07/04/20 00:00 07/17/20 07:40 0.9 % Sodium Chloride Flush 3 Ml Syringe IVFLUSH 3 ml QSHIFT ASCENCION Administration Thiamine HCl 200 mg 07/13/20 15:25 07/16/20 20:13 Thiamine Hcl 200 Mg/2 Ml Vial IVPUSH 200 mg BID ASCENCION Administration Zolpidem Tartrate 5 mg 07/14/20 21:00 07/16/20 20:13 Zolpidem Tartrate 5 Mg Tablet PO 5 mg BEDTIME ASCENCION Administration Labs CBC & Chem 7: 07/16/20 05:35 07/16/20 05:35 Microbiology Microbiology Results: Microbiology 07/03/20 17:50 Blood - Venous Blood Culture - Final No growth after 5 days. 07/03/20 17:17 Blood - Venous Blood Culture - Final No growth after 5 days. Assessment and Plan (1) Acute respiratory distress syndrome (ARDS) due to COVID-19 virus: Status: Acute (2) Acute respiratory failure with hypoxia: Status: Acute Assessment and Plan: 1.COVID-19 bilateral pneumonitis/ARDS still on the high-flow nasal oxygen and non-rebreather but with much less respiratory effort sustaining resting oxygen saturations up to 94% without respiratory effort or accessory muscle use. Patient was transfer from ICU yesterday Shortness of breath seems slightly better as per patient continue famotidine ,lovenox, high flow/nbrm, completed 10 days dexamethsone sars ab pending Will continue to monitor.
[2020-07-17] MEDS: Enoxaparin Sodium 80 MG/0.8 ML SYRINGE SUBCUT ×2 (09:33→21:24)
[2020-07-17] MEDS: Thiamine HCL 100 MG TABLET 200 MG PO (11:02)
[2020-07-17 13:18] LABS: SARS COV2 IgG Positive (Negative)
--- NOTE | 2020-07-17 15:52 | CONS_ITS ---
DATE OF SERVICE: 07/17/2020 CHIEF COMPLAINT: Shortness of breath. HISTORY OF PRESENT ILLNESS: Mr. Gold is a 65-year-old gentleman with an unremarkable past medical history, apparently was diagnosed with COVID-19 back on the beginning of June. He did have positive sick contacts in his home. Ultimately, developed worsening shortness of breath, fever, chills, was brought to the [facility], where his ferritin level was significantly elevated, lactic acid elevated, LDH elevated, and concerning inflammation due to COVID. He was also found to be significantly hypoxic down to 80% on room air. He was placed on antibiotics, also given Decadron and due to his timeline, apparently, he was not a candidate for remdesivir. He was admitted to the ICU with acute hypoxic respiratory failure. It did require noninvasive ventilation while in the ICU. Ultimately, the patient was on Decadron. His D-dimer was above 3000, so therefore he was placed on half dose of therapeutic Lovenox. He was also maintained on the steroids. Back on the , his SARS-CoV-2 antibodies were checked negative. However, he did not receive any convalescent plasma at the time. Now, the patient is starting to feel a little bit better, although he is still on a non-rebreather and 100% high-flow. He is going to try to perform awake proning. We will recheck his antibodies now to see if he has made a response and based on the fact that he had elevated D-dimer, we will put him on full dose anticoagulation. REVIEW OF SYSTEMS: Ten systems reviewed. Complains of just fatigue. His respiratory symptoms as stated above. Denies any cardiac symptoms. Denies any GI or symptoms. He is trying to snack a lot and eat to stay nourished. Denies any musculoskeletal symptoms. Denies any rashes. The rest of the 10-organ system is negative. PAST MEDICAL HISTORY: Pretty unremarkable, except for now COVID pneumonia. SOCIAL HISTORY: Alcohol few times a week. He is a former smoker. ALLERGIES: NO KNOWN DRUG ALLERGIES. MEDICATIONS: He was not really taking any medications. As far as current medications in-house, he is on Lovenox 50 mg subcu b.i.d. He is getting Dilaudid for pain, thiamine, nystatin, Pepcid, and zolpidem. PHYSICAL EXAMINATION: GENERAL: Pleasant gentleman. HEENT: Pupils are equal and reactive to light. Oropharynx clear. NECK: Supple. Looks to be comfortable, although fatigue. No evidence of any respiratory distress. He is speaking in full sentences. VITAL SIGNS: Appear to be okay, saturating 93% to 98% on 100% high-flow and also 100% non-rebreather. LUNGS: Diminished. CARDIAC: Regular rhythm. ABDOMEN: Positive bowel sounds. Soft. EXTREMITIES: No clubbing or cyanosis. LABORATORY DATA: Again, SARS-CoV-2 antibody IgG was negative back on the , we are going to re-check that. Chemistries significant for BUN of 30, creatinine of 0.9. Ferritin is still elevated at 2100. C-reactive protein is still elevated at 5.68. White count is normal. Hemoglobin is stable. ASSESSMENT: Mr. Gold is a 65-year-old gentleman with severe COVID, acute respiratory failure. IMPRESSION: 1. Acute hypoxic respiratory failure secondary to a combination of COVID pneumonia and also likely micro-thrombotic disease. The patient did have a CT scan of the chest that I personally reviewed demonstrating some areas of patchy ground-glass opacities, but disproportional to the point that he does not explain the degree of hypoxia that he has. He has the typical happy hypoxic where the significant hypoxia does not result in significant symptoms. This is more suggestive of a perfusion defect. Also, looking at the CT scan, there is a dilation of pulmonary trunk suggesting a pulmonary hypertension, which may be playing a toll as well. RECOMMENDATIONS: 1. Restart Solu-Medrol 60 mg IV twice a day. 2. Increase Lovenox to therapeutic dose. 3. Checking SARS-CoV-2 antibodies to see if he needs any convalescent plasma. At this point, he already probably has antibodies, although with the prolonged course of steroids, we may have suppress his ability to mount a response to the virus. Therefore, resulting in a prolonged viral infection. 4. COVID pneumonia. He was treated with antibiotics already. White count is normal. No need for antibiotics at this time. 5. Pulmonary hypertension, appears to have some degree of pulmonary hypertension based on the CTA. He also did have an echocardiogram demonstrating normal right ventricular pressures. Recommendation, consider sildenafil if the symptoms did not improve and the hypoxia does not improve. Further recommendation based on forthcoming data. MD AMINTA Oliveira/KURTIS / [phone]
[2020-07-17] MEDS: Zolpidem Tartrate 5 MG TABLET PO (21:24)
[2020-07-17] MEDS: methylPREDNISolone Sod Succ/PF 125 MG/2 ML VIAL 60 MG IVPUSH (22:01)
[2020-07-18] VITALS (13 sets, daily range): BP systolic 107–128; BP diastolic 54–65; PULSE 9–108; RESP 18–22; TEMP 36.3–36.7; O2SAT 89–95
[2020-07-18] MEDS: 0.9 % Sodium Chloride Flush 3 ML SYRINGE IVFLUSH ×4 (00:03→20:44)
[2020-07-18] MEDS: Famotidine/PF 20 MG/2 ML VIAL 40 MG IVPUSH ×2 (09:10→20:43)
[2020-07-18] MEDS: Nystatin Oral Susp 500,000 UNIT/5 ML ORAL.SUSP 500000 UNIT PO ×4 (09:11→20:43)
[2020-07-18] MEDS: Thiamine HCL 100 MG TABLET 200 MG PO (09:12)
[2020-07-18] MEDS: Enoxaparin Sodium 80 MG/0.8 ML SYRINGE SUBCUT ×2 (09:13→20:43)
[2020-07-18] MEDS: guaiFENesin LA 600 MG TAB.ER.12H PO ×2 (09:14→20:42)
--- NOTE | 2020-07-18 09:22 | PM.PNPUL ---
Subjective Subjective Date of Service: 07/18/20 Principal diagnosis: COVID - ARDS Interval history: Seen and examined. Still on 100% HF and NRB. Increased Lovenox and restarted Solumedrol. SARs CoV2 Ab positive. Objective Data Labs CBC & Chem 7: 07/16/20 05:35 07/16/20 05:35 Labs: Laboratory Results - last 24 hr 07/17/20 09:15 SARS-CoV-2 IgG Ab Positive Microbiology Microbiology Results: Microbiology 07/03/20 17:50 Blood - Venous Blood Culture - Final No growth after 5 days. 07/03/20 17:17 Blood - Venous Blood Culture - Final No growth after 5 days. Review of Systems Constitutional: Reports weakness Eyes: Denies loss of vision Cardiovascular: Reports dyspnea on exertion Respiratory: Reports cough and Reports dyspnea on exertion Gastrointestinal: Denies abdominal pain and Denies change in bowel habits Denies focal weakness, Denies loss of vision and Reports weakness Physical Exam Vital Signs: Vital Signs: Last Vital Signs Temp 97.8 F 07/18/20 03:34 Pulse 86 07/18/20 08:00 Resp 20 07/18/20 08:21 BP 113/57 L 07/18/20 08:00 Pulse Ox 94 07/18/20 08:00 Body Mass Index 34.4 Const: General: alert HENMT: General nose exam: Abnormal external nose present and Nasal discharge present Eyes: Pupils: Equal, round and reactive pupils present Neck: Neck: Yes normal visual inspection, Yes full ROM and Yes no lymphadenopathy Chest: Chest palpation & inspection: normal inspection of the chest Resp: Auscultation: rales diffuse and diminished lung sounds Cardio: Rate: regular rate Rhythm: regular rhythm Heart sounds: S1 normal heart sound present and S2 normal heart sound present GI: Palpation (GI): Soft to palpation and nontender Auscultation: normal bowel sounds : General: Yes no CVA tenderness Back/Spine/Pelvis: Back: no CVA tenderness Skin: General skin exam: rashes and/or lesions noted Neuro: Cranial nerves: Yes Equal, round and reactive pupils present Assessment and Plan Assessment and plan (1) Acute respiratory distress syndrome (ARDS) due to COVID-19 virus: Status: Acute Assessment and Plan: ok to wean o2 to keep pox> 90% Continue solumedrol Continue lovenox Awake proning/ CPT Will repeat CXR (2) Acute respiratory failure with hypoxia: Status: Acute Time Spent With Patient Time: Total time spent is greater than 50% in coordination of care (as documented) at patient's floor/unit and/or counseling patient: Time with patient: 15 - 24 minutes
--- NOTE | 2020-07-18 09:26 | XR_ITS ---
EXAMINATION: XR CHEST CLINICAL INFORMATION: Coccygeal COMPARISON: July 13, 2020 and July 06, 2020 TECHNIQUE: AP portable view of the chest was obtained. FINDINGS: There is no significant change in bilateral regions of interstitial and airspace disease heart normal size. No evidence of pulmonary edema. No pneumothorax or significant pleural effusion appreciated. XR/XR chest 1V IMPRESSION: No significant change in bilateral disease.
[2020-07-18] MEDS: methylPREDNISolone Sod Succ/PF 125 MG/2 ML VIAL 60 MG IVPUSH ×2 (09:37→20:43)
--- NOTE | 2020-07-18 10:47 | PC.NURSE ---
medicated pt with guiafenisen and encouraged PO fluid. At 1030 performed chest percussion with pt with intermittent use of incentive spirometer. Pt was able to cough, oxygen saturation never below 89 during proceedure. Pt able to move spirometer esther to 1500ml. Encouraged pt to use spirometer hourly, will monitor and encourage as needed.
--- NOTE | 2020-07-18 11:57 | MHC.CLN ---
F/U DIET RX: REGULAR-APPROPRIATE PT RECEIVING ENSURE TID TO INCREASE KCALS MONITOR PO INTAKE CLOSELY FOLLOWING
--- NOTE | 2020-07-18 13:17 | MHC.CM.PN ---
Patient continues to need high flow O2, difficulty weaning. Also on IV Solu-Medrol. Discharge plan is home no services, will provide transport. CM will continue to follow patient for discharge needs.
--- NOTE | 2020-07-18 16:30 | HO.PM.IMPN ---
Subjective Subjective Date of Service: 07/19/20 Interval History: Acute hypoxemic respiratory failure secondary to COVID. Review of Systems Patient is still on high-flow, says breathing slightly better than yesterday, denies any cough or fever or chills Physical Exam Vital Signs: Vital Signs: Last Vital Signs Temp 97.5 F 07/18/20 12:34 Pulse 96 07/18/20 12:34 Resp 22 H 07/18/20 15:55 BP 113/54 L 07/18/20 12:34 Pulse Ox 90 L 07/18/20 12:34 Body Mass Index 34.4 Physical exam : Constitutional: Not in acute distress. Cvs: [id number], [id number] , no murmur res: Fair air entry, no rales or wheezing abd: no rebound or guarding ,nt, bs present. ext pulses present , no cyanosis neuro: axo3 , nonfocal. Objective Data Current Medications Generic Name Dose Route Start Last Admin Trade Name Freq PRN Reason Stop Dose Admin Acetaminophen 650 mg 07/03/20 21:05 07/09/20 06:03 Acetaminophen 325 Mg Tablet PO 650 mg Q6H PRN Administration Pain, Mild (Pain Scale 1-3) Enoxaparin Sodium 80 mg 07/17/20 10:00 07/18/20 09:13 Enoxaparin Sodium 80 Mg/0.8 Ml Syringe SUBCUT 80 mg Q12H ASCENCION Administration Famotidine 40 mg 07/13/20 21:00 07/18/20 09:10 Famotidine/Pf 20 Mg/2 Ml Vial IVPUSH 40 mg BID ASCENCION Administration Guaifenesin 600 mg 07/18/20 08:51 07/18/20 09:14 Guaifenesin La 600 Mg Tab.Er.12h PO 600 mg BID PRN Administration Cough Methylprednisolone Sodium Succinate 60 mg 07/17/20 22:00 07/18/20 09:37 Methylprednisolone Sod Succ/Pf 125 Mg/2 Ml Vial IVPUSH 60 mg Q12H ASCENCION Administration Nystatin 500,000 unit 07/13/20 17:15 07/18/20 14:42 Nystatin Oral Susp 500,000 Unit/5 Ml Oral.Susp PO 500,000 unit QID ASCENCION Administration Protocol Sodium Chloride 3 ml 07/04/20 00:00 07/18/20 15:23 0.9 % Sodium Chloride Flush 3 Ml Syringe IVFLUSH 3 ml QSHIFT ASCENCION Administration Thiamine HCl 200 mg 07/17/20 10:45 07/18/20 09:12 Thiamine Hcl 100 Mg Tablet PO 200 mg DAILY ASCENCION Administration Zolpidem Tartrate 5 mg 07/14/20 21:00 07/17/20 21:24 Zolpidem Tartrate 5 Mg Tablet PO 5 mg BEDTIME ASCENCION Administration Labs CBC & Chem 7: 07/16/20 05:35 07/16/20 05:35 Microbiology Microbiology Results: Microbiology 07/03/20 17:50 Blood - Venous Blood Culture - Final No growth after 5 days. 07/03/20 17:17 Blood - Venous Blood Culture - Final No growth after 5 days. Assessment and Plan (1) Acute respiratory distress syndrome (ARDS) due to COVID-19 virus: Status: Acute (2) Acute respiratory failure with hypoxia: Status: Acute Assessment and Plan: 1.COVID-19 bilateral pneumonitis/ARDS still on the high-flow nasal oxygen and non-rebreather but with much less respiratory effort sustaining resting oxygen saturations up to 94% without respiratory effort or accessory muscle use. Patient was transfer from ICU yesterday Shortness of breath seems slightly better as per patient continue famotidine ,lovenox, high flow/nbrm, completed 10 days dexamethsone sars ab positive Will continue to monitor. (3) COVID-19: Status: Acute (4) Hypoxia: Status: Acute
[2020-07-18] MEDS: Zolpidem Tartrate 5 MG TABLET PO (20:42)
[2020-07-19] VITALS (10 sets, daily range): BP systolic 107–132; BP diastolic 48–70; PULSE 83–96; RESP 18–24; TEMP 36.3–36.8; O2SAT 88–95
[2020-07-19] MEDS: methylPREDNISolone Sod Succ/PF 125 MG/2 ML VIAL 60 MG IVPUSH ×2 (08:44→20:41)
[2020-07-19] MEDS: Famotidine/PF 20 MG/2 ML VIAL 40 MG IVPUSH ×2 (08:47→20:42)
[2020-07-19] MEDS: Nystatin Oral Susp 500,000 UNIT/5 ML ORAL.SUSP 500000 UNIT PO ×4 (08:47→20:42)
[2020-07-19] MEDS: Thiamine HCL 100 MG TABLET 200 MG PO (08:54)
[2020-07-19] MEDS: Enoxaparin Sodium 80 MG/0.8 ML SYRINGE SUBCUT ×2 (08:55→20:42)
[2020-07-19] MEDS: 0.9 % Sodium Chloride Flush 3 ML SYRINGE IVFLUSH ×3 (08:57→20:42)
--- NOTE | 2020-07-19 09:31 | PM.PNPUL ---
Subjective Subjective Date of Service: 07/19/20 Principal diagnosis: COVID - ARDS Interval history: The patient was seen and examined. Overall the patient is about the same. Still on the high-flow and also non-rebreather. Hoping to be able to decrease some of the oxygen use. Therefore, will take a break from the non-rebreather at and just a on high-flow for some time. In the meantime given 1 dose of Lasix to see if we can provide him with a more compliant lung. His chest x-ray from yesterday was about the same, with reticulonodular opacities left more than right. Objective Data Labs CBC & Chem 7: 07/16/20 05:35 07/16/20 05:35 Microbiology Microbiology Results: Microbiology 07/03/20 17:50 Blood - Venous Blood Culture - Final No growth after 5 days. 07/03/20 17:17 Blood - Venous Blood Culture - Final No growth after 5 days. Review of Systems Constitutional: Reports weakness Eyes: Denies loss of vision Denies focal weakness, Denies loss of vision and Reports weakness Physical Exam Vital Signs: Vital Signs: Last Vital Signs Temp 97.8 F 07/19/20 08:00 Pulse 87 07/19/20 08:00 Resp 20 07/19/20 08:02 BP 107/48 L 07/19/20 08:00 Pulse Ox 93 07/19/20 08:00 Body Mass Index 34.4 Const: General: alert and tired appearing Eyes: Pupils: Equal, round and reactive pupils present Neck: Neck: Yes normal visual inspection, Yes full ROM and Yes no lymphadenopathy Chest: Chest palpation & inspection: normal inspection of the chest Resp: Auscultation: rales and diminished lung sounds Cardio: Rate: regular rate Rhythm: regular rhythm Heart sounds: S1 normal heart sound present and S2 normal heart sound present GI: Palpation (GI): Soft to palpation and nontender Auscultation: normal bowel sounds Skin: General skin exam: rashes and/or lesions noted Neuro: Cranial nerves: Yes Equal, round and reactive pupils present Assessment and Plan Assessment and plan (1) Acute respiratory distress syndrome (ARDS) due to COVID-19 virus: Status: Acute Assessment and Plan: Continue Solu-Medrol at current dose Trial Lasix x1 Continue Lovenox Awake proning and CPT (2) Acute respiratory failure with hypoxia: Status: Acute Assessment and Plan: Continue high-flow, removed non-rebreather for now to assess oxygen requirements. (3) COVID-19: Status: Acute Time Spent With Patient Time: Total time spent is greater than 50% in coordination of care (as documented) at patient's floor/unit and/or counseling patient: Time with patient: 15 - 24 minutes
[2020-07-19] MEDS: Furosemide 20 MG/2 ML VIAL IVPUSH (10:36)
[2020-07-19] MEDS: Acetaminophen 325 MG TABLET 650 MG PO (12:43)
--- NOTE | 2020-07-19 14:50 | HO.PM.IMPN ---
Subjective Subjective Date of Service: 07/19/20 Interval History: Acute hypoxemic respiratory failure secondary to Covid Review of Systems Says shortness of breath slowly improving, denies any chest pain or abdominal pain or fever or chills Seem that work of breathing is improving slowly Physical Exam Vital Signs: Vital Signs: Last Vital Signs Temp 97.8 F 07/19/20 08:00 Pulse 88 07/19/20 11:09 Resp 22 H 07/19/20 12:06 BP 118/55 L 07/19/20 11:09 Pulse Ox 90 L 07/19/20 11:09 Body Mass Index 34.4 Physical exam: Constitional : Still on high-flow, could able to speak better today. HEENT: Eyes: Anicteric, no discharge Neck: Supple Cvs: rrr, [id number] , no murmur res: fair air entry , diminshed at bases. abd: no rebound or guarding ,nt, bs present. ext pulses present , no cyanosis neuro: axo3 , nonfocal. Objective Data Current Medications Generic Name Dose Route Start Last Admin Trade Name Cameronq PRN Reason Stop Dose Admin Acetaminophen 650 mg 07/03/20 21:05 07/19/20 12:43 Acetaminophen 325 Mg Tablet PO 650 mg Q6H PRN Administration Pain, Mild (Pain Scale 1-3) Enoxaparin Sodium 80 mg 07/17/20 10:00 07/19/20 08:55 Enoxaparin Sodium 80 Mg/0.8 Ml Syringe SUBCUT 80 mg Q12H ASCENCION Administration Famotidine 40 mg 07/13/20 21:00 07/19/20 08:47 Famotidine/Pf 20 Mg/2 Ml Vial IVPUSH 40 mg BID ASCENCION Administration Guaifenesin 600 mg 07/18/20 08:51 07/18/20 20:42 Guaifenesin La 600 Mg Tab.Er.12h PO 600 mg BID PRN Administration Cough Methylprednisolone Sodium Succinate 60 mg 07/17/20 22:00 07/19/20 08:44 Methylprednisolone Sod Succ/Pf 125 Mg/2 Ml Vial IVPUSH 60 mg Q12H ASCENCION Administration Nystatin 500,000 unit 07/13/20 17:15 07/19/20 12:39 Nystatin Oral Susp 500,000 Unit/5 Ml Oral.Susp PO 500,000 unit QID ASCENCION Administration Protocol Sodium Chloride 3 ml 07/04/20 00:00 07/19/20 08:57 0.9 % Sodium Chloride Flush 3 Ml Syringe IVFLUSH 3 ml QSHIFT ASCENCION Administration Thiamine HCl 200 mg 07/17/20 10:45 07/19/20 08:54 Thiamine Hcl 100 Mg Tablet PO 200 mg DAILY ASCENCION Administration Zolpidem Tartrate 5 mg 07/14/20 21:00 07/18/20 20:42 Zolpidem Tartrate 5 Mg Tablet PO 5 mg BEDTIME ASCENCION Administration Labs CBC & Chem 7: 07/16/20 05:35 07/16/20 05:35 Microbiology Microbiology Results: Microbiology 07/03/20 17:50 Blood - Venous Blood Culture - Final No growth after 5 days. 07/03/20 17:17 Blood - Venous Blood Culture - Final No growth after 5 days. Assessment and Plan (1) Acute respiratory distress syndrome (ARDS) due to COVID-19 virus: Status: Acute (2) Acute respiratory failure with hypoxia: Status: Acute Assessment and Plan: 1.COVID-19 bilateral pneumonitis/ARDS still on the high-flow nasal oxygen and non-rebreather but with much less respiratory effort sustaining resting oxygen saturations up to 94% without respiratory effort or accessory muscle use-went to ICU for above-where he was managed with high-flow as well as non-rebreather, and subsequently Patient was transfer from ICU. Shortness of breath seems slightly better as per patient continue solumedol ,famotidine ,lovenox, high flow/nbrm Awake proning and CPT will check labs-ferritin , ldh , crp in am . sars ab positive trial of lasix as per pulm Will continue to monitor. (3) Hypoxia: Status: Acute (4) COVID-19: Status: Acute
[2020-07-19] MEDS: Zolpidem Tartrate 5 MG TABLET PO (20:42)
[2020-07-19] MEDS: guaiFENesin LA 600 MG TAB.ER.12H PO (20:42)
[2020-07-20] VITALS (13 sets, daily range): BP systolic 110–127; BP diastolic 55–78; PULSE 92–104; RESP 12–22; TEMP 36–37.1; O2SAT 88–96
[2020-07-20 07:25] LABS: Anion Gap 15 (12-20); Blood Urea Nitrogen 27 mg/dL (9-16); Calcium 8.1 mg/dL (8.4-10.2); Carbon Dioxide 29 mmol/L (22-29); Chloride 100 mmol/L (96-108); Creatinine Clr Calc Pharmacy 112.4; Estimated Glomerular Filt Rate > 60; Glucose Random 159 mg/dL (60-115); Potassium 4.6 mmol/l (3.3-5.1); Sodium 139 mmol/L (135-145)
[2020-07-20] MEDS: 0.9 % Sodium Chloride Flush 3 ML SYRINGE IVFLUSH ×3 (08:17→23:47)
[2020-07-20] MEDS: Enoxaparin Sodium 80 MG/0.8 ML SYRINGE SUBCUT ×2 (08:17→20:38)
[2020-07-20] MEDS: Nystatin Oral Susp 500,000 UNIT/5 ML ORAL.SUSP 500000 UNIT PO ×4 (08:17→20:38)
[2020-07-20] MEDS: Famotidine/PF 20 MG/2 ML VIAL 40 MG IVPUSH ×2 (08:17→20:38)
[2020-07-20] MEDS: methylPREDNISolone Sod Succ/PF 125 MG/2 ML VIAL 60 MG IVPUSH ×2 (08:18→20:37)
[2020-07-20] MEDS: Thiamine HCL 100 MG TABLET 200 MG PO (08:18)
--- NOTE | 2020-07-20 09:21 | XR_ITS ---
EXAMINATION: XR CHEST CLINICAL INFORMATION: COVID+. Hypoxia. COMPARISON: Chest radiographs 07/18/2020, 07/13/2020 TECHNIQUE: Portable upright AP view of the chest is performed at 1000 hours. FINDINGS: There is suspicion of small right apical pneumothorax with fine pleural line. There are also some artifacts overlying the upper chest from linen and tubing. Recommend follow up. Again, there are some bibasilar opacities similar to prior study. The vascularity is normal. The cardiac and hilar and mediastinal contours and bony structures are stable. Results are called to Dr. Waite at 1732 hours. XR/XR chest 1V IMPRESSION: 1. Suspect small right apical pneumothorax. Recommend follow-up. 2. Bibasilar opacities similar to prior study. Vascularity normal.
--- NOTE | 2020-07-20 09:22 | P.PNPL_ITS ---
Subjective Subjective Date of Service: 07/20/20 Principal diagnosis: COVID - ARDS Interval history: The patient was seen on exam. He was of said that he did not get the percussion yesterday. Still on the 100% high-flow is still using the non-rebreather. He was able to keep the non-rebreather off most of the day yesterday. Objective Data Labs CBC & Chem 7: 07/16/20 05:35 07/20/20 05:32 Labs: Laboratory Results - last 24 hr 07/20/20 05:32 Sodium 139 Potassium 4.6 Chloride 100 Carbon Dioxide 29 Anion Gap 15 BUN 27 H Creatinine 0.82 Estim Creat Clear Calc 112.4 Estimated GFR > 60 Random Glucose 159 H Calcium 8.1 L Microbiology Microbiology Results: Microbiology 07/03/20 17:50 Blood - Venous Blood Culture - Final No growth after 5 days. 07/03/20 17:17 Blood - Venous Blood Culture - Final No growth after 5 days. Review of Systems Constitutional: Reports weakness Eyes: Denies loss of vision Cardiovascular: Denies chest pain and Reports dyspnea Respiratory: Reports cough and Reports dyspnea Denies focal weakness, Denies loss of vision and Reports weakness Physical Exam Vital Signs: Vital Signs: Last Vital Signs Temp 98.8 F 07/20/20 08:00 Pulse 100 07/20/20 08:00 Resp 22 H 07/20/20 09:07 BP 123/58 L 07/20/20 08:00 Pulse Ox 89 L 07/20/20 08:00 Body Mass Index 34.4 Const: General: alert Eyes: Pupils: Equal, round and reactive pupils present Neck: Neck: Yes normal visual inspection, Yes full ROM and Yes no lymphadenopathy Chest: Chest palpation & inspection: normal inspection of the chest Resp: Auscultation: crackles, wheezes and diminished lung sounds Cardio: Rate: regular rate Rhythm: regular rhythm Heart sounds: S1 n ormal heart sound present and S2 normal heart sound present GI: Palpation (GI): Soft to palpation and nontender Auscultation: normal bowel sounds : General: Yes no CVA tenderness Back/Spine/Pelvis: Back: no CVA tenderness Skin: General skin exam: rashes and/or lesions noted Neuro: Cranial nerves: Yes Equal, round and reactive pupils present Assessment and Plan Assessment and plan (1) Acute respiratory distress syndrome (ARDS) due to COVID-19 virus: Status: Acute Assessment and Plan: Cont HF CPT with manual percussion Awake proning Add inhaler Additional lasic today Repeat CXR today Cont Lovenox BID (2) Acute respiratory failure with hypoxia: Status: Acute (3) COVID-19: Problem details: +SARS Vov2 ab Status: Acute Time Spent With Patient Time: Total time spent is greater than 50% in coordination of care (as documented) at patient's floor/unit and/or counseling patient: Time with patient: 15 - 24 minutes
[2020-07-20] MEDS: Acetaminophen 325 MG TABLET 650 MG PO (12:16)
--- NOTE | 2020-07-20 13:13 | HO.PM.IMPN ---
Subjective Subjective Date of Service: 07/20/20 Interval History: Seen in follow-up for acute hypoxic respiratory failure due to COVID infection and required some ICU level but did not arise to mechanical ventilation, just. He remains hypoxic and still on high flow and NRB. Review of Systems Gen: no fever Resp: + sob, no cough CV: no chest, no العلي, no leg edema GI: No n/v, no abd pain Neuro: No confusion Physical Exam Vital Signs: Vital Signs: Last Vital Signs Temp 97.9 F 07/20/20 12:00 Pulse 104 H 07/20/20 12:00 Resp 18 07/20/20 12:53 BP 122/55 L 07/20/20 12:00 Pulse Ox 90 L 07/20/20 12:00 Body Mass Index 34.4 Const: General: cooperative and comfortable Resp: Effort & Inspection: normal respiratory effort and able to speak in complete sentences Cardio: Jugular venous distension: no JVD Rhythm: regular rhythm Heart sounds: S1 normal heart sound present and S2 normal heart sound present GI: Palpation (GI): Soft to palpation Percussion: Yes normal to percussion Objective Data Current Medications Generic Name Dose Route Start Last Admin Trade Name Freq PRN Reason Stop Dose Admin Acetaminophen 650 mg 07/03/20 21:05 07/20/20 12:16 Acetaminophen 325 Mg Tablet PO 650 mg Q6H PRN Administration Pain, Mild (Pain Scale 1-3) Albuterol Sulfate 2 puff 07/20/20 09:26 Albuterol Sulfate 90 Mcg 8 Gm Inhaler INHALE RQ4H PRN Cough Enoxaparin Sodium 80 mg 07/17/20 10:00 07/20/20 08:17 Enoxaparin Sodium 80 Mg/0.8 Ml Syringe SUBCUT 80 mg Q12H ASCENCION Administration Famotidine 40 mg 07/13/20 21:00 07/20/20 08:17 Famotidine/Pf 20 Mg/2 Ml Vial IVPUSH 40 mg BID ACSENCION Administration Fluticasone/Vilanterol 1 puff 07/21/20 08:00 Fluticasone/Vilanterol 200/25 Blst.W.Dev INHALE RDAILY ASCENCION Guaifenesin 600 mg 07/18/20 08:51 07/19/20 20:42 Guaifenesin La 600 Mg Tab.Er.12h PO 600 mg BID PRN Administration Cough Methylprednisolone Sodium Succinate 60 mg 07/17/20 22:00 07/20/20 08:18 Methylprednisolone Sod Succ/Pf 125 Mg/2 Ml Vial IVPUSH 60 mg Q12H ASCENCION Administration Nystatin 500,000 unit 07/13/20 17:15 07/20/20 08:17 Nystatin Oral Susp 500,000 Unit/5 Ml Oral.Susp PO 500,000 unit QID ASCENCION Administration Protocol Sodium Chloride 3 ml 07/04/20 00:00 07/20/20 08:17 0.9 % Sodium Chloride Flush 3 Ml Syringe IVFLUSH 3 ml QSHIFT ASCENCION Administration Thiamine HCl 200 mg 07/17/20 10:45 07/20/20 08:18 Thiamine Hcl 100 Mg Tablet PO 200 mg DAILY ASCENCION Administration Labs CBC & Chem 7: 07/16/20 05:35 07/20/20 05:32 Microbiology Microbiology Results: Microbiology 07/03/20 17:50 Blood - Venous Blood Culture - Final No growth after 5 days. 07/03/20 17:17 Blood - Venous Blood Culture - Final No growth after 5 days. Assessment and Plan (1) COVID-19: Problem details: +SARS Vov2 ab Status: Acute (2) Acute respiratory distress syndrome (ARDS) due to COVID-19 virus: Status: Acute (3) Acute respiratory failure with hypoxia: Status: Acute Assessment and Plan: 65 year old man admitted with acute respiratory failure secondary to Covid 19/ARDS persistent hypoxia. 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 -supportive care -wean gradually Obesity. BMI 34.4. Discussed importance of weight loss. DVT prophylaxis with Lovenox.
--- NOTE | 2020-07-20 14:06 | MHC.CM.PN ---
Patient is on high flow O2 and IV solu-medrol. . Discharge plan is home no services. will provide transport. CM will continue to follow for discharge needs.
[2020-07-20] MEDS: diphenhydrAMINE HCL 50 MG/ML VIAL 25 MG IVPUSH (20:57)
[2020-07-21] VITALS (13 sets, daily range): BP systolic 112–161; BP diastolic 58–83; PULSE 91–118; RESP 18–24; TEMP 36.3–36.6; O2SAT 88–95
--- NOTE | 2020-07-21 | CT_ITS ---
EXAMINATION: CT CHEST WITHOUT CONTRAST CLINICAL INFORMATION: Question pneumothorax COMPARISON: Chest x-ray earlier the same day chest CT 07/03/2020 TECHNIQUE: Multidetector volumetric CT imaging of the chest was done. Axial MIP volume rendering provided. Sagittal and coronal reformatted images were obtained. This CT examination was performed using dose optimization techniques as appropriate, variously including the following: *Automated exposure control *Adjustment of mA and/or kV according to patient size (this includes techniques or standardized protocols for targeted exams where dose is matched to indication/reason for exam; i.e. 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 LUNGS: There is diffuse groundglass opacity with areas of interlobular septal thickening and reticulation involving the right greater than left lower lobes and right greater than left upper lobes. There is more extensive involvement than on the prior study 07/03/2020. The findings are in keeping with viral COVID pneumonitis. MEDIASTINUM: There is extensive pneumomediastinum with gas tracking superiorly into the fascial planes of the midline neck, right posterior paravertebral soft tissues, right shoulder, right axilla, and right chest wall. Pneumomediastinum is seen surrounding the aorta and proximal airways as well as the esophagus and pericardial soft tissues. Normal heart size. Coronary artery calcification. No hilar or mediastinal lymphadenopathy. PLEURA: Although much of the gas seen medially and anteriorly is likely related to the pneumomediastinum and subcutaneous emphysema, there does appear to be gas in the right pleural space posteriorly consistent with a trace pneumothorax, presumably extension from the pneumomediastinum. In the left lung, there may be trace pneumothorax posteriorly at the left lung base, extending further laterally than would be expected for pneumomediastinum alone. This is at most a trace pneumothorax as well. AXILLA: No axillary or internal mammary lymphadenopathy. Extensive subcutaneous emphysema of the right shoulder, axilla, and chest wall, as described above. UPPER ABDOMEN: Diffuse hepatic steatosis. No adrenal mass. Hyperdense material in the gallbladder consistent with hyperdense bile or sludge. OSSEOUS STRUCTURES: Unremarkable. CT/CT chest wo con IMPRESSION: Extensive pneumomediastinum. Extensive subcutaneous emphysema involving the neck, right shoulder, right axilla, and right chest wall. There is likely trace bilateral pneumothoraces. Much of the gas seen medially and anteriorly, right greater than left, likely represents extension of the pneumomediastinum but there does appear to be gas in the pleural spaces bilaterally, further posterior and lateral than would be expected for pneumomediastinum alone. This critical result was discussed with Phi Feliciano MD MD by telephone at 07/21/2020 3:06 PM and it was ascertained that the content and urgency of the report was understood at the time of direct communication.
--- NOTE | 2020-07-21 | XR_ITS ---
EXAMINATION: XR CHEST CLINICAL INFORMATION: Pneumothorax COMPARISON: Chest x-ray 07/20/2020 TECHNIQUE: Frontal view of the chest was obtained. FINDINGS: Tiny right apical pneumothorax is unchanged. The lungs are otherwise well aerated. A small amount of subcutaneous emphysema is suspected in the right axilla and right neck, nonspecific. The cardiac silhouette is normal in size. No large pleural effusion. Similar mild patchy bilateral airspace disease. XR/XR chest 1V IMPRESSION: Stable tiny right apical pneumothorax with suspected subcutaneous emphysema of the right axilla/neck. It is possible this is however artifactual in nature. Clinical correlation recommended. Further evaluation can be obtained with chest CT if clinically indicated.
[2020-07-21] MEDS: Fluticasone/Vilanterol 200/25 BLST.W.DEV 1 PUFF INHALE (08:17)
[2020-07-21] MEDS: Enoxaparin Sodium 80 MG/0.8 ML SYRINGE SUBCUT ×2 (09:26→21:47)
[2020-07-21] MEDS: methylPREDNISolone Sod Succ/PF 125 MG/2 ML VIAL 60 MG IVPUSH ×2 (09:26→21:46)
[2020-07-21] MEDS: Thiamine HCL 100 MG TABLET 200 MG PO (09:26)
[2020-07-21] MEDS: Famotidine/PF 20 MG/2 ML VIAL 40 MG IVPUSH ×2 (09:26→21:47)
[2020-07-21] MEDS: 0.9 % Sodium Chloride Flush 3 ML SYRINGE IVFLUSH ×3 (09:26→21:47)
[2020-07-21] MEDS: Nystatin Oral Susp 500,000 UNIT/5 ML ORAL.SUSP 500000 UNIT PO ×4 (09:26→21:46)
--- NOTE | 2020-07-21 13:33 | P.PNIM_ITS ---
Subjective Subjective Date of Service: 07/21/20 Interval History: Seen in follow-up for acute hypoxic respiratory failure due to COVID infection and required some ICU level but did not arise to mechanical ventilation, just. He remains hypoxic and still on high flow and NRB. No change overnight Review of Systems Gen: no fever Resp: + sob, no cough CV: no chest, no العلي, no leg edema GI: No n/v, no abd pain Neuro: No confusion Constitutional Constitutional: Reports malaise and Reports weakness Eyes Eyes: Denies change in vision and Denies loss of vision Cardiovascular Cardiovascular: Denies chest pain, Reports dyspnea and Reports dyspnea on exertion Respiratory Respiratory: Reports cough, Reports dyspnea and Reports dyspnea on exertion Gastrointestinal Gastrointestinal: Denies abdominal pain, Denies change in bowel habits, Denies constipation and Denies diarrhea Genitourinary Genitourinary: Denies urinary incontinence and Denies urinary urgency Integumentary/Breasts Skin/Breast: Denies rash Neurologic Neurologic: Denies focal weakness, Denies loss of vision and Reports weakness Endocrine Endocrine: Denies cold intolerance and Denies heat intolerance Hematologic/Lymphatic Hematologic/Lymphatic: Denies easy bleeding and Denies easy bruising Physical Exam Vital Signs: Vital Signs: Last Vital Signs Temp 97.6 F 07/21/20 12:00 Pulse 102 H 07/21/20 12:00 Resp 24 H 07/21/20 12:59 BP 112/62 07/21/20 12:00 Pulse Ox 93 07/21/20 12:00 Body Mass Index 34.4 Const: General: cooperative and comfortable Resp: Effort & Inspection: normal respiratory effort and able to speak in complete sentences Cardio: Jugular venous distension: no JVD Rhythm: regular rhythm Heart sounds: S1 normal heart sound present and S2 normal heart sound present GI: Palpation (GI): Soft to palpation Percussion: Yes normal to percussion Objective Data Current Medications Generic Name Dose Route Start Last Admin Trade Name Freq PRN Reason Stop Dose Admin Acetaminophen 650 mg 07/03/20 21:05 07/20/20 12:16 Acetaminophen 325 Mg Tablet PO 650 mg Q6H PRN Administration Pain, Mild (Pain Scale 1-3) Albuterol Sulfate 2 puff 07/20/20 09:26 Albuterol Sulfate 90 Mcg 8 Gm Inhaler INHALE RQ4H PRN Cough Enoxaparin Sodium 80 mg 07/17/20 10:00 07/21/20 09:26 Enoxaparin Sodium 80 Mg/0.8 Ml Syringe SUBCUT 80 mg Q12H ASCENCION Administration Famotidine 40 mg 07/13/20 21:00 07/21/20 09:26 Famotidine/Pf 20 Mg/2 Ml Vial IVPUSH 40 mg BID ASCENCION Administration Fluticasone/Vilanterol 1 puff 07/21/20 08:00 07/21/20 08:17 Fluticasone/Vilanterol 200/25 Blst.W.Dev INHALE 1 puff RDAILY ASCENCION Administration Guaifenesin 600 mg 07/18/20 08:51 07/19/20 20:42 Guaifenesin La 600 Mg Tab.Er.12h PO 600 mg BID PRN Administration Cough Methylprednisolone Sodium Succinate 60 mg 07/17/20 22:00 07/21/20 09:26 Methylprednisolone Sod Succ/Pf 125 Mg/2 Ml Vial IVPUSH 60 mg Q12H ASCENCION Administration Nystatin 500,000 unit 07/13/20 17:15 07/21/20 12:43 Nystatin Oral Susp 500,000 Unit/5 Ml Oral.Susp PO 500,000 unit QID ASCENCION Administration Protocol Sodium Chloride 3 ml 07/04/20 00:00 07/21/20 09:26 0.9 % Sodium Chloride Flush 3 Ml Syringe IVFLUSH 3 ml QSHIFT ASCENCION Administration Thiamine HCl 200 mg 07/17/20 10:45 07/21/20 09:26 Thiamine Hcl 100 Mg Tablet PO 200 mg DAILY ASCENCION Administration Labs CBC & Chem 7: 07/16/20 05:35 07/20/20 05:32 Microbiology Microbiology Results: Microbiology 07/03/20 17:50 Blood - Venous Blood Culture - Final No growth after 5 days. 07/03/20 17:17 Blood - Venous Blood Culture - Final No growth after 5 days. Assessment and Plan (1) COVID-19: Problem details: +SARS Vov2 ab Status: Acute (2) Acute respiratory distress syndrome (ARDS) due to COVID-19 virus: Status: Acute (3) Acute respiratory failure with hypoxia: Status: Acute Assessment and Plan: 65 year old man admitted with acute respiratory failure secondary to Covid 19/ARDS persistent hypoxia. Acute hypoxic respiratory failure secondary to covid 19 with ARDS--and now li kley effect of post covid pulmonary fibrosis. Recent CXR from 07/20 and 07/21 shows small apical PTX that could be artifact and not contributing to hypoxia. -Get chest CT -continue steroid -supportive care -wean gradually Obesity. BMI 34.4. Discussed importance of weight loss. DVT prophylaxis with Lovenox.
[2020-07-21] MEDS: Acetaminophen 325 MG TABLET 650 MG PO (17:15)
[2020-07-21] MEDS: Docusate Sodium 100 MG CAPSULE PO (21:47)
[2020-07-22] VITALS (12 sets, daily range): BP systolic 106–128; BP diastolic 64–72; PULSE 94–123; RESP 19–22; TEMP 36.3–36.7; O2SAT 87–94
--- NOTE | 2020-07-22 | XR_ITS ---
EXAMINATION: XR CHEST CLINICAL INFORMATION: Follow-up pneumothorax COMPARISON: CT chest dated 07/21/2020 and 07/03/2019 TECHNIQUE: Frontal view of the chest was obtained. FINDINGS: Trace bilateral pneumothoraces, slightly larger bilaterally. Pneumomediastinum. Extensive subcutaneous emphysema within the lower neck and along the right chest wall. Persistent patchy opacities within the lower lungs bilaterally. No pleural effusion. Heart size within normal limits. Aorta is tortuous. No acute or suspicious osseous abnormalities. XR/XR chest 1V IMPRESSION: Trace bilateral pneumothoraces, with slight interval increase in size since previous exams.
[2020-07-22] MEDS: Fluticasone/Vilanterol 200/25 BLST.W.DEV 1 PUFF INHALE (07:56)
[2020-07-22] MEDS: methylPREDNISolone Sod Succ/PF 125 MG/2 ML VIAL 60 MG IVPUSH ×2 (09:01→22:50)
[2020-07-22] MEDS: Famotidine/PF 20 MG/2 ML VIAL 40 MG IVPUSH ×2 (09:03→22:00)
[2020-07-22] MEDS: Nystatin Oral Susp 500,000 UNIT/5 ML ORAL.SUSP 500000 UNIT PO ×4 (09:03→22:00)
[2020-07-22] MEDS: Enoxaparin Sodium 80 MG/0.8 ML SYRINGE SUBCUT ×2 (09:03→22:53)
[2020-07-22] MEDS: Docusate Sodium 100 MG CAPSULE PO (09:04)
[2020-07-22] MEDS: Thiamine HCL 100 MG TABLET 200 MG PO (09:05)
[2020-07-22] MEDS: 0.9 % Sodium Chloride Flush 3 ML SYRINGE IVFLUSH ×2 (09:10→17:09)
--- NOTE | 2020-07-22 11:12 | PM.PNPUL ---
Subjective Subjective Date of Service: 07/22/20 Principal diagnosis: COVID - ARDS Interval history: The patient was seen and examined. His oxygen requirement still very high and he is demonstrating some degree of hypoxia. CT scan of the chest demonstrating extensive pneumomediastinum and also bilateral small pneumothoraces likely related to within the mediastinum. Also with extensive subcutaneous air related to the pneumomediastinum. Your knee on high-flow a 60 L flow. This is likely contributing to his degree pneumomediastinum. Therefore we will try to decreased flow. Objective Data Labs CBC & Chem 7: 07/16/20 05:35 07/20/20 05:32 Microbiology Microbiology Results: Microbiology 07/03/20 17:50 Blood - Venous Blood Culture - Final No growth after 5 days. 07/03/20 17:17 Blood - Venous Blood Culture - Final No growth after 5 days. Review of Systems Constitutional: Reports weakness Eyes: Denies loss of vision Cardiovascular: Denies chest pain and Reports dyspnea Respiratory: Reports cough and Reports dyspnea Denies focal weakness, Denies loss of vision and Reports weakness Physical Exam Vital Signs: Vital Signs: Last Vital Signs Temp 97.8 F 07/22/20 07:52 Pulse 104 H 07/22/20 07:58 Resp 20 07/22/20 08:00 BP 106/65 07/22/20 07:52 Pulse Ox 87 L 07/22/20 07:52 Body Mass Index 34.4 Const: General: alert and tired appearing HENMT: General nose exam: Abnormal external nose present and Nasal discharge present Eyes: Pupils: Equal, round and reactive pupils present Neck: Neck: Yes normal visual inspection, Yes full ROM and Yes no lymphadenopathy Chest: Chest palpation & inspection: normal inspection of the chest and crepitus (Due to subcutaneous air) Resp: Auscultation: rales and diminished lung sounds Cardio: Rate: regular rate Rhythm: regular rhythm Heart sounds: S1 normal heart sound present and S2 normal heart sound present GI: Palpation (GI): Soft to palpation and nontender Auscultation: normal bowel sounds : General: Yes no CVA tenderness Back/Spine/Pelvis: Back: no CVA tenderness Skin: General skin exam: rashes and/or lesions noted Neuro: Cranial nerves: Yes Equal, round and reactive pupils present Assessment and Plan Assessment and plan (1) Acute respiratory distress syndrome (ARDS) due to COVID-19 virus: Problem details: With significant oxygen requirements. May have a component of pulmonary hypertension. We will draw a pulmonary basal dilator to try to decrease oxygen requirements and therefore the greasy oxygen flow that may be contributing to the pneumomediastinum. Status: Acute Assessment and Plan: Start sildenafil 20 mg p.o. t.i.d., need to monitor closely for worsening hypoxia Consider ICU level of care if the pneumothoraces get worse an or his oxygen requirements continued to increase (2) COVID-19: Problem details: +SARS Vov2 ab Status: Acute (3) Pneumomediastinum: Problem details: This carries a poor prognosis in view of his significant COVID-19 infection. Status: Acute Assessment and Plan: Monitor closely with x-rays Decrease high-flow from 60 L to 50 L per would hopefully with the addition of sildenafil we can decrease it further. (4) Pneumothorax: Status: Acute Assessment and Plan: Need to monitor closely with x-rays. If any worsening wound need ICU level care and chest tube placement. Time Spent With Patient Time: Total time spent is greater than 50% in coordination of care (as documented) at patient's floor/unit and/or counseling patient: Time with patient: 25 - 35 minutes
--- NOTE | 2020-07-22 11:25 | P.PNIM_ITS ---
Subjective Subjective Date of Service: 07/22/20 Interval History: Seen in follow-up for acute hypoxic respiratory failure due to COVID infection and required some ICU level but did not arise to mechanical ventilation.He remains hypoxic and is on a non-rebreather as well as high-flow oxygen. A CT scan of the chest yesterday revealed extensive pneumo mediastinum and the subcutaneous emphysema minimal pneumonia pneumothorax. Review of Systems Gen: no fever Resp: + sob, no cough CV: no chest, + العلي, no leg edema GI: No n/v, no abd pain Neuro: No confusion Cardiovascular Cardiovascular: Reports dyspnea and Reports dyspnea on exertion Respiratory Respiratory: Reports cough, Reports dyspnea and Reports dyspnea on exertion Physical Exam Vital Signs: Vital Signs: Last Vital Signs Temp 97.8 F 07/22/20 07:52 Pulse 104 H 07/22/20 07:58 Resp 20 07/22/20 08:00 BP 106/65 07/22/20 07:52 Pulse Ox 87 L 07/22/20 07:52 Body Mass Index 34.4 Const: General: cooperative and comfortable Resp: Effort & Inspection: normal respiratory effort and able to speak in complete sentences Cardio: Jugular venous distension: no JVD Rhythm: regular rhythm Heart sounds: S1 normal heart sound present and S2 normal heart sound present GI: Palpation (GI): Soft to palpation Percussion: Yes normal to percussion Objective Data Current Medications Generic Name Dose Route Start Last Admin Trade Name Freq PRN Reason Stop Dose Admin Acetaminophen 650 mg 07/03/20 21:05 07/21/20 17:15 Acetaminophen 325 Mg Tablet PO 650 mg Q6H PRN Administration Pain, Mild (Pain Scale 1-3) Albuterol Sulfate 2 puff 07/20/20 09:26 Albuterol Sulfate 90 Mcg 8 Gm Inhaler INHALE RQ4H PRN Cough Docusate Sodium 100 mg 07/21/20 21:00 07/22/20 09:04 Docusate Sodium 100 Mg Capsule PO 100 mg BID ASCENCION Administration Enoxaparin Sodium 80 mg 07/17/20 10:00 07/22/20 09:03 Enoxaparin Sodium 80 Mg/0.8 Ml Syringe SUBCUT 80 mg Q12H ASCENCION Administration Famotidine 40 mg 07/13/20 21:00 07/22/20 09:03 Famotidine/Pf 20 Mg/2 Ml Vial IVPUSH 40 mg BID ASCENCION Administration Fluticasone/Vilanterol 1 puff 07/21/20 08:00 07/22/20 07:56 Fluticasone/Vilanterol 200/25 Blst.W.Dev INHALE 1 puff RDAILY ASCENCION Administration Guaifenesin 600 mg 07/18/20 08:51 07/19/20 20:42 Guaifenesin La 600 Mg Tab.Er.12h PO 600 mg BID PRN Administration Cough Magnesium Hydroxide 30 ml 07/21/20 17:14 Milk Of Magnesia 30 Ml Oral.Susp PO DAILY PRN Constipation Methylprednisolone Sodium Succinate 60 mg 07/17/20 22:00 07/22/20 09:01 Methylprednisolone Sod Succ/Pf 125 Mg/2 Ml Vial IVPUSH 60 mg Q12H ASCENCION Administration Nystatin 500,000 unit 07/13/20 17:15 07/22/20 09:03 Nystatin Oral Susp 500,000 Unit/5 Ml Oral.Susp PO 500,000 unit QID ASCENCION Administration Protocol Polyethylene Glycol 17 gm 07/21/20 17:14 Polyethylene Glycol 3350 17 Gm Powd.Pack PO DAILY PRN Constipation Sildenafil Citrate 20 mg 07/22/20 15:00 Sildenafil Citrate 20 Mg Tablet PO TID ASCENCION Sodium Chloride 3 ml 07/04/20 00:00 07/22/20 09:10 0.9 % Sodium Chloride Flush 3 Ml Syringe IVFLUSH 3 ml QSHIFT ASCENCION Administration Thiamine HCl 200 mg 07/17/20 10:45 07/22/20 09:05 Thiamine Hcl 100 Mg Tablet PO 200 mg DAILY ASCENCION Administration Labs CBC & Chem 7: 07/16/20 05:35 07/20/20 05:32 Microbiology Microbiology Results: Microbiology 07/03/20 17:50 Blood - Venous Blood Culture - Final No growth after 5 days. 07/03/20 17:17 Blood - Venous Blood Culture - Final No growth after 5 days. Assessment and Plan (1) COVID-19: Problem details: +SARS Vov2 ab Status: Acute (2) Acute respiratory distress syndrome (ARDS) due to COVID-19 virus: Status: Acute (3) Acute respiratory failure with hypoxia: Status: Acute Assessment and Plan: 65 year old man admitted with acute respiratory failure secondary to Covid 19 /ARDS persistent hypoxia. 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 Recent CXR from 07/20 and 07/21 shows small apical PTX that could be artifact and not contributing to hypoxia. A CT of the chest on 07/21 shows extensive pneumomediastinum. Extensive subcutaneous emphysema involvingthe neck, right shoulder, right axilla, and right chest wall. -continue steroid -supportive care -wean gradually -daily checks x-ray to assess pneumothorax. Pulmonary following with the following assessment from Dr. Feliciano With significant oxygen requirements. May have a component of pulmonary hypertension. We will try a pulmonary vasal dilator to try to decrease oxygen requirements and therefore decrease oxygen flow that may be contributing to the pneumomediastinum. Start sildenafil 20 mg p.o. t.i.d., need to monitor closely for worsening hypoxia Consider ICU level of care if the pneumothoraces get worse an or his oxygen requirements continued to increase Obesity. BMI 34.4. Discussed importance of weight loss.
[2020-07-22] MEDS: Sildenafil Citrate 20 MG TABLET PO ×2 (14:33→22:00)
[2020-07-22 21:06] LABS: Glucose, Whole Blood 159 mg/dL (60-115)
[2020-07-23] VITALS (13 sets, daily range): BP systolic 105–148; BP diastolic 58–86; PULSE 114–129; RESP 18–26; TEMP 36.2–37; O2SAT 88–96
--- NOTE | 2020-07-23 | XR_ITS ---
EXAMINATION: PORTABLE CHEST 1 VIEW CLINICAL INFORMATION: covid pneumonia / pneumothorax . COMPARISON: 07/23/2020. TECHNIQUE: Portable frontal view of the chest was obtained. FINDINGS: Lungs are hypoexpanded. Small bilateral pneumothoraces are seen increased on the left from earlier today. Patchy bilateral airspace disease is again noted. No significant effusion. Pneumomediastinum and subcutaneous gas extending into the neck, chest, and upper mediastinum. XR/XR chest 1V IMPRESSION: Small bilateral pneumothoraces slightly increased on the left from earlier today and stable on the right. Subcutaneous gas and pneumomediastinum are again present. Patchy bilateral airspace disease again noted.
--- NOTE | 2020-07-23 | XR_ITS ---
EXAMINATION: XR CHEST CLINICAL INFORMATION: Pneumothorax COMPARISON: Chest x-ray 07/22/2020 TECHNIQUE: Frontal view of the chest was obtained. FINDINGS: Again visualized is a right chest wall subcutaneous emphysema and a small right apical pneumothorax approximately 5% left-sided pneumothorax is not well visualized. Lungs are expanded with patchy opacities in both lower lobes similar to previous study. Heart size size and pulmonary vascularity is normal. No gross bony abnormality. XR/XR chest 1V IMPRESSION: Right chest wall emphysema and right apical pneumothorax appears stable. Left pneumothorax is not clearly visualized due to patient positioning. There is bibasilar patchy opacities similar to previous study.
[2020-07-23] MEDS: 0.9 % Sodium Chloride Flush 3 ML SYRINGE IVFLUSH ×4 (01:57→21:21)
[2020-07-23 06:56] LABS: Basophils Percent Auto 0.3 % (0-2); Hematocrit 41.3 % (42-52); Imm Gran Abs Auto 0.25 X10*3/uL (0.00-0.03); Imm Gran Pct Auto 2.3 % (0.0-0.4); Lymphocytes Absolute Auto 0.7 X10*3/uL (1.2-4.9); Lymphocytes Percent Auto 6.4 % (20-40); MANUAL DIFF FLAG SCAN; Mean Corpuscular HGB Conc 33.9 g/dl (31.0-36.0); Mean Corpuscular Hemoglobin 30.9 pg (27.0-33.0); Mean Corpuscular Volume 91.2 fL (80-98); Mean Platelet Volume 11.8 fL (9.4-12.4); Monocytes Absolute Auto 0.3 X10*3/uL (0.1-1.2); Monocytes Percent Auto 2.9 % (2-11); Neutrophils Absolute Auto 9.5 X10*3/uL (2.0-8.3); Neutrophils Percent Auto 88.1 % (45-73); Platelet Count 183 X10*3/uL (160-400); Red Blood Count 4.53 X10*6/uL (4.60-5.80); Red Cell Distribution Width 13.1 % (11.0-16.0); SCAN SMEAR FLAG 1; White Blood Count 10.8 X10*3/uL (4.8-10.8)
[2020-07-23 06:58] LABS: Anion Gap 20 (12-20); Blood Urea Nitrogen 24 mg/dL (9-16); Carbon Dioxide 20 mmol/L (22-29); Chloride 100 mmol/L (96-108); Creatinine Clr Calc Pharmacy 121.3; Estimated Glomerular Filt Rate > 60; Glucose Random 177 mg/dL (60-115); Sodium 135 mmol/L (135-145)
[2020-07-23] MEDS: Fluticasone/Vilanterol 200/25 BLST.W.DEV 1 PUFF INHALE (07:56)
[2020-07-23 08:20] LABS: SLIDE REVIEW VERIFIED
[2020-07-23] MEDS: methylPREDNISolone Sod Succ/PF 125 MG/2 ML VIAL 60 MG IVPUSH (09:04)
[2020-07-23] MEDS: Famotidine/PF 20 MG/2 ML VIAL 40 MG IVPUSH ×2 (09:04→21:21)
[2020-07-23] MEDS: Enoxaparin Sodium 80 MG/0.8 ML SYRINGE SUBCUT ×2 (09:06→21:21)
[2020-07-23] MEDS: Thiamine HCL 100 MG TABLET 200 MG PO (09:08)
[2020-07-23] MEDS: Sildenafil Citrate 20 MG TABLET PO ×2 (09:08→15:52)
[2020-07-23] MEDS: Nystatin Oral Susp 500,000 UNIT/5 ML ORAL.SUSP 500000 UNIT PO ×4 (09:08→21:20)
[2020-07-23] MEDS: Docusate Sodium 100 MG CAPSULE PO ×2 (09:08→21:21)
--- NOTE | 2020-07-23 13:15 | MHC.CM.PN ---
Patient continues to need O2 at 50 liters with FIO2 at 100% NRB mask. Also on IV Dexamethasone for +COVID. Discharge plan is home no services. will provide transportation. CM will continue to follow patient for discharge needs.
--- NOTE | 2020-07-23 15:45 | HO.PM.IMPN ---
Subjective Subjective Date of Service: 07/24/20 Interval History: Acute hypoxemic respiratory failure, pneumothorax Review of Systems Patient has is shortness of breath is similar is as of yesterday, not worsening Denies any chest pain or abdominal pain or fever or chills or nausea or vomiting Physical Exam Vital Signs: Vital Signs: Last Vital Signs Temp 97.2 F 07/23/20 11:20 Pulse 129 H 07/23/20 11:20 Resp 22 H 07/23/20 11:26 BP 114/68 07/23/20 11:20 Pulse Ox 89 L 07/23/20 11:20 Body Mass Index 34.4 Physical exam: Constitutional: Somewhat short of breath Cvs: rrr, [id number] , no murmur res: fair air enty , no rales or wheezing abd: no rebound or guarding ,nt, bs present. ext pulses present , no cyanosis neuro: axo3 , nonfocal. Objective Data Current Medications Generic Name Dose Route Start Last Admin Trade Name Freq PRN Reason Stop Dose Admin Acetaminophen 650 mg 07/03/20 21:05 07/21/20 17:15 Acetaminophen 325 Mg Tablet PO 650 mg Q6H PRN Administration Pain, Mild (Pain Scale 1-3) Albuterol Sulfate 2 puff 07/20/20 09:26 Albuterol Sulfate 90 Mcg 8 Gm Inhaler INHALE RQ4H PRN Cough Docusate Sodium 100 mg 07/21/20 21:00 07/23/20 09:08 Docusate Sodium 100 Mg Capsule PO 100 mg BID ASCENCION Administration Enoxaparin Sodium 80 mg 07/17/20 10:00 07/23/20 09:06 Enoxaparin Sodium 80 Mg/0.8 Ml Syringe SUBCUT 80 mg Q12H ASCENCION Administration Famotidine 40 mg 07/13/20 21:00 07/23/20 09:04 Famotidine/Pf 20 Mg/2 Ml Vial IVPUSH 40 mg BID ASCENCION Administration Fluticasone/Vilanterol 1 puff 07/21/20 08:00 07/23/20 07:56 Fluticasone/Vilanterol 200/25 Blst.W.Dev INHALE 1 puff RDAILY ASCENCION Administration Guaifenesin 600 mg 07/18/20 08:51 07/19/20 20:42 Guaifenesin La 600 Mg Tab.Er.12h PO 600 mg BID PRN Administration Cough Magnesium Hydroxide 30 ml 07/21/20 17:14 Milk Of Magnesia 30 Ml Oral.Susp PO DAILY PRN Constipation Methylprednisolone Sodium Succinate 60 mg 07/17/20 22:00 07/23/20 09:04 Methylprednisolone Sod Succ/Pf 125 Mg/2 Ml Vial IVPUSH 60 mg Q12H ASCENCION Administration Nystatin 500,000 unit 07/13/20 17:15 07/23/20 14:55 Nystatin Oral Susp 500,000 Unit/5 Ml Oral.Susp PO 500,000 unit QID ASCENCION Administration Protocol Polyethylene Glycol 17 gm 07/21/20 17:14 Polyethylene Glycol 3350 17 Gm Powd.Pack PO DAILY PRN Constipation Sildenafil Citrate 20 mg 07/22/20 15:00 07/23/20 09:08 Sildenafil Citrate 20 Mg Tablet PO 20 mg TID ASCENCION Administration Sodium Chloride 3 ml 07/04/20 00:00 07/23/20 09:04 0.9 % Sodium Chloride Flush 3 Ml Syringe IVFLUSH 3 ml QSHIFT ASCENCION Administration Thiamine HCl 200 mg 07/17/20 10:45 07/23/20 09:08 Thiamine Hcl 100 Mg Tablet PO 200 mg DAILY ASCENCION Administration Labs CBC & Chem 7: 07/23/20 05:30 07/24/20 05:27 Microbiology Microbiology Results: Microbiology 07/03/20 17:50 Blood - Venous Blood Culture - Final No growth after 5 days. 07/03/20 17:17 Blood - Venous Blood Culture - Final No growth after 5 days. Assessment and Plan (1) Pneumothorax: Status: Acute (2) Pneumomediastinum: Status: Acute (3) Acute respiratory failure with hypoxia: Status: Acute Assessment and Plan: 65 year old man admitted with acute respiratory failure secondary to Covid 19/ARDS persistent hypoxia. 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 A CT of the chest on 07/21 shows extensive pneumomediastinum. Extensive subcutaneous emphysema involvingthe neck, right shoulder, right axilla, and right chest wall. cxr:Right chest wall emphysema and right apical pneumothorax appears stable. Left pneumothorax is not clearly visualized due to patient positioning.There is bibasilar patchy opacities similar to previous study. continue wean gradually,supportive care-albuterol hfa,steroid,lovenox , famotidine, revito, xray daily. Pulmonary following-discussed with Dr Lovett : pulmonary will followup Consider ICU level of care if the pneumothoraces get worse an or his oxygen requirements continued to increase In the evening patient was getting more short of breath and progressively becoming more tachycardic: Chest x-ray added and night staff is aware to follow-up patient clinically and follow-up with chest x-ray. May need ICU follow up if continue to get worse. Obesity. BMI 34.4. Discussed importance of weight loss. (4) COVID-19: Status: Acute (5) Acute respiratory distress syndrome (ARDS) due to COVID-19 virus: Status: Acute
--- NOTE | 2020-07-23 16:20 | PM.PNPUL ---
Subjective Subjective Date of Service: 07/23/20 Principal diagnosis: COVID - ARDS Interval history: 65-year-old gentleman with acute hypoxic respiratory failure related to COVID-19 ARDS with very slow recovery further complicated by spontaneous right-sided pneumothorax and pneumomediastinum. Still significantly hypoxic. No events overnight. Objective Data Labs CBC & Chem 7: 07/23/20 05:30 07/23/20 05:30 Labs: Laboratory Results - last 24 hr 07/22/20 07/23/20 07/23/20 20:46 05:30 05:30 WBC 10.8 RBC 4.53 L Hgb 14.0 Hct 41.3 L MCV 91.2 MCH 30.9 MCHC 33.9 RDW 13.1 Plt Count 183 MPV 11.8 Immature Gran % (Auto) 2.3 H Neut % (Auto) 88.1 H Lymph % (Auto) 6.4 L Republic % (Auto) 2.9 Eos % (Auto) 0.0 Baso % (Auto) 0.3 Lymph # (Auto) 0.7 L [place] # (Auto) 0.3 Eos # (Auto) 0.0 Baso # (Auto) 0.0 Abs Immat Gran (auto) 0.25 H Absolute Neuts (auto) 9.5 H Absolute Nucleated RBC 0.000 Nucleated RBC % (auto) 0.0 Smear Tech's Comments VERIFIED Sodium 135 Potassium 5.0 Chloride 100 Carbon Dioxide 20 L Anion Gap 20 BUN 24 H Creatinine 0.76 Estim Creat Clear Calc 121.3 Estimated GFR > 60 POC Glucose 159 H Random Glucose 177 H Calcium 8.0 L Microbiology Microbiology Results: Microbiology 07/03/20 17:50 Blood - Venous Blood Culture - Final No growth after 5 days. 07/03/20 17:17 Blood - Venous Blood Culture - Final No growth after 5 days. Review of Systems Cardiovascular: Denies chest pain, Reports pedal edema, Reports dyspnea and Denies orthopnea Respiratory: Denies cough, Denies excessive phlegm production and Reports dyspnea Physical Exam Vital Signs: Vital Signs: Last Vital Signs Temp 97.4 F 07/23/20 15:55 Pulse 123 H 07/23/20 15:55 Resp 26 H 07/23/20 15:55 BP 111/69 07/23/20 15:55 Pulse Ox 94 07/23/20 15:55 Body Mass Index 34.4 Const: General: no acute distress, alert and awake Eyes: Sclerae: sclerae normal EOM: EOMs intact bilaterally Neck: Neck: Yes no lymphadenopathy, Yes trachea midline and Yes supple Resp: Effort & Inspection: normal respiratory effort and no respiratory distress Auscultation: clear to auscultation bilaterally Cardio: Rate: tachycardic Rhythm: regular rhythm Heart sounds: no gallops, no murmurs and no rubs GI: Palpation (GI): Soft to palpation and Other GI palpation findings present ( Nontender) Auscultation: normal bowel sounds Extrem: General: No clubbing, No cyanosis and Yes edema (1+ bilateral) Assessment and Plan Assessment and plan (1) Pneumothorax: Status: Acute Assessment and Plan: Impression: Acute hypoxic respiratory failure secondary to COVID-19 related ARDS with slow recovery further complicated by spontaneous pneumomediastinum and spontaneous right-sided pneumothorax. Recommendation: Continue to titrate off supplemental oxygen as tolerated. Will start to taper prednisone. Suggest to maintain overall slightly negative fluid balance. (2) Pneumomediastinum: Status: Acute (3) Acute respiratory failure with hypoxia: Status: Acute (4) COVID-19: Status: Acute Time Spent With Patient Time with patient: 25 - 35 minutes
[2020-07-23] MEDS: Furosemide 20 MG/2 ML VIAL IVPUSH (17:27)
[2020-07-23] MEDS: LORazepam 0.5 MG TABLET PO (19:44)
--- NOTE | 2020-07-23 23:24 | P.EN_ITS ---
Event Note Date of Service: 07/23/20 Event Note: Asked by nursing staff to evaluate ongoing tachycardia. Chart rev iewed. Patient is 65 year old man with COVID and hypoic respiratroy failure-now on high flow. Noted pneumothorax and repeat CXR showed ongoing right and new small left apical pneumothorax. He denied chest pain but is dyspneic and anxious. Stated the Ativan given earlier helped him relax. Exam: Chest: diminished breath sounds at lung bases, no wheezing. A/P: 62 year old with COVID and hypoxemic respiratory failure. Continue present management and use Ativan PO q8 prn for anxiety. If he desats will obtain repeat chest film to evaluate worsening pneumothoraces.
[2020-07-24] VITALS (19 sets, daily range): BP systolic 92–153; BP diastolic 50–83; PULSE 111–134; RESP 19–48; TEMP 35.6–36.3; O2SAT 83–99
[2020-07-24] MEDS: LORazepam 0.5 MG TABLET PO ×2 (00:19→14:00)
--- NOTE | 2020-07-24 03:20 | XR_ITS ---
EXAMINATION: XR CHEST CLINICAL INFORMATION: Hypoxia COMPARISON: 07/23/2020 TECHNIQUE: Frontal view of the chest was obtained. FINDINGS: Lung volumes are symmetric. Redemonstrated mild bibasilar opacities, left greater than right and similar to prior. Small biapical pneumothoraces appear similar compared to prior. No significant pleural effusion. The cardiomediastinal silhouette is stable. Redemonstrated pneumomediastinum and soft tissue gas in the bilateral chest wall. XR/XR chest 1V IMPRESSION: Persistent small pneumothoraces, similar to prior. Redemonstrated pneumomediastinum, soft tissue gas, and mild bibasilar opacities.
[2020-07-24] MEDS: 0.9 % Sodium Chloride 500 ML 250 ML IVCONT ×3 (04:25→08:35)
--- NOTE | 2020-07-24 04:37 | PC.NURSE ---
P: Pt found hypoxic I: Assessed pt, obtained VS, administered IVF. E: Pt noted to desat to 50's on telemonitor. Upon entering pts room, this RN witnessed pt slumped over bedside table, bedside table contents spilled over floor. At that time, pt pale, gasping for air, unable to make eye contact. Rapid Response initiated. MD, RT, and nursing supervisor [employer] to pts bedside. Pt on NRB and HFNC, pts oxygen was found to off during this episode. Pts O2 placed back on, telesitter placed at bedside, VS obtained. BP 99/55, SAT 81% on HFNC. HR 141. Sat up to 94%. New order for STAT CXR, and 500ml NS bolus. Will continue to closely monitor patient.
--- NOTE | 2020-07-24 04:44 | PC.RT ---
rapid response called for pt this AM, per RN SATS decreased found pt with high flow out of his nose leaning over table. when i arrived sats in the 70s changed vanessa placed NRB on pt SATs increased to 95. SATs sit between 85-90.
[2020-07-24 06:55] LABS: Anion Gap 17 (12-20); Blood Urea Nitrogen 30 mg/dL (9-16); Calcium 8.2 mg/dL (8.4-10.2); Carbon Dioxide 27 mmol/L (22-29); Chloride 98 mmol/L (96-108); Creatinine Clr Calc Pharmacy 116.7; Estimated Glomerular Filt Rate > 60; Glucose Random 197 mg/dL (60-115); Sodium 137 mmol/L (135-145)
[2020-07-24] MEDS: Fluticasone/Vilanterol 200/25 BLST.W.DEV 1 PUFF INHALE (07:58)
[2020-07-24] MEDS: HYDROmorphone HCl 0.5 MG/0.5 ML SYRINGE IVPUSH (08:20)
[2020-07-24] MEDS: 0.9 % Sodium Chloride Flush 3 ML SYRINGE IVFLUSH ×4 (08:21→14:00)
[2020-07-24 08:22] LABS: Pt Ventilation O2% 100%
[2020-07-24] MEDS: Nystatin Oral Susp 500,000 UNIT/5 ML ORAL.SUSP 500000 UNIT PO ×2 (08:24→12:34)
[2020-07-24] MEDS: Famotidine/PF 20 MG/2 ML VIAL 40 MG IVPUSH (08:24)
[2020-07-24] MEDS: Enoxaparin Sodium 80 MG/0.8 ML SYRINGE SUBCUT (08:24)
[2020-07-24] MEDS: Docusate Sodium 100 MG CAPSULE PO (08:25)
[2020-07-24] MEDS: Thiamine HCL 100 MG TABLET 200 MG PO (08:25)
[2020-07-24] MEDS: predniSONE 20 MG TABLET 40 MG PO (08:25)
[2020-07-24 08:27] LABS: ABG PCO2 36 mmHg (32-45); Base Excess ABG 8.1; HCO3 ABG 30 mmol/L (22-26); PO2 ABG 60 mmHg (83-108); pH ABG 7.54 (7.35-7.45)
[2020-07-24] MEDS: HYDROmorphone HCl 0.5 MG/0.5 ML SYRINGE 0.25 MG IVPUSH (12:34)
[2020-07-24] MEDS: 0.9 % Sodium Chloride 1,000 ML 500 ML IVCONT (15:01)
--- NOTE | 2020-07-24 15:15 | HO.PM.IMPN ---
Subjective Subjective Date of Service: 07/24/20 Interval History: Acute hypoxemic respiratory failure secondary to COVID and pneumothorax is Review of Systems Patient still short of breath, tachycardic. Patient blood pressure is also borderline Seems sleepy intermittently. saying some buring and discomfort with urination Physical Exam Vital Signs: Vital Signs: Last Vital Signs Temp 97.3 F 07/24/20 12:00 Pulse 123 H 07/24/20 12:00 Resp 20 07/24/20 15:11 BP 102/66 07/24/20 12:00 Pulse Ox 92 07/24/20 12:00 Body Mass Index 34.4 Physical exam: Constitutional: HEENT: Eyes are anicteric, no discharge Neck is supple. res: diminshed breath sounds ,no wheezing. Cvs: regular, tachy , [id number] , no murmur. abd: no rebound or guarding ,nt, bs present. ext pulses present , no cyanosis . neuro: axo3 , nonfocal. Objective Data Current Medications Generic Name Dose Route Start Last Admin Trade Name Cameronq PRN Reason Stop Dose Admin Acetaminophen 650 mg 07/03/20 21:05 07/21/20 17:15 Acetaminophen 325 Mg Tablet PO 650 mg Q6H PRN Administration Pain, Mild (Pain Scale 1-3) Albuterol Sulfate 2 puff 07/20/20 09:26 Albuterol Sulfate 90 Mcg 8 Gm Inhaler INHALE RQ4H PRN Cough Docusate Sodium 100 mg 07/21/20 21:00 07/24/20 08:25 Docusate Sodium 100 Mg Capsule PO 100 mg BID ASCENCION Administration Enoxaparin Sodium 80 mg 07/17/20 10:00 07/24/20 08:24 Enoxaparin Sodium 80 Mg/0.8 Ml Syringe SUBCUT 80 mg Q12H ASCENCION Administration Famotidine 40 mg 07/13/20 21:00 07/24/20 08:24 Famotidine/Pf 20 Mg/2 Ml Vial IVPUSH 40 mg BID ASCENCION Administration Fluticasone/Vilanterol 1 puff 07/21/20 08:00 07/24/20 07:58 Fluticasone/Vilanterol 200/25 Blst.W.Dev INHALE 1 puff RDAILY ASCENCION Administration Guaifenesin 600 mg 07/18/20 08:51 07/19/20 20:42 Guaifenesin La 600 Mg Tab.Er.12h PO 600 mg BID PRN Administration Cough Hydromorphone HCl 0.25 mg 07/24/20 09:37 07/24/20 12:34 Hydromorphone Hcl 0.5 Mg/0.5 Ml Syringe IVPUSH 0.25 mg Q6H PRN Administration Pain, Mild (Pain Scale 1-3) Sodium Chloride 1,000 mls @ 500 mls/hr 07/24/20 15:00 07/24/20 15:01 Ns IVCONT 07/24/20 16:59 500 mls/hr .Q2H ASCENCION Administration Lorazepam 0.5 mg 07/23/20 23:15 07/24/20 14:00 Lorazepam 0.5 Mg Tablet PO 0.5 mg Q8H PRN Administration Anxiety Magnesium Hydroxide 30 ml 07/21/20 17:14 Milk Of Magnesia 30 Ml Oral.Susp PO DAILY PRN Constipation Nystatin 500,000 unit 07/13/20 17:15 07/24/20 12:34 Nystatin Oral Susp 500,000 Unit/5 Ml Oral.Susp PO 500,000 unit QID ASCENCION Administration Protocol Polyethylene Glycol 17 gm 07/21/20 17:14 Polyethylene Glycol 3350 17 Gm Powd.Pack PO DAILY PRN Constipation Prednisone 40 mg 07/24/20 09:00 07/24/20 08:25 Prednisone 20 Mg Tablet PO 40 mg DAILY ASCENCION Administration Sodium Chloride 3 ml 07/04/20 00:00 07/24/20 14:00 0.9 % Sodium Chloride Flush 3 Ml Syringe IVFLUSH 3 ml QSHIFT ASCENCION Administration Sodium Chloride 3 ml 07/24/20 08:00 07/24/20 15:02 0.9 % Sodium Chloride Flush 3 Ml Syringe IVFLUSH Not Given QSHIFT ASCENCION Sodium Chloride 3 ml 07/24/20 08:00 07/24/20 15:02 0.9 % Sodium Chloride Flush 3 Ml Syringe IVFLUSH Not Given QSHIFT ASCENCION Thiamine HCl 200 mg 07/17/20 10:45 07/24/20 08:25 Thiamine Hcl 100 Mg Tablet PO 200 mg DAILY ASCENCION Administration Labs CBC & Chem 7: 07/23/20 05:30 07/24/20 05:27 Microbiology Microbiology Results: Microbiology 07/03/20 17:50 Blood - Venous Blood Culture - Final No growth after 5 days. 07/03/20 17:17 Blood - Venous Blood Culture - Final No growth after 5 days. Assessment and Plan (1) Pneumothorax: Status: Acute (2) Pneumomediastinum: Status: Acute (3) Acute respiratory distress syndrome (ARDS) due to COVID-19 virus: Status: Acute (4) Acute respiratory failure with hypoxia: Status: Acute Assessment and Plan: 65 year old man admitted with acute respiratory failure secondary to Covid 19/ARDS persistent hypoxia. 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 A CT of the chest on 07/21 shows extensive pneumomediastinum. Extensive subcutaneous emphysema involvingthe neck, right shoulder, right axilla, and right chest wall. cxr overnight: Lung volumes are symmetric. Redemonstrated mild bibasilar opacities, left greater than right and similar to prior. Small biapical pneumothoraces appear similar compared to prior. No significant pleural effusion. The cardiomediastinal silhouette is stable. Redemonstrated pneumomediastinum and soft tissue gas in the bilateral chest wall. still has sob , tachycardic , abg reviewed seems 7.54/36/60. continue wean gradually,supportive care-albuterol hfa,taper prednisone ,lovenox , famotidine, revito. Consider ICU level of care if the pneumothoraces get worse an or his oxygen requirements continued to increase Patient is getting somewhat sleepy, borderline blood pressure still tachycardic and tachypneic: Will get chest CT, added IV fluids, stop Ativan. d/w Dr Lovett -ICU follow-up pending Urinary discomfort: will send UA. case d/w ICU -will need ICU level of care . Obesity. BMI 34.4. Discussed importance of weight loss. (5) Hypoxia: Status: Acute (6) COVID-19: Status: Acute
--- NOTE | 2020-07-24 17:31 | PC.NURSE ---
PT DESATING INTO THE 70'S ON 50L/100% HIGH FLOW AND 100% NRB MULTIPLE TIMES DURING THIS SHIFT.HR RANGING BETWEEN 125-155 UNCHANGED BY PRN ATIVAN/MORPHINE. 1500 SBP 80'S. HOSPITALIST MADE AWARE. ORDERED TRX TO ICU AND 1LNS BOLUS. SBP WENT UP 98. PATIENT PLACED ON BIPAP , SATING 95%. THEN RAPID RESPONSE CALLED DUE PT'S INABILITY TO MAINTAIN SATURATION ON 100% NRB AND 6L NC FOR TRANSFER. PATIENT DESAT INTO 70% BECAME LETHARGIC AND CYANOTIC.PATIENT PLACE BACK ON BIPAP ALLOWED TO RECOVER AND TRANSFERRED TO ICU ORDERED.
[2020-07-24] MEDS: fentaNYL citrate/PF 100 MCG/2 ML VIAL IVPUSH (17:45)
[2020-07-24] MEDS: Albumin Human 25 % 100 ML IV (17:55)
[2020-07-24] MEDS: LORazepam 2 MG/ML VIAL 0.5 MG IVPUSH ×2 (17:55→21:00)
--- NOTE | 2020-07-24 18:08 | PC.NURSE ---
Addendum entered by Yudelka Garcia RN 07/24/20 19:43: PATIENTS CALLED AND UPDATED ON PATIENTS TRANSFER TO ICU AND STATUS. VERIFIED WITH THAT IF PATIENTS CONDITION CONTINUES TO WORSEN SHE WOULD LIKE HIM TO REMAIN A FULL CODE AND TO BE INTUBATED. PA AND ONCOMING RN NOTIFIED. Addendum entered by Yudelka Garcia RN 07/24/20 19:06: PT WOKE UP AT 1850 AND STARTED THRASHING IN BED, VERY ANXIOUS, HR 170S, 02 50-60%, RR 30-40S. PA AND RT CALLED TO BEDSIDE. PRECEDEX GTT STARTED AT 1 MCG/KG/HR WITH GTT WEIGHT OF 108.8 KG. PRN MORPHINE 2MG ADMINISTERED WELL. CPAP INCREASED TO 15 AND 100%. Original Note: STAT TRANSFER TO ICU AT 1710 ON HIGH FLOW 100%/60L AND 100% NRB.. PATIENT ALERT X 4, ANXIOUS BUT COOPERATIVE. MD, RT AND RN BEDSIDE FOR ASSESSMENT. HR 120-130S ON TELE. LS CLEAR IN UPPERS/DIM IN BASES. SOB WITH MOVEMENT, LABOR BREATHING NOTED. C/O PAIN 2/10 TO GROIN, PREVIOUSLY TREATED WITH PRN MEDICATION WITH SOME IMPROVEMENT. AT APPROXIMATELY 1735 HR NOTED IN 150S, 02 50-60%S, RR 40-50S, ACCESSORY MUSCLE USE, SKIN DUSKY IN COLOR. MD BEDSIDE. ORDERED AND ADMINISTERED ATIVAN 0.5 MG IVP AND FENTANLY 100 MCG IVP. MD CHANGED PATIENT TO CPAP WITH INITIAL SETTINGS OF CPAP 15 ON 100%. WAS ABLE TO TITRATE DOWN TO CURRENT SETTINGS OF CPAP 5 ON 60% WITH A SAT OF 88%. PER MD GOAL O2 > 85%.WILL CONTINUE TO MONITOR. MAP GOAL AT THIS TIME IS > 55 PER MD. ALBUMIN TRANSFUSING AT THIS TIME.
[2020-07-24] MEDS: dexmedeTOMIDidine HCL/NS 400 MCG/100 ML INFUS..BTL 27.22 MCG IVCONT (18:50)
[2020-07-24] MEDS: Morphine Sulfate 2 MG/ML CARTRIDGE IVPUSH ×2 (18:55→21:13)
[2020-07-24] MEDS: Ketamine HCl 500 MG/5 ML VIAL 100 MG IVPUSH (21:18)
[2020-07-24] MEDS: propofoL 1,000 MG/100 ML VIAL 9.8 MG IVCONT (21:25)
--- NOTE | 2020-07-24 21:32 | XR_ITS ---
EXAMINATION: XR CHEST CLINICAL INFORMATION: Check placement COMPARISON: 07/24/2020 TECHNIQUE: Frontal view of the chest was obtained. FINDINGS: Endotracheal tube terminates above the level of the clavicles, approximately 9 cm above the lai. Cardiac leads overlie the chest. Diffuse soft tissue gas again noted extending into the neck, increased from prior. Lung volumes are low. Mild patchy bilateral opacities. Small right-sided pneumothorax is unchanged. Small left-sided pneumothorax is unchanged. The cardiomediastinal silhouette is unchanged, with diffuse pneumomediastinum. XR/XR chest 1V IMPRESSION: Endotracheal tube terminating approximately 9 cm above the lai. Advancement recommended. Increasing subcutaneous emphysema. Persistent diffuse pneumomediastinum. Similar appearance of small bilateral pneumothoraces. Patchy bilateral airspace opacities. This critical result was discussed with Vijay Lovett MD by telephone at 07/24/2020 9:56 PM and it was ascertained that the content and urgency of the report was understood at the time of direct communication.
--- NOTE | 2020-07-24 21:45 | P.PCNCC_ITS ---
Procedures Chest Tube Chest Tube 1: Chest tube location: Mid-Clavicular Chest (Right midclavicular) Size of tube: 14 Tube sutured to skin: Yes Post procedure: sutured to skin Mcgovern of air heard: Yes Tube Drainage: none (Air in water chamber) Post procedure CXR?: No Progress: Emergent right-sided midclavicular 14 Mongolian pigtail chest tube placed for refractory hypoxemia and known bilateral pneumothoraces in patient that developed hypoxemia refractory to ventilatory support and manual bagging immediately prior to starting chest compressions.
--- NOTE | 2020-07-24 21:55 | W.PM.CCHP ---
Procedures Chest Tube Chest Tube 2: Chest tube location: Mid-Clavicular Chest (Left) Size of tube: 14 Tube sutured to skin: No Mcgovern of air heard: Yes Tube Drainage: fluid (Sanguinous fluid) Amount of initial drainage (ml): 20 Post procedure CXR?: No Progress: Emergent left-sided midclavicular chest tube placed during the CPR for empiric decompression of unknown left-sided pneumothorax with no effect on ongoing CPR.
--- NOTE | 2020-07-24 22:28 | W.PM.CCHP ---
Procedures Intubation Intubation Comments: Patient with acute respiratory distress, refractory to CPAP, requiring emergent intubation for hypoxemia. Patient intubated with 7.5 cuffed ET tube under glide scope guidance with visualization of vocal cords, without immediate complications. ET tube position verified with chest XRAY <Laura Lim - Last Filed: 07/24/20 22:32> Consent for Procedure: Emergent-no informed consent obtained <Laura Lim - Last Filed: 07/24/20 22:32> Time out performed: Yes <Laura Lim - Last Filed: 07/24/20 22:32> Sedative: ketamine <Laura Lim - Last Filed: 07/24/20 22:32> Mg given: 100 <Laura Lim - Last Filed: 07/24/20 22:32> ET tube size: 7.5 <Laura Lim - Last Filed: 07/24/20 22:32> ET tube uncuffed: No <Laura Lim - Last Filed: 07/24/20 22:32> Tube secured depth (cm): 24 <Laura Lim - Last Filed: 07/24/20 22:32> Tube secured location: lips <Laura Lim - Last Filed: 07/24/20 22:32> Tube placement confirmation: visualized tube passing through cords, equal breath sounds bilaterally and confirmation by capnometry <Laura Lim - Last Filed: 07/24/20 22:32> Patient tolerated procedure: well and no complications <Laura Lim - Last Filed: 07/24/20 22:32> Intubation complications: none <Laura Lim - Last Filed: 07/24/20 22:32>
--- NOTE | 2020-07-24 22:40 | PM.CCPN ---
Subjective Subjective Date of Service: 07/24/20 Interval History: 65-year-old gentleman with underlying history of lumbar disc disease status post back surgery and status post left knee surgery admitted on 07/03/2020 with several day history of upper respiratory symptoms. On ER evaluation her was noted to be hypoxemic on room air. His COVID-19 test was positive in his CT chest demonstrated scattered pulmonary ground-glass infiltrates characteristic of COVID-19. No pulmonary emboli noted. He was admitted to [facility] and started on dexamethasone and supplemental oxygen. He has not received remdesivir convalescent plasma secondary to been out of the time range. His hospital course was complicated by progressive hypoxemia and on 07/06/2020 he was transferred to intensive care unit requiring CPAP support. He was diuresed did well and has been transferred out of intensive care unit on 07/08/2020. His echocardiogram on 07/09/2020 demonstrated diastolic dysfunction. Patient was continued to be monitored on [facility] with fluctuating O2 requirements. He was transferred to intensive care on 07/14/2020 for close monitoring and briefly CPAP support. The after he has again been titrated to high-flow nasal cannula and transferred to [facility] on 07/19/2020. Patient continued with high FiO2 requirements on high-flow nasal cannula. He was evaluated by pulmonary service and started on additional systemic glucocorticoids. He developed initially small right pneumothorax on 07/19/2020 that further progressed to small bilateral pneumothoraces and pneumomediastinum on 07/21/2020. On 07/24/2020 he was moved to intensive care unit at approximately 5 p.m. for close monitoring of intermittent desaturation episodes. Patient required placement on CPAP 5 cm and 60% with improvement in oxygenation to 90%. Over the course of the next 4 hours patient has had multiple episodes of desaturations associated with anxiety and pulling off his CPAP mask despite administration of benzodiazepines and Precedex drip. At approximately 9:00 p.m. patient developed hypoxemia refractory to CPAP support and has been emergently intubated at approximately 9:20 p.m. About 20 minutes after the intubation patient's hypoxemia progressed and became refractory to ventilatory support and manual bagging resulting in PEA cardiopulmonary arrest. Emergent right-sided chest tube was placed before starting compressions at approximately 9:45p. CPR was performed for approximately 25 minutes with concurrent placement of left-sided chest tube with no clinical improvement and patient was pronounced at 10:10 p.m. and daughter notified. Physical Exam Vital Signs: Vital Signs: Last Vital Signs Temp 96.0 F L 07/24/20 17:21 Pulse 111 H 07/24/20 20:46 Resp 28 H 07/24/20 19:38 BP 153/76 H 07/24/20 20:46 Pulse Ox 96 07/24/20 20:46 Body Mass Index 34.4 Objective Data Labs CBC & Chem 7: 07/23/20 05:30 07/24/20 05:27 Labs: Laboratory Results - last 24 hr 07/24/20 07/24/20 05:27 08:15 ABG pH 7.54 H ABG pCO2 36 ABG pO2 60 L ABG HCO3 30 H ABG O2 Saturation 87.0 ABG Base Excess 8.1 Oxygen Given 100% Sodium 137 Potassium 5.0 Chloride 98 Carbon Dioxide 27 Anion Gap 17 BUN 30 H Creatinine 0.79 Estim Creat Clear Calc 116.7 Estimated GFR > 60 Random Glucose 197 H Calcium 8.2 L Microbiology Microbiology Results: Microbiology 07/03/20 17:50 Blood - Venous Blood Culture - Final No growth after 5 days. 07/03/20 17:17 Blood - Venous Blood Culture - Final No growth after 5 days. Progress Note: A&P Assessment and plan (1) Pneumothorax: Status: Acute (2) Pneumomediastinum: Status: Acute (3) Acute respiratory distress syndrome (ARDS) due to COVID-19 virus: Status: Acute (4) Acute respiratory failure with hypoxia: Status: Acute (5) COVID-19: Status: Acute (6) Cardiopulmonary arrest: Status: Acute Time Spent With Patient Total time spent with greater than 50% in coordination of care (as documented) at patient's floor/unit and/or counseling patient:: 0 Critical Care Time Critical Care Time (minutes): 180 Excluding separately billable procedures
--- NOTE | 2020-07-24 23:00 | PC.NURSE ---
ASSUMED CARE OF PT AT 1899. PT SITTING UP IN BED ON CPAP FACEMASK. PRECEDEX HAD JUST BEEN STARTED. DESATS QUICKLY. RESP RATE 30'S. DEZ HOOVER AND MD PRABHAKAR AT BEDSIDE. PT RELAXED AFTER PRECEDEX STARTED BUT LATER BECAME ANXIOUS AGAIN AND BROKE CPAP MASK TRYING TO REMOVE IT. RESP THERAPIST WAS CALLED AND REPLACED THE BROKEN MASK. DEZ HOOVER ORDERED ATIVAN 0.5 MG IV WHICH WAS GIVEN WITH GOOD EFFECT. AT 2114, BP DROPPED TO A SYSTOLLIC 60'S-70'S. CLIENT RELATION SPECIALIST AT BEDSIDE. PT UNRESPONSIVE. DR PRABHAKAR AT BEDSIDE. PLAN TO INTUBATE AND KETAMINE 100 MG IV GIVEN AT 2117. PT INTUBATED WITH 8.0 ETT AT 22 CM AT THE LIP. PCXR DONE AND REVIEWED BY DR PRABHAKAR. PT HAS BILAT PNEUMOTHORAX. ATTEMPT WERE MADE TO INSERT CENTRAL LINE BUT NOT SUCCESSFUL. LEVOPHED INFUSING PERIPHERALLY AT MAX RATE. BP IMPROVED. INSERTED BILAT CHEST TUBES. DURING THE FIRST CHEST TUBE INSERTION ON THE RIGHT UPPER ANTERIOR SIDE, PT STARTED TO BECOME BRADYCARDIC AND HAD NO PULSE. CHEST TUBE WAS COMPLETED AND CPR WAS STARTED WITH THE SEDRICK DEVICE. SEVERAL DOSES OF EPINEPHRINE WERE GIVEN, BICARB AND CALCIUM CHLORIDE ALSO WITH NO SUCCESS. CODE WAS CALLED BY DR PRABHAKAR AT 2209. [facility] [place] PATIENT ACCOUNTS CLERK AWARE. DR PRABHAKAR CALLED PT'S . [employer] NOTIFIED AND DECLINED THE CASE; SPOKE TO SHEELA, CASE # [id number]. AND DAUGHTER COMING IN TO SEE PT.
--- NOTE | 2020-07-24 23:23 | P.DN_ITS ---
Discharge Sum: Prov Provider Primary care physician: Chaz Bearden MD Consults: 07/03/20 21:05 Consult to Infectious Diseases Routine Consulting Provider: Renetta Goncalves Reason for consultation: acute respiratory failure, COVID-19 Has provider been notified: No 07/16/20 15:18 Consult to Pulmonology Routine Consulting Provider: Phi Feliciano Reason for consultation: acute respiratory hypoxemic failure/covid Has provider been notified: No Discharge Sum: Diag Contributing Factors (1) Pneumothorax: (2) Pneumomediastinum: (3) Acute respiratory distress syndrome (ARDS) due to COVID-19 virus: (4) Acute respiratory failure with hypoxia: (5) COVID-19: (6) Cardiopulmonary arrest: Discharge Sum: Summary Date and Time Date of admission: 07/03/20 20:13 Date of : 07/24/20 Time of : 22:10 Summary Details: 65-year-old gentleman with underlying history of lumbar disc disease status post back surgery and status post left knee surgery admitted on 07/03/2020 with several day history of upper respiratory symptoms. On ER evaluation her was noted to be hypoxemic on room air. His COVID-19 test was positive in his CT chest demonstrated scattered pulmonary ground-glass infiltrates characteristic of COVID-19. No pulmonary emboli noted. He was admitted to [facility] and started on dexamethasone and supplemental oxygen. He has not received remdesivir convalescent plasma secondary to been out of the time range. His hospital course was complicated by progressive hypoxemia and on 07/06/2020 he was transferred to intensive care unit requiring CPAP support. He was diuresed did well and has been transferred out of intensive care unit on 07/08/2020. His echocardiogram on 07/09/2020 demonstrated diastolic dysfunction. Patient was continued to be monitored on general medical [facility] with fluctuating O2 requirements. He was transferred to intensive care on 07/14/2020 for close monitoring and briefly CPAP support. The after he has again been titrated to high-flow nasal cannula and transferred to [facility] on 07/19/2020. Patient continued with high FiO2 requirements on high-flow nasal cannula. He was evaluated by pulmonary service and started on additional systemic glucocorticoids. He developed initially small right pneumothorax on 07/19/2020 that further progressed to small bilateral pneumothoraces and pneumomediastinum on 07/21/2020. On 07/24/2020 he was moved to intensive care unit at approximately 5 p.m. for close monitoring of intermittent desaturation episodes. Patient required placement on CPAP 5 cm and 60% with improvement in oxygenation to 90%. Over the course of the next 4 hours patient has had multiple episodes of desaturations associated with anxiety and pulling off his CPAP mask despite administration of benzodiazepines and Precedex drip. At approximately 9:00 p.m. patient developed hypoxemia refractory to CPAP support and has been emergently intubated at approx imately 9:20 p.m. About 20 minutes after the intubation patient's hypoxemia progressed and became refractory to ventilatory support and manual bagging resulting in PEA cardiopulmonary arrest. Emergent right-sided chest tube was placed before starting compressions at approximately 9:45p. CPR was performed for approximately 25 minutes with concurrent placement of left-sided chest tube with no clinical improvement and patient was pronounced at 10:10 p.m. and daughter notified. Discharge diagnoses: 1. Cardiopulmonary arrest 2. Acute respiratory failure with hypoxia 3. Bilateral Pneumothorax 4. Pneumomediastinum 5. Acute respiratory distress syndrome (ARDS) due to COVID-19 virus Additional Data Confirmation of as documented by pronouncing clinician: no pulse, no respirations, no heart sounds and pupils fixed and dilated Family: contacted Attending physician: Vijay Lovett MD Was code activated?: Yes Autopsy requested?: No hand cloth examiner notified?: No Organ bank notified?: Yes Hospice patient?: No
--- NOTE | 2020-07-25 02:21 | PC.NURSE ---
and daughter came in to see pt. Family took pt's belongings home. will call tomorrow with the home. Post mortem care done. Body sent to the [facility] [place].
== END 2020-07-25 02:00 | disposition expired | DRG 208 ==
LOC: HO.ED 19:30 → HO.ISO 20:55 → HO.ICU 07-06 18:27 → HO.IMC 07-08 10:29 → HO.ICU 07-08 10:39 → HO.IMC 07-09 05:42 → HO.ICU 07-13 10:32 → HO.IMC 07-16 13:19 → HO.ICU 07-16 13:22 → HO.IMC 07-16 18:31 → HO.ICU 07-24 16:22
PROVIDERS: Anesthesiology; Internal Medicine; Nurse Practitioner Acute Care; Nurse Practitioner Primary Care; Physician Assistant Medical; Admitting Provider Internal Medicine; Emergency Provider Emergency Medicine; PCP Internal Medicine; Visit Provider Internal Medicine Pulmonary Disease
DX: U07.1 COVID-19 (principal); J80 Acute respiratory distress syndrome; J12.82 Pneumonia due to coronavirus disease 2019; N17.9 Acute kidney failure, unspecified; E87.3 Alkalosis; E87.0 Hyperosmolality and hypernatremia; J93.83 Other pneumothorax; J84.10 Pulmonary fibrosis, unspecified; F41.9 Anxiety disorder, unspecified; I27.20 Pulmonary hypertension, unspecified; E66.9 Obesity, unspecified; Z68.34 Body mass index [BMI] 34.0-34.9, adult; Z87.891 Personal history of nicotine dependence
CPT/HCPCS: 36415; 36600; 71045; 71250; 71275; 80048; 80053; 82040; 82728; 82803; 82947; 83605; 83615; 83735; 83880; 84100; 84145; 84300; 84484; 85025; 85027; 85379; 85610; 85730; 86140; 86769; 87040; 93306; 93970; 94002; 94003; 94640; 94660; 94664; 94799; 96365; 96366; 96367; 96375; 99285; C1758; J0456; J0696; J1100; J1170; J1200; J1650; J1940; J2060; J2270; J2930; J3010; J3411; P9047; Q9967